=== PATIENT | male | born 1970 | race Hispanic/Latino ===

== ENCOUNTER 2016-11-24 04:33 | Inpatient (IN) | payer MEDICAID ==
--- NOTE | 2016-11-24 05:22 | ED PDOC ---
HPI: Psych/Substance Abuse Chief Complaint (Provider): pysch eval Additional Complaint(s): 46yo M in ED for eval of SI and depression-states he is homeless wanted to jump into the "river" and doesn't know how to swim tin efforts to kill himself. admits he isn't complains medication mental health meds. denies hallucinations <Flory Irwin - Last Filed: 11/24/16 05:15> <Alicia Garcia - Last Filed: 11/24/16 06:12> Time Seen by Provider: 11/24/16 05:08 Chief Complaint (Nursing): Psychiatric Evaluation Past Medical History Reviewed: Historical Data, Nursing Documentation, Vital Signs Vital Signs: Last Vital Signs Temp 98.1 F 11/24/16 05:02 Pulse 60 11/24/16 05:02 Resp 16 11/24/16 05:02 BP 147/80 11/24/16 05:02 Pulse Ox 96 11/24/16 05:02 - Medical History PMH: Bipolar Disorder, Depression, Schizophrenia Denies: Diabetes, Hepatitis, HIV, HTN, Chronic Kidney Disease, Seizures, Sexually Transmitted Disease - Family History Family History: States: Unknown Family Hx - Immunization History Hx Tetanus Toxoid Vaccination: Yes Hx Influenza Vaccination: No Hx Pneumococcal Vaccination: No <Flory Irwin - Last Filed: 11/24/16 05:15> Vital Signs: Last Vital Signs Temp 98.1 F 11/24/16 05:02 Pulse 60 11/24/16 05:02 Resp 16 11/24/16 05:02 BP 147/80 11/24/16 05:02 Pulse Ox 96 11/24/16 06:00 <Alicia Garcia - Last Filed: 11/24/16 06:12> - Home Medications Home Medications: Ambulatory Orders Medication Instructions Recorded Gabapentin [Neurontin] 400 mg PO TID #90 cap 10/01/16 QUEtiapine [Seroquel] 100 mg PO HS #30 tab 10/01/16 Sertraline [Zoloft] 100 mg PO DAILY #30 tab 10/01/16 traZODone [Desyrel] 100 mg PO HS PRN #30 tab 10/01/16 Gabapentin [Neurontin] 400 mg PO TID #90 cap 11/04/16 Mirtazapine [Remeron] 30 mg PO HS #30 tab 11/04/16 Sertraline [Zoloft] 100 mg PO DAILY #30 tab 11/04/16 traZODone [Desyrel] 50 mg PO HS PRN #30 tab 11/04/16 - Allergies Allergies/Adverse Reactions: Allergies Allergy/AdvReac Type Severity Reaction Status Date / Time FISH Allergy Severe RASH Verified 11/24/16 05:02 EGG Allergy RASH Verified 11/24/16 05:02 Penicillins Allergy RASH Verified 11/24/16 05:02 Review of Systems ROS Statement: Except As Marked, All Systems Reviewed And Found Negative Psych: Positive for: Depression, Suicidal ideation <Flory Irwin - Last Filed: 11/24/16 05:15> Physical Exam - Reviewed Nursing Documentation Reviewed: Yes Vital Signs Reviewed: Yes - Physical Exam Appears: Positive for: Non-toxic, No Acute Distress Head Exam: Positive for: ATRAUMATIC, NORMAL INSPECTION, NORMOCEPHALIC Skin: Positive for: Normal Color, Warm, DRY Eye Exam: Positive for: EOMI, Normal appearance, PERRL Cardiovascular/Chest: Positive for: Regular Rate, Rhythm Respiratory: Positive for: CNT, Normal Breath Sounds Gastrointestinal/Abdominal: Positive for: Normal Exam, Bowel Sounds, Soft. Negative for: Tenderness Neurologic/Psych: Positive for: Alert, Oriented, Mood/Affect (falt) <Flory Irwin - Last Filed: 11/24/16 05:15> - ECG O2 Sat by Pulse Oximetry: 96 - Progress ED Course And Treament: pt will alcohol levels, placed on 1:1 and crisis screening. <Flory Irwin - Last Filed: 11/24/16 05:15> Disposition - Patient ED Disposition Is Patient to be Admitted: Transfer of Care - Disposition Disposition Time: 06:00 Patient Signed Over To: Alicia Garcia Handoff Comments: crisis eval <Flory Irwin - Last Filed: 11/24/16 05:15> <Alicia Garcia - Last Filed: 11/24/16 06:12> - Clinical Impression Clinical Impression: Suicidal ideation - Disposition Condition: STABLE
--- NOTE | 2016-11-24 05:59 | ED PDOC ---
- ECG O2 Sat by Pulse Oximetry: 96 Medical Decision Making Medical Decision Making: Patient s/o from Yvonne Irwin PA-C at 0600 pending sobriety and crisis eval. Patient s/o to Dr. Victor at 0700 pending sobriety and crisis eval. Scribe Attestation: Documented by Sean Mccoy acting as a scribe for Alicia Garcia MD. Provider Scribe Attestation: All medical record entries made by the Scribe were at my direction and personally dictated by me. I have reviewed the chart and agree that the record accurately reflects my personal performance of the history, physical exam, medical decision making, and the department course for this patient. I have also personally directed, reviewed, and agree with the discharge instructions and disposition. Disposition - Clinical Impression Clinical Impression: Suicidal ideation - POA Present On Arrival: None - Disposition Disposition: Transfer of Care Disposition Time: 07:00 Condition: STABLE Patient Signed Over To: Brian Victor Handoff Comments: pending sobriety and crisis eval
--- NOTE | 2016-11-24 07:12 | ED PDOC ---
- Laboratory Results Result Diagrams: 11/24/16 08:20 11/24/16 08:28 - ECG O2 Sat by Pulse Oximetry: 96 (RA) Pulse Ox Interpretation: Normal Medical Decision Making Medical Decision Makin signed over to me by Yunier Garcia MD pending clinical sobriety, crisis evaluation 08 case discussed with motion picture set worker. EKG, labs, CXR, Ativan 1mg PO ordered. 0840 Prolonged QT noted on EKG per my interpretation. Will discuss with cardiology. [address] Glasgow in consideration of EKG finding and Zoloft in use by patient. Dr. Glasgow recommends monitoring patient and agrees with clearing him for psych admission. Recommends repeat EKG in AM Medically stable for psychiatric admission Disposition - Clinical Impression Clinical Impression: Suicidal ideation - POA Present On Arrival: None - Disposition Disposition: Admitted as In-Patient Disposition Time: 09:41 Condition: STABLE Additional Comments - Additional Comments Additional Comments: Scribe Attestation: Documented by Arik William acting as a scribe for Brian Victor MD. Provider Scribe Attestation: All medical record entries made by the Scribe were at my direction and personally dictated by me. I have reviewed the chart and agree that the record accurately reflects my personal performance of the history, physical exam, medical decision making, and the department course for this patient. I have also personally directed, reviewed, and agree with the discharge instructions and disposition.
[2016-11-24 08:26] LABS: ALB/GLOB RATIO 1.2 (1.0-2.1); ALKALINE PHOSPHATASE 123 U/L (38-126); ALT/SGPT 36 U/L (21-72); AST/SGOT 57 U/L (17-59); BILIRUBIN,TOTAL 0.8 mg/dl (0.2-1.3); BLOOD UREA NITROGEN 11 mg/dl (9-20); CALCIUM 9.2 mg/dL (8.4-10.2); CARBON DIOXIDE 21 mmol/L (22-30); CHLORIDE 106 mmol/L (98-107); GFR AFRICAN-AMERICAN > 60; GLUCOSE,RANDOM 81 mg/dL (75-110); POTASSIUM 4.3 MMOL/L (3.6-5.0); SODIUM 143 mmol/l (132-148); TOTAL PROTEIN 7.8 G/DL (6.3-8.2)
[2016-11-24 08:31] LABS: BASO % 0.3 % (0.0-2.0); EOS # 0.1 K/uL (0.0-0.7); EOS % 1.3 % (0.0-4.0); HEMATOCRIT 44.2 % (35.0-51.0); LYMPH # 1.4 K/uL (1.0-4.3); LYMPH % 18.8 % (20.0-40.0); MEAN CELL VOLUME 94.7 fl (80.0-94.0); MEAN CORPUSCULAR HEMOGLOBIN 32.4 pg (27.0-31.0); MEAN CORPUSCULAR HGB CONC 34.2 g/dL (33.0-37.0); MEAN PLATELET VOLUME 7.8 fl (7.2-11.7); MONO # 0.3 K/uL (0.0-0.8); MONO % 4.6 % (0.0-10.0); NEUT # 5.4 K/uL (1.8-7.0); NRBC % 0.1 % (0.0-0.0); WHITE BLOOD COUNT 7.2 K/uL (4.8-10.8)
--- NOTE | 2016-11-24 09:45 | RAD ---
HISTORY: psych clearance COMPARISON: Comparison made with prior chest radiograph 08/15/2012 TECHNIQUE: Chest PA and lateral FINDINGS: LUNGS: Moderately large hiatal hernia with what appears represent compressive type atelectasis left lung base. Additionally, there are slight increased/ coarsened interstitial markings with a few scattered peribronchial cuffing changes. Findings may represent sequela of reactive/ inflammatory airway disease. . PLEURA: No significant pleural effusion identified. No pneumothorax apparent. CARDIOVASCULAR: Heart size difficult to assess due to silhouetting border OSSEOUS STRUCTURES: Mild multilevel degenerative spondylosis of the thoracic spine. Additionally, a minor chronic anterior wedge deformities of multiple mid and lower thoracic segments. VISUALIZED UPPER ABDOMEN: Normal. OTHER FINDINGS: None. IMPRESSION: Moderately large hiatal hernia with what appears represent compressive type atelectasis left lung base. Additionally, there are slight increased/ coarsened interstitial markings with a few scattered peribronchial cuffing changes. Findings may represent sequela of reactive/ inflammatory airway disease. .
[2016-11-24] MEDS ORDERED: Alum-Mag Hydrox-Simethicone Susp (30 mL) PO PRN (13:04)
[2016-11-24] MEDS ORDERED: DiphenhydrAMINE 50 mg/ml Inj IM PRN (13:04)
[2016-11-24] MEDS ORDERED: Magnesium Hydroxide Susp 30 ml UD PO PRN (13:04)
[2016-11-24] MEDS ORDERED: Naproxen 500 MG TAB PO PRN (13:14)
--- NOTE | 2016-11-24 13:20 | CARD ---
APPROVED REPORT EKG Measurement Heart [id number] <Conclusion> Normal sinus rhythm Prolonged QT Abnormal ECG
--- NOTE | 2016-11-24 13:28 | PCM.PSYCH ---
Initial Psychiatric Evaluation - Initial Psychiatric Evaluation Type of Admission: Voluntary Legal Status: Capacity Chief Complaint (in patient's own words): i'm in pain Patient's Reaction to Hospitalization: cooperative. History of Present Illness and Precipitating Events: pt with history of alcohol, heroin, xanax dependence as well as depression. pt released from [facility] about 3 weeks ago. he was detoxed from alcohol/ benzos and opioids there and set to go to the [facility] for treatment. he did not go, but instead started working and again started drinking and using heroin. he states he uses about 6mg xanax, 8 drinks of rum and snorting 8-12 bags of heroin daily. he reports he did not take his psychiatric medications. he reports poor sleep and reports hearing voices telling him that he is worthless. pt reports suicidal thoughts, but feels safe in the hospital. he wants to again try to go to a rehab program and feels the [facility] helped him. he has been sober for an extended period of time after completing 3-4 months and states it was helpful to go to na/aa meetings. pt grew up in [place] , has his ged. he has family in [place] who is no longer supportive. he has no children. Current Medications: Active Medications Generic Name Dose Route Start Last Admin Trade Name Freq PRN Reason Stop Dose Admin Al Hydrox/Mg Hydrox/Simethicone 30 ml 11/24/16 13:04 Maalox Plus 30 Ml PO Q4 PRN Dyspepsia Clonidine HCl 0.1 mg 11/24/16 17:00 Catapres PO 11/27/16 17:01 Q8 IDALIA Cyclobenzaprine HCl 10 mg 11/24/16 13:10 Flexeril PO TID PRN Muscle spasm Diphenhydramine HCl 50 mg 11/24/16 13:04 Benadryl IM Q6 PRN Extrapyramidal S/S Unable PO Diphenhydramine HCl 50 mg 11/24/16 13:04 Benadryl PO Q6 PRN Extrapyramidal Symptoms Folic Acid 1 mg 11/25/16 09:00 Folic Acid PO DAILY IDALIA Gabapentin 400 mg 11/24/16 17:00 Neurontin PO TID IDALIA Haloperidol 5 mg 11/24/16 13:04 Haldol PO Q4 PRN Agitation Haloperidol Lactate 5 mg 11/24/16 13:04 Haldol IM Q4 PRN Agitation, Unable to Take PO Loperamide HCl 2 mg 11/24/16 13:08 Imodium PO Q4 PRN After Loose Bowel Movement Lorazepam 2 mg 11/24/16 13:04 Ativan IM Q4 PRN Anxiety/Agitation,Unable PO Lorazepam 2 mg 11/24/16 13:04 Ativan PO Q4 PRN Anxiety/Agitation Lorazepam 1 mg 11/24/16 17:00 Ativan PO BIDHS [facility] Magnesium Hydroxide 30 ml 11/24/16 13:04 Milk Of Magnesia PO HS PRN Constipation Multivitamins/Minerals 1 tab 11/25/16 09:00 Therapeutic-M Tab PO DAILY [facility] Naproxen 500 mg 11/24/16 13:14 Naproxen PO Q12 PRN Pain, severe (8-10) Ondansetron HCl 4 mg 11/24/16 13:09 Zofran Tab PO Q6 PRN Nausea/Vomiting Quetiapine Fumarate 50 mg 11/24/16 22:00 Seroquel PO HS [facility] Sertraline HCl 100 mg 11/25/16 09:00 Zoloft PO DAILY [facility] Thiamine HCl 100 mg 11/24/16 13:15 Vitamin B1 Tab PO DAILY [facility] Past Psychiatric History - Past Psychiatric History Previous Treatment History: Inpatient Prior Professional Help: recently at [facility] History of Abuse: denies History of ETOH/Drug Use: as per hpi History of Family Illness: pt denies Pertinent Medical Hx (Current Medical&Sleep Prob, Allergies): Allergies Allergy/AdvReac Type Severity Reaction Status Date / Time FISH Allergy Severe RASH Verified 11/24/16 05:02 EGG Allergy RASH Verified 11/24/16 05:02 Penicillins Allergy RASH Verified 11/24/16 05:02 QUEtiapine [Seroquel] 100 mg PO HS #30 tab 10/01/16 traZODone [Desyrel] 100 mg PO HS PRN #30 tab 10/01/16 Gabapentin [Neurontin] 400 mg PO TID #90 cap 11/04/16 Mirtazapine [Remeron] 30 mg PO HS #30 tab 11/04/16 Sertraline [Zoloft] 100 mg PO DAILY #30 tab 11/04/16 traZODone [Desyrel] 50 mg PO HS PRN #30 tab 11/04/16 Review of Systems - Psychiatric Psychiatric: As Per [facility] Mental Status Examination - Personal Presentation Personal Presentation: Looks stated age - Affect Affect: Constricted, Depressed - Motor Activity Motor Activity: Calm - Reliability in Providing Information Reliability in Providing Information: Good - Speech Speech: Organized - Mood Mood: Depressed, Anxious - Formal Thought Process Formal Thought Process: Hallucinations (hears voices telling him he's useless) - Hallucinations/Delusions Hallucinations: Auditory - Obsessions/Compulsions Obsessions: No Compulsions: No - Cognitive Functions Orientation: Person, Place, Situation, Time Sensorium: Alert Attention/Concentration: Attentive Abstract Thinking: [place] Estimate of Intelligence: Average Judgement: Intact, as evidence by: Insight regarding need for hospitalization Memory: Recent intact, as evidence by: Ability to recall events of the day, Recent impaired, as evidence by: Inability to recall events of the day - Risk Risk: Suicidal, Withdrawal, Diminished functioning - Strength & Assets Inventory Strength & Assets Inventory: Intelligence, Family support - Limitations Limitations: Other (lacks supports) DSM 5 DX - DSM 5 DSM 5 Diagnosis: polysubstance dependence (opioid/alcohol/sedative hypnotic) major depression recurrent severe with psychosis - Recommended/Plan of Treatment Treatment Recommendations and Plan of Treatment: admit to [facility] for safety and observation gather collateral information provide supportive therapy adjust medications- restart previous meds, prn meds for withdrawal. hospitalist consult- ankle injury disposition planning- refer back to [facility] Projected ELOS: 5-7 days Prognosis: fair - Smoking Cessation Smoking Cessation Initiated: No Reason for not providing: pt [place]
--- NOTE | 2016-11-24 14:10 | CP.PCM.CON ---
History of Present Illness - History of Present Illness History of Present Illness: 46 yo male with history of depression and multi-substance abuse admitted in psyche unit because of suicidal thoughts. Review of Systems - Review of Systems All systems: reviewed and no additional remarkable complaints except (aside from those mentioned above, 12 point system review were negative by me) Past Patient History - Past Medical History & Family History Past Medical History?: No - Past Social History Smoking Status: Heavy Smoker > 10 Cigarettes Daily Alcohol: > 2 Drinks/Day Drugs: Opiates, Prescription medications (Xanax) - CARDIAC Hx Cardiac Disorders: No Hx Hypertension: No - PULMONARY Hx Tuberculosis: No - NEUROLOGICAL HX Cerebrovascular Accident: No Hx Seizures: No - HEENT Hx HEENT Problems: No - RENAL Hx Chronic Kidney Disease: No - ENDOCRINE/METABOLIC Hx Endocrine Disorders: No - HEMATOLOGICAL/ONCOLOGICAL Hx Cancer: No Hx Human Immunodeficiency Virus (HIV): Yes (Not proved by lab work.) - INTEGUMENTARY Hx Dermatological Problems: No - MUSCULOSKELETAL/RHEUMATOLOGICAL Hx Falls: No - GASTROINTESTINAL Hx Gastrointestinal Disorders: No - GENITOURINARY/GYNECOLOGICAL Hx Sexually Transmitted Disorders: No - PSYCHIATRIC Hx Bipolar Disorder: Yes Hx Depression: Yes Hx Schizophrenia: Yes - SURGICAL HISTORY Hx Surgeries: Yes Hx Orthopedic Surgery: Yes (14 yrs ago rt ankle) - ANESTHESIA Hx Anesthesia: Yes Hx Anesthesia Reactions: No Hx Malignant Hyperthermia: No Meds Allergies/Adverse Reactions: Allergies Allergy/AdvReac Type Severity Reaction Status Date / Time FISH Allergy Severe RASH Verified 11/24/16 05:02 EGG Allergy RASH Verified 11/24/16 05:02 Penicillins Allergy RASH Verified 11/24/16 05:02 - Medications Medications: Current Medications Al Hydrox/Mg Hydrox/Simethicone (Maalox Plus 30 Ml) 30 ml PO Q4 PRN PRN Reason: Dyspepsia Clonidine HCl (Catapres) 0.1 mg PO Q8 IDALIA Stop: 11/27/16 17:01 Cyclobenzaprine HCl (Flexeril) 10 mg PO TID PRN PRN Reason: Muscle spasm Diphenhydramine HCl (Benadryl) 50 mg IM Q6 PRN PRN Reason: Extrapyramidal S/S Unable PO Diphenhydramine HCl (Benadryl) 50 mg PO Q6 PRN PRN Reason: Extrapyramidal Symptoms Folic Acid (Folic Acid) 1 mg PO DAILY IDALIA Gabapentin (Neurontin) 400 mg PO TID IDALIA Haloperidol (Haldol) 5 mg PO Q4 PRN PRN Reason: Agitation Haloperidol Lactate (Haldol) 5 mg IM Q4 PRN PRN Reason: Agitation, Unable to Take PO Loperamide HCl (Imodium) 2 mg PO Q4 PRN PRN Reason: After Loose Bowel Movement Lorazepam (Ativan) 2 mg IM Q4 PRN PRN Reason: Anxiety/Agitation,Unable PO Lorazepam (Ativan) 2 mg PO Q4 PRN PRN Reason: Anxiety/Agitation Lorazepam (Ativan) 1 mg PO BIDHS [facility] Magnesium Hydroxide (Milk Of Magnesia) 30 ml PO HS PRN PRN Reason: Constipation Multivitamins/Minerals (Therapeutic-M Tab) 1 tab PO DAILY [facility] Naproxen (Naproxen) 500 mg PO Q12 PRN PRN Reason: Pain, severe (8-10) Ondansetron HCl (Zofran Tab) 4 mg PO Q6 PRN PRN Reason: Nausea/Vomiting Quetiapine Fumarate (Seroquel) 50 mg PO HS [facility] Sertraline HCl (Zoloft) 100 mg PO DAILY [facility] Thiamine HCl (Vitamin B1 Tab) 100 mg PO DAILY IDALIA Physical Exam - Constitutional Appears: No Acute Distress, Other (sunburned/hyperemic face) - Head Exam Head Exam: ATRAUMATIC - Eye Exam Eye Exam: absent: Scleral icterus - ENT Exam ENT Exam: Mucous Membranes Moist - Neck Exam Neck exam: Negative for: Meningismus - Respiratory Exam Respiratory Exam: absent: Rhonchi, Wheezes, Respiratory Distress - Cardiovascular Exam Cardiovascular Exam: REGULAR RHYTHM, +S1, +S2 - GI/Abdominal Exam GI & Abdominal Exam: Soft. absent: Tenderness - Rectal Exam Rectal Exam: Deferred - Extremities Exam Extremities exam: Positive for: joint swelling (right ankle swollen, tender and painful on movement) - Neurological Exam Neurological exam: Alert, Oriented x3 - Psychiatric Exam Psychiatric exam: Normal Affect - Skin Skin Exam: Dry, Intact Results - Vital Signs Recent Vital Signs: Last Vital Signs Temp 98 F 11/24/16 09:10 Pulse 64 11/24/16 09:10 Resp 18 11/24/16 12:20 BP 134/64 11/24/16 09:10 Pulse Ox 96 11/24/16 09:41 - Labs Result Diagrams: 11/24/16 08:20 11/24/16 08:28 Assessment & Plan (1) Suicidal ideation Status: Acute Comment: psyche is managing (2) Swollen R ankle Status: Acute Comment: xray of right ankle. podiatry consult
--- NOTE | 2016-11-24 15:03 | CP.PCM.CON ---
History of Present Illness - History of Present Illness History of Present Illness: Podiatry consult note Past Patient History - Past Medical History & Family History Past Medical History?: No - Past Social History Smoking Status: Heavy Smoker > 10 Cigarettes Daily Alcohol: > 2 Drinks/Day Drugs: Opiates, Prescription medications (Xanax) - CARDIAC Hx Cardiac Disorders: No Hx Hypertension: No - PULMONARY Hx Tuberculosis: No - NEUROLOGICAL HX Cerebrovascular Accident: No Hx Seizures: No - HEENT Hx HEENT Problems: No - RENAL Hx Chronic Kidney Disease: No - ENDOCRINE/METABOLIC Hx Endocrine Disorders: No - HEMATOLOGICAL/ONCOLOGICAL Hx Cancer: No Hx Human Immunodeficiency Virus (HIV): Yes (Not proved by lab work.) - INTEGUMENTARY Hx Dermatological Problems: No - MUSCULOSKELETAL/RHEUMATOLOGICAL Hx Falls: No - GASTROINTESTINAL Hx Gastrointestinal Disorders: No - GENITOURINARY/GYNECOLOGICAL Hx Sexually Transmitted Disorders: No - PSYCHIATRIC Hx Bipolar Disorder: Yes Hx Depression: Yes Hx Schizophrenia: Yes - SURGICAL HISTORY Hx Surgeries: Yes Hx Orthopedic Surgery: Yes (14 yrs ago rt ankle) - ANESTHESIA Hx Anesthesia: Yes Hx Anesthesia Reactions: No Hx Malignant Hyperthermia: No Meds Allergies/Adverse Reactions: Allergies Allergy/AdvReac Type Severity Reaction Status Date / Time FISH Allergy Severe RASH Verified 11/24/16 05:02 EGG Allergy RASH Verified 11/24/16 05:02 Penicillins Allergy RASH Verified 11/24/16 05:02 - Medications Medications: Current Medications Al Hydrox/Mg Hydrox/Simethicone (Maalox Plus 30 Ml) 30 ml PO Q4 PRN PRN Reason: Dyspepsia Clonidine HCl (Catapres) 0.1 mg PO Q8 IDALIA Stop: 11/27/16 17:01 Cyclobenzaprine HCl (Flexeril) 10 mg PO TID PRN PRN Reason: Muscle spasm Last Admin: 11/24/16 14:14 Dose: 10 mg Diphenhydramine HCl (Benadryl) 50 mg IM Q6 PRN PRN Reason: Extrapyramidal S/S Unable PO Diphenhydramine HCl (Benadryl) 50 mg PO Q6 PRN PRN Reason: Extrapyramidal Symptoms Folic Acid (Folic Acid) 1 mg PO DAILY IDALIA Gabapentin (Neurontin) 400 mg PO TID IDALIA Haloperidol (Haldol) 5 mg PO Q4 PRN PRN Reason: Agitation Haloperidol Lactate (Haldol) 5 mg IM Q4 PRN PRN Reason: Agitation, Unable to Take PO Loperamide HCl (Imodium) 2 mg PO Q4 PRN PRN Reason: After Loose Bowel Movement Last Admin: 11/24/16 14:14 Dose: 2 mg Lorazepam (Ativan) 2 mg IM Q4 PRN PRN Reason: Anxiety/Agitation,Unable PO Lorazepam (Ativan) 2 mg PO Q4 PRN PRN Reason: Anxiety/Agitation Last Admin: 11/24/16 14:13 Dose: 2 mg Lorazepam (Ativan) 1 mg PO BIDHS [facility] Magnesium Hydroxide (Milk Of Magnesia) 30 ml PO HS PRN PRN Reason: Constipation Multivitamins/Minerals (Therapeutic-M Tab) 1 tab PO DAILY [facility] Naproxen (Naproxen) 500 mg PO Q12 PRN PRN Reason: Pain, severe (8-10) Last Admin: 11/24/16 14:13 Dose: 500 mg Ondansetron HCl (Zofran Tab) 4 mg PO Q6 PRN PRN Reason: Nausea/Vomiting Quetiapine Fumarate (Seroquel) 50 mg PO HS [facility] Sertraline HCl (Zoloft) 100 mg PO DAILY [facility] Thiamine HCl (Vitamin B1 Tab) 100 mg PO DAILY [facility] Last Admin: 11/24/16 14:15 Dose: 100 mg Results - Vital Signs Recent Vital Signs: Last Vital Signs Temp 98 F 11/24/16 09:10 Pulse 64 11/24/16 09:10 Resp 18 11/24/16 12:20 BP 134/64 11/24/16 09:10 Pulse Ox 96 11/24/16 09:41 - Labs Result Diagrams: 11/24/16 08:20 11/24/16 08:28
[2016-11-25 08:26] LABS: CHOLESTEROL 147 mg/dL (0-199)
[2016-11-25] MEDS: Multivitamin With Minerals Tab PO SCH (08:54)
--- NOTE | 2016-11-25 08:56 | PCM.PYCHPN ---
Psychiatric Progress Note - Psychiatric Progress Note Patient seen today, length of contact: discussed with team Patient Chief Complaint: feel ok Problems Identified/Issues Discussed: pt c/o nausea, diarrhea, muscle cramps in legs. he is still depressed. poor sleep. no c/o medication side effects. no c/o tremors or etoh withdrawal. states his ankle pain is improving. xray pending Medication Change: Yes (increase seroquel) Medical Record Reviewed: Yes Mental Status Examination - Cognitive Function Orientation: Person, Place, Situation, Time Memory: Intact Attention: WNL Concentration: WNL Association: WN Fund of Knowledge: [facility] Decription of patient's judgement and insights: fair - Mood Mood: Depressed, Anxious - Affect Affect: Constricted, Depressed - Formal Thought Process Formal Thought Process: No Impairment Psychotic Thoughts and Behaviors: denies a/v hallucinations - Suicidal Ideation Suicidal Ideation: No - Homicidal Ideation Homicidal Ideation: No Goal/Treatment Plan - Goal/Treatment Plan Need for Continued Stay: Remain at risks for inpatient hospitalization, Discharge may exacerbated symptoms Progress Toward Problem(s) and Goals/Treatment Plan: polysubstance dependence major depression recurrent severe continue current treatment increase seroquel refer to substance abuse treatment when psych symptoms stablize Estimated Date of D/C: 12/02/16 - Smoking Cessation Smoking Cessation Initiated: Yes
--- NOTE | 2016-11-25 11:11 | RAD ---
PROCEDURE: Right Ankle Radiographs. HISTORY: swollen right ankle post-injury COMPARISON: 08/20/2009 FINDINGS: BONES: No acute fracture. JOINTS: Tibiotalar articulation appears intact. Talonavicular osteoarthritis. Questionable partial ankylosis of posterior talocalcaneal articulation. Not fully evaluated. SOFT TISSUES: Normal. OTHER FINDINGS: None. IMPRESSION: No evidence of acute fracture.
[2016-11-26] MEDS: Multivitamin With Minerals Tab PO SCH (08:39)
--- NOTE | 2016-11-26 11:33 | PCM.PYCHPN ---
Psychiatric Progress Note - Psychiatric Progress Note Patient seen today, length of contact: discussed with team Patient Chief Complaint: i'm still depressed Problems Identified/Issues Discussed: pt seen in treatment team. still c/o feeling depressed. he is taking medications as prescribed. still with poor sleep. Medication Change: Yes (will increase neurontin at hs to help with sleep) Medical Record Reviewed: Yes Mental Status Examination - Cognitive Function Orientation: Person, Place, Situation, Time Memory: Intact Attention: WNL Concentration: WNL Association: WNL Fund of Knowledge: [facility] Decription of patient's judgement and insights: fair - Mood Mood: Depressed, Anxious - Affect Affect: Constricted, Depressed - Speech Speech: Appropriate - Formal Thought Process Formal Thought Process: No Impairment Psychotic Thoughts and Behaviors: denies a/v hallucinations - Suicidal Ideation Suicidal Ideation: No - Homicidal Ideation Homicidal Ideation: No Goal/Treatment Plan - Goal/Treatment Plan Need for Continued Stay: Remain at risks for inpatient hospitalization, Discharge may exacerbated symptoms Progress Toward Problem(s) and Goals/Treatment Plan: polysubstance dependence major depression recurrent severe continue current treatment increase neurontin refer to substance abuse treatment when psych symptoms stablize Estimated Date of D/C: 12/02/16
--- NOTE | 2016-11-26 12:05 | CP.PCM.CON ---
History of Present Illness - History of Present Illness History of Present Illness: 46 year old male seen at bedside in psych concerning pain s/p right ankle sprain suffered 3 days prior. Pt has been taking Naprosyn which has managed pain and swelling, the latter the patient has not noted in last 36 hours. Pt has no acute issue, Pain is currently a 3/10, well controlled. Pt denies recent f/c/cp/sob/n/v/f/c. Pt report she has a history of right foot sub-talar joint fusion. Past Patient History - Past Medical History & Family History Past Medical History?: No - Past Social History Smoking Status: Heavy Smoker > 10 Cigarettes Daily Alcohol: > 2 Drinks/Day Drugs: Opiates, Prescription medications (Xanax) - CARDIAC Hx Cardiac Disorders: No Hx Hypertension: No - PULMONARY Hx Tuberculosis: No - NEUROLOGICAL HX Cerebrovascular Accident: No Hx Seizures: No - HEENT Hx HEENT Problems: No - RENAL Hx Chronic Kidney Disease: No - ENDOCRINE/METABOLIC Hx Endocrine Disorders: No - HEMATOLOGICAL/ONCOLOGICAL Hx Cancer: No Hx Human Immunodeficiency Virus (HIV): Yes (Not proved by lab work.) - INTEGUMENTARY Hx Dermatological Problems: No - MUSCULOSKELETAL/RHEUMATOLOGICAL Hx Falls: No - GASTROINTESTINAL Hx Gastrointestinal Disorders: No - GENITOURINARY/GYNECOLOGICAL Hx Sexually Transmitted Disorders: No - PSYCHIATRIC Hx Bipolar Disorder: Yes Hx Schizophrenia: Yes Hx Substance Use: Yes (heroin,marijuana,xanax) - SURGICAL HISTORY Hx Surgeries: Yes Hx Orthopedic Surgery: Yes (14 yrs ago rt ankle) - ANESTHESIA Hx Anesthesia: Yes Hx Anesthesia Reactions: No Hx Malignant Hyperthermia: No Meds Allergies/Adverse Reactions: Allergies Allergy/AdvReac Type Severity Reaction Status Date / Time FISH Allergy Severe RASH Verified 11/24/16 05:02 EGG Allergy RASH Verified 11/24/16 05:02 Penicillins Allergy RASH Verified 11/24/16 05:02 - Medications Medications: Current Medications Al Hydrox/Mg Hydrox/Simethicone (Maalox Plus 30 Ml) 30 ml PO Q4 PRN PRN Reason: Dyspepsia Clonidine HCl (Catapres) 0.1 mg PO Q8 IDALIA Stop: 11/27/16 17:01 Last Admin: 11/26/16 08:37 Dose: 0.1 mg Cyclobenzaprine HCl (Flexeril) 10 mg PO TID PRN PRN Reason: Muscle spasm Last Admin: 11/26/16 08:38 Dose: 10 mg Diphenhydramine HCl (Benadryl) 50 mg IM Q6 PRN PRN Reason: Extrapyramidal S/S Unable PO Diphenhydramine HCl (Benadryl) 50 mg PO Q6 PRN PRN Reason: Extrapyramidal Symptoms Last Admin: 11/25/16 12:42 Dose: 50 mg Folic Acid (Folic Acid) 1 mg PO DAILY [facility] Last Admin: 11/26/16 08:38 Dose: 1 mg Gabapentin (Neurontin) 800 mg PO HS [facility] Gabapentin (Neurontin) 400 mg PO BID [facility] Haloperidol (Haldol) 5 mg PO Q4 PRN PRN Reason: Agitation Haloperidol Lactate (Haldol) 5 mg IM Q4 PRN PRN Reason: Agitation, Unable to Take PO Loperamide HCl (Imodium) 2 mg PO Q4 PRN PRN Reason: After Loose Bowel Movement Last Admin: 11/26/16 08:39 Dose: 2 mg Lorazepam (Ativan) 2 mg IM Q4 PRN PRN Reason: Anxiety/Agitation,Unable PO Lorazepam (Ativan) 2 mg PO Q4 PRN PRN Reason: Anxiety/Agitation Last Admin: 11/26/16 08:37 Dose: 2 mg Lorazepam (Ativan) 1 mg PO BID [facility] Last Admin: 11/26/16 11:16 Dose: Not Given Magnesium Hydroxide (Milk Of Magnesia) 30 ml PO HS PRN PRN Reason: Constipation Multivitamins/Minerals (Therapeutic-M Tab) 1 tab PO DAILY [facility] Last Admin: 11/26/16 08:39 Dose: 1 tab Naproxen (Naproxen) 500 mg PO Q12 PRN PRN Reason: Pain, severe (8-10) Last Admin: 11/24/16 14:13 Dose: 500 mg Ondansetron HCl (Zofran Tab) 4 mg PO Q6 PRN PRN Reason: Nausea/Vomiting Quetiapine Fumarate (Seroquel) 100 mg PO HS [facility] Last Admin: 11/25/16 21:06 Dose: 100 mg Sertraline HCl (Zoloft) 100 mg PO DAILY [facility] Last Admin: 11/26/16 08:39 Dose: 100 mg Thiamine HCl (Vitamin B1 Tab) 100 mg PO DAILY [facility] Last Admin: 11/26/16 08:39 Dose: 100 mg Physical Exam - Constitutional Appears: Non-toxic, No Acute Distress - Respiratory Exam Respiratory Exam: Clear to Auscultation Bilateral, NORMAL BREATHING PATTERN. absent: Chest Wall Tenderness, Decreased Breath Sounds - Extremities Exam Extremities exam: Negative for: calf tenderness, joint swelling, pedal edema Additional comments: Right foot focused. VASC: DP and Pt pedal pulses are fully intact, graded 2/4. No edema noted to right lower extremity. Negative for calt tenderness. NEURO: Protective sensation grossly intact to level of digits. MUSCK: Tenderness along lateral collateral ligaments. Severe 23 degree forefoot abduction noted. Limitation to ankle, joint ROM, absent crepitius. Pedal muscle strength to right leg graded 5/5 though weaker compared to contralateral limb in anterior, and posterior muscle groups. . Decreased muscle tone of right left and foot muscle. BIOMECH: Shortened stride lenght noted. Right foot absent notable heel contact moment, ground contact on this limb is into mid-stance. Base of gait unremarkable. Significant right shoulder drop noted. Abductory twist noted of right limb. 2.7 cm limb length discrepancy noted, right shorter than left, discrepency originating proximal to level of knee joints, structural in nature. No STJ ROM noted. Limitation to - Neurological Exam Neurological exam: Alert, Oriented x3 Results - Vital Signs Recent Vital Signs: Last Vital Signs Temp 97.1 F L 11/26/16 10:00 Pulse 65 11/26/16 10:00 Resp 18 11/26/16 10:00 BP 137/84 11/26/16 10:00 Pulse Ox 96 11/24/16 09:41 - Labs Result Diagrams: 11/24/16 08:20 11/24/16 08:28 Labs: Laboratory Results - last 24 hr 11/25/16 07:00 Hemoglobin A1c 4.9 Assessment & Plan - Assessment and Plan (Free Text) Assessment: 46 year old male 1) Right ankle inversion strain injury low, grade, no suspected ATFL of CF rupture 2) Right limb lenght discrepancy, level unknown. Plan: Pt evaluated and treated with attending, Dr. Renner present. - Radiographs reviewed, unremarkable for complications of inversion injury. -Sierra compression applied to accommodate swelling, Weight bearing as tolerated to heel, Post-op shoe to right foot. -continue Naprosyn as needed for pain. F/U in podiatry clinic for secondary bio-mechanical exam, pelvic and rojas x- ray to asses pelvic or spinal involvement in limb-lenght discrepancy and for assessment of appropriate heel lift addition for shoe gear. - Date & Time Date: 11/26/16 Time: 11:50
[2016-11-27] MEDS: Multivitamin With Minerals Tab PO SCH (08:54)
--- NOTE | 2016-11-27 13:09 | PCM.PYCHPN ---
Psychiatric Progress Note - Psychiatric Progress Note Patient seen today, length of contact: discussed with team Patient Chief Complaint: things are a little better Problems Identified/Issues Discussed: pt denies medication side effects. fair sleep. no c./o alcohol withdrawal. remains depressed. Medication Change: No ( ) Medical Record Reviewed: Yes Mental Status Examination - Cognitive Function Orientation: Person, Place, Situation, Time Memory: Intact Attention: WNL Concentration: WNL Association: WNL Fund of Knowledge: [facility] Decription of patient's judgement and insights: fair - Mood Mood: Depressed, Anxious - Affect Affect: Constricted, Depressed - Speech Speech: Appropriate - Formal Thought Process Formal Thought Process: No Impairment Psychotic Thoughts and Behaviors: denies a/v hallucinations - Suicidal Ideation Suicidal Ideation: No - Homicidal Ideation Homicidal Ideation: No Goal/Treatment Plan - Goal/Treatment Plan Need for Continued Stay: Remain at risks for inpatient hospitalization, Discharge may exacerbated symptoms Progress Toward Problem(s) and Goals/Treatment Plan: polysubstance dependence major depression recurrent severe continue current treatment- will start to taper ativan again tomorrow continue neurontin refer to substance abuse treatment when psych symptoms stablize Estimated Date of D/C: 12/02/16
--- NOTE | 2016-11-28 08:48 | PCM.PYCHPN ---
Psychiatric Progress Note - Psychiatric Progress Note Patient seen today, length of contact: discussed with team Patient Chief Complaint: i want to stay now Problems Identified/Issues Discussed: pt reports he was anxious yesterday and that's why he asked to leave. he wants to stay and wants to go to the [facility] pt is agreeable to an increase in his neurontin. he is starting to participate more in groups and treatment. Medication Change: Yes (increase neurontin) Medical Record Reviewed: Yes Mental Status Examination - Cognitive Function Orientation: Person, Place, Situation, Time Memory: Intact Attention: WNL Concentration: WNL Association: [facility] Fund of Knowledge: [facility] Decription of patient's judgement and insights: fair - Mood Mood: Depressed, Anxious - Affect Affect: Constricted, Depressed - Speech Speech: Appropriate - Formal Thought Process Formal Thought Process: No Impairment Psychotic Thoughts and Behaviors: denies a/v hallucinations - Suicidal Ideation Suicidal Ideation: No - Homicidal Ideation Homicidal Ideation: No Goal/Treatment Plan - Goal/Treatment Plan Need for Continued Stay: Remain at risks for inpatient hospitalization, Discharge may exacerbated symptoms Progress Toward Problem(s) and Goals/Treatment Plan: polysubstance dependence major depression recurrent severe continue current treatment- will continue to taper ativan continue neurontin- will increase the dose refer to substance abuse treatment when psych symptoms stablize Estimated Date of D/C: 12/02/16
[2016-11-28] MEDS: Multivitamin With Minerals Tab PO SCH (08:51)
[2016-11-29] MEDS: Multivitamin With Minerals Tab PO SCH (09:01)
--- NOTE | 2016-11-29 11:56 | PCM.PYCHPN ---
Psychiatric Progress Note - Psychiatric Progress Note Patient seen today, length of contact: Patient evaluated, case discussed with staff, chart reviewed Patient Chief Complaint: "I'm so-so" Problems Identified/Issues Discussed: Patient reports that he continues to feel depressed and that his mood fluctuates. He denied current ideation to harm himself, no psychosis. He engages appropriately with staff and peers, but mainly seems to sit quietly and stay to himself. He denies adverse effects to medications. No symptoms of ETOH withdrawal. Medication Change: Yes (Stop Ativan) Medical Record Reviewed: Yes Mental Status Examination - Cognitive Function Orientation: Person, Place, Situation, Time Memory: Intact Attention: WNL Concentration: WNL Association: WNL Fund of Knowledge: WNL - Mood Mood: Depressed, Anxious - Affect Affect: Constricted, Depressed - Speech Speech: Appropriate - Formal Thought Process Formal Thought Process: No Impairment Psychotic Thoughts and Behaviors: NO AH/VH/paranoia - Suicidal Ideation Suicidal Ideation: No - Homicidal Ideation Homicidal Ideation: No Goal/Treatment Plan - Goal/Treatment Plan Need for Continued Stay: Remain at risks for inpatient hospitalization, Severe depression anxiety, Discharge may exacerbated symptoms Progress Toward Problem(s) and Goals/Treatment Plan: 46 yo male w/ MDD and polysubstance dependence, continues to report depressed mood and symptoms of heroin withdrawal, he denies current ETOH w/drawal symptoms. He would benefit from continued hospitalization for treatment and stabilization. -Continue Neurontin 600 mg PO TID/ 800 mg PO HS, Seroquel 100 mg PO HS, Zoloft 100 mg PO Daily -Stop Ativan -Individual and group therapy Estimated Date of D/C: 12/02/16
[2016-11-29 17:52] VITALS: O2SAT 100
[2016-11-30] MEDS: Multivitamin With Minerals Tab PO SCH (08:14)
--- NOTE | 2016-11-30 11:20 | PCM.PYCHPN ---
Psychiatric Progress Note - Psychiatric Progress Note Patient seen today, length of contact: Patient evaluated, case discussed with staff, chart reviewed Patient Chief Complaint: "I'm good" Problems Identified/Issues Discussed: Patient reports improvement in his mood. He is goal oriented and would like to be discharged tomorrow. He denied current ideation to harm himself, no psychosis. He engages appropriately with staff and peers. He denies adverse effects to medications. No symptoms of ETOH withdrawal. Medication Change: No Medical Record Reviewed: Yes Mental Status Examination - Cognitive Function Orientation: Person, Place, Situation, Time Memory: Intact Attention: WNL Concentration: WNL Association: [facility] Fund of Knowledge: [facility] Decription of patient's judgement and insights: Fair I/J - Mood Mood: Neutral - Affect Affect: Constricted - Speech Speech: Appropriate - Formal Thought Process Formal Thought Process: No Impairment Psychotic Thoughts and Behaviors: NO AH/VH/paranoia - Suicidal Ideation Suicidal Ideation: No - Homicidal Ideation Homicidal Ideation: No Goal/Treatment Plan - Goal/Treatment Plan Need for Continued Stay: Remain at risks for inpatient hospitalization, Discharge may exacerbated symptoms Progress Toward Problem(s) and Goals/Treatment Plan: 46 yo male w/ MDD and polysubstance dependence, reports improvement in mood, and no longer reports opioid withdrawal symptoms, no symptoms of ETOH withdrawal. -Continue Neurontin 600 mg PO TID/ 800 mg PO HS, Seroquel 100 mg PO HS, Zoloft 100 mg PO Daily -Individual and group therapy Estimated Date of D/C: 12/01/16
[2016-12-01] MEDS: Multivitamin With Minerals Tab PO SCH (08:48)
[2016-12-01 09:43] VITALS: BP 153/96; PULSE 69; RESP 16; TEMP 98.1
--- NOTE | 2016-12-01 14:18 | PCM.PYCHDC ---
Mental Status Examination - Mental Status Examination Orientation: Person, Place, Situation, Time Memory: Intact Mood: Neutral Affect: Broad Speech: Appropriate Attention: WNL Concentration: WNL Association: WNL Fund of Knowledge: WNL Formal Thought Process: No Impairment Description of patient's judgement and insight: fair i/j Psychotic Thoughts and Behaviors: denies a/v hallucinations Suicidal Ideation: No Current Homicidal Ideation?: No Plan: pt denies any suicidal or homicidal thoughts/plans or intent Discharge Summary - Discharge Note Reason for Hospitalization: pt reported depression, suicidal thoughts in context of drug / alcohol use Psychiatric History (includes Medical, Family, Personal Hx): history of substance abuse, depression, mult. hospitalizations Consultations:: List each consultation separately and include: 1. Reason for request. 2. Findings. 3. Follow-up Consultations: seen by the hospitalist Summary of Hospital Course include:: 1. Description of specific treatment plan utilized for patients during their course of treatmen. 2. Summarize the time- course for resolution of acute symptoms and/or regressed behaviors. 3. Describe issues identified and worked on during hospitalization. 4. Describe medication utilized. 5. Describe medical problems identified and treated. 6. Reassessment of suicide risk Summary of Hospital Course: pt with history of alcohol, heroin, xanax dependence as well as depression. pt released from [facility] about 3 weeks ago. he was detoxed from alcohol/ benzos and opioids there and set to go to the [facility] for treatment. he did not go, but instead started working and again started drinking and using heroin. he states he uses about 6mg xanax, 8 drinks of rum and snorting 8-12 bags of heroin daily. he reports he did not take his psychiatric medications. he reports poor sleep and reports hearing voices telling him that he is worthless. pt reports suicidal thoughts, but feels safe in the hospital. he wants to again try to go to a rehab program and feels the [facility] helped him. he has been sober for an extended period of time after completing 3-4 months and states it was helpful to go to na/aa meetings. pt grew up in [place] , has his ged. he has family in [place] who is no longer supportive. he has no children. pt was admitted to [facility] and oriented to the unit. pt placed on routine safety protocols. pt started on medications to help with detox/withdrawal and started back on his home medications. he was referred to the [facility] at his request. his ankle was assessed by hospitalist and the podiatry team. he participated in treatment, took medications and was denying suicidal or homicidal thoughts at the time of discharge. he reported he would follow up with his [facility] referral on his own. - Final Diagnosis (DSM 5) Condition upon Discharge: STABLE DSM 5: polysubstance dependence major depression moderate recurrent Disposition: HOME/ ROUTINE Follow-up Treatment Plan: follow up with aftercare as directed take medications as prescribed do not use alcohol, tobacco or other illicit substances call 911 if any suicidal or homicidal thoughts attend aa/na meetings daily. f/u with podiatry regarding your ankle. Prescriptions/Medication Reconciliation: Folic Acid 1 mg PO DAILY #30 tab Gabapentin [Neurontin] 600 mg PO TID #90 tab Gabapentin [Neurontin] 800 mg PO HS #60 cap Multimineral/Multivitamin [Therapeutic-M Tab] 1 tab PO DAILY #30 tab Naproxen 500 mg PO Q12 PRN #30 tab PRN Reason: Pain, Severe (8-10) QUEtiapine [Seroquel] 100 mg PO HS #30 tab Sertraline [Zoloft] 100 mg PO DAILY #30 tab Thiamine [Vitamin B1 Tab] 100 mg PO DAILY #30 tab - Smoking Cessation Smoking Cessation Medication prescribed: No Reason for not providing: declines - Antipsychotic Medications Pt discharged on 2 or more routine antipsychotic medications: No
== END 2016-12-01 16:00 | disposition home or self-care (01) | DRG 885 ==
LOC: H.ER 04:33 → H.ERHOLD 09:42 → H.PSYCH 11:16
PROVIDERS: ADMIT Psychiatry & Neurology Psychiatry; ATTEND Psychiatry & Neurology Psychiatry
PROC: GZHZZZZ Group Psychotherapy (ICD-10-PCS; principal; 2016-11-24)
PROC: GZ58ZZZ Individual Psychotherapy, Cognitive-Behavioral (ICD-10-PCS; 2016-11-24)
DX: F33.3 Major depressive disorder, recurrent, severe with psychotic symptoms (principal); F11.20 Opioid dependence, uncomplicated; R45.851 Suicidal ideations; F19.20 Other psychoactive substance dependence, uncomplicated; F10.229 Alcohol dependence with intoxication, unspecified; S96.811A Strain of other specified muscles and tendons at ankle and foot level, right foot, initial encounter; Y90.6 Blood alcohol level of 120-199 mg/100 ml; Z59.0 Homelessness; F17.210 Nicotine dependence, cigarettes, uncomplicated; X50.0XXA Overexertion from strenuous movement or load, initial encounter; Z91.012 Allergy to eggs; Z88.0 Allergy status to penicillin; Z91.013 Allergy to seafood; Y93.9 Activity, unspecified; Y92.9 Unspecified place or not applicable

== ENCOUNTER 2016-12-07 19:20 | Emergency (ER) | payer MEDICAID ==
[2016-12-07 19:30] VITALS: BP 135/90; PULSE 108; RESP 18; TEMP 98; O2SAT 98
[2016-12-07 21:07] LABS: BASO # 0.1 K/uL (0.0-0.2); BASO % 0.7 % (0.0-2.0); EOS # 0.3 K/uL (0.0-0.7); EOS % 3.3 % (0.0-4.0); HEMATOCRIT 37.6 % (35.0-51.0); LYMPH # 2.1 K/uL (1.0-4.3); LYMPH % 24.5 % (20.0-40.0); MEAN CORPUSCULAR HGB CONC 33.7 g/dL (33.0-37.0); MEAN PLATELET VOLUME 7.2 fl (7.2-11.7); MONO # 0.4 K/uL (0.0-0.8); MONO % 4.7 % (0.0-10.0); NEUT # 5.7 K/uL (1.8-7.0); NEUT % 66.8 % (50.0-75.0); RED CELL DISTRIBUTION WIDTH 13.5 % (11.5-14.5); WHITE BLOOD COUNT 8.5 K/uL (4.8-10.8)
[2016-12-07 21:24] LABS: ALB/GLOB RATIO 1.5 (1.0-2.1); ALCOHOL SERUM 76 mg/dl (0-10); ALKALINE PHOSPHATASE 96 U/L (38-126); ALT/SGPT 30 U/L (21-72); AST/SGOT 34 U/L (17-59); BILIRUBIN,TOTAL 0.3 mg/dl (0.2-1.3); BLOOD UREA NITROGEN 13 mg/dl (9-20); CALCIUM 8.9 mg/dL (8.4-10.2); CARBON DIOXIDE 24 mmol/L (22-30); CHLORIDE 107 mmol/L (98-107); GFR AFRICAN-AMERICAN > 60; GLUCOSE,RANDOM 93 mg/dL (75-110); POTASSIUM 4.2 MMOL/L (3.6-5.0); SODIUM 142 mmol/l (132-148); TOTAL PROTEIN 6.9 G/DL (6.3-8.2)
--- NOTE | 2016-12-07 21:44 | ED PDOC ---
Lower Extremity Pain/Injury Time Seen by Provider: 12/07/16 19:36 Chief Complaint (Nursing): Lower Extremity Problem/Injury Chief Complaint (Provider): leg swelling Additional Complaint(s): pt w/ hx homelessness and polysubstance abuse states he woke up this am with B/ L leg swelling. denies associated fever, cp, sob, palp, dyspnea, orthopnea, numbness, weakness distally. states he usually has R ankle swelling due to previous sx but sx are worse and bilateral now. he also has had something similar in the past and was treated for cellulitis with clindamycin. Past Medical History Reviewed: Historical Data, Nursing Documentation, Vital Signs Vital Signs: Last Vital Signs Temp 98 F 12/07/16 19:26 Pulse 108 H 12/07/16 19:26 Resp 18 12/07/16 19:26 BP 135/90 12/07/16 19:26 Pulse Ox 98 12/07/16 19:26 - Medical History PMH: Bipolar Disorder, Depression, HIV (Not proved by lab work.), Schizophrenia Denies: Diabetes, Hepatitis, HTN, Chronic Kidney Disease, Seizures, Sexually Transmitted Disease - Family History Family History: States: Unknown Family Hx - Immunization History Hx Tetanus Toxoid Vaccination: Yes Hx Influenza Vaccination: No Hx Pneumococcal Vaccination: No - Home Medications Home Medications: Ambulatory Orders Medication Instructions Recorded Folic Acid 1 mg PO DAILY #30 tab 12/01/16 Gabapentin [Neurontin] 600 mg PO TID #90 tab 12/01/16 Gabapentin [Neurontin] 800 mg PO HS #60 cap 12/01/16 Multimineral/Multivitamin 1 tab PO DAILY #30 tab 12/01/16 [Therapeutic-M Tab] Naproxen 500 mg PO Q12 PRN #30 tab 12/01/16 QUEtiapine [Seroquel] 100 mg PO HS #30 tab 12/01/16 Sertraline [Zoloft] 100 mg PO DAILY #30 tab 12/01/16 Thiamine [Vitamin B1 Tab] 100 mg PO DAILY #30 tab 12/01/16 Clindamycin [Cleocin] 300 mg PO Q6 #28 cap 12/07/16 - Allergies Allergies/Adverse Reactions: Allergies Allergy/AdvReac Type Severity Reaction Status Date / Time FISH Allergy Severe RASH Verified 11/24/16 05:02 EGG Allergy RASH Verified 11/24/16 05:02 Penicillins Allergy RASH Verified 11/24/16 05:02 Review of Systems ROS Statement: Except As Marked, All Systems Reviewed And Found Negative Cardiovascular: Positive for: Edema Physical Exam - Reviewed Nursing Documentation Reviewed: Yes Vital Signs Reviewed: Yes - Physical Exam Appears: Positive for: Well, Non-toxic, No Acute Distress Skin: Positive for: Normal Color, Warm, DRY Neck: Positive for: Normal, Painless ROM Cardiovascular/Chest: Positive for: Regular Rate, Rhythm, Edema (1+ pitting edema B/L LE to mid calf). Negative for: Gallop, JVD, Murmur Respiratory: Positive for: CNT, Normal Breath Sounds Gastrointestinal/Abdominal: Positive for: Normal Exam, Bowel Sounds, Soft. Negative for: Tenderness Extremity: Positive for: Swelling (as above. n/v intact distally. skin intact. no warmth. dusky coloration medial ankles) Neurologic/Psych: Positive for: Alert, Oriented. Negative for: Motor/Sensory Deficits - Laboratory Results Result Diagrams: 12/07/16 21:00 12/07/16 21:00 - ECG O2 Sat by Pulse Oximetry: 98 Medical Decision Making Medical Decision Making: w/u initiated. ekg nsr at 82. no acute changes. cbc, chemistries wnl. trop, bnp pending. pt out of bed and removed his own IV saying he doesn't want to wait for results, just wants clindamycin so he can leave. pt understands risk of signing out ama. will give Rx for clindamycin. Disposition - Clinical Impression Clinical Impression: Edema - Patient ED Disposition Is Patient to be Admitted: No - Disposition Referrals: [facility] [Outside] Disposition: Against Medical Advice Disposition Time: 21:52 Condition: STABLE Prescriptions: Clindamycin [Cleocin] 300 mg PO Q6 #28 cap Instructions: Leg Edema (ED)
--- NOTE | 2016-12-08 08:49 | RAD ---
HISTORY: Edema. Portable semi erect study 20:56. COMPARISON: No prior. FINDINGS: LUNGS: No active pulmonary disease. PLEURA: No significant pleural effusion identified, no pneumothorax apparent. CARDIOVASCULAR: Normal. OSSEOUS STRUCTURES: No significant abnormalities. VISUALIZED UPPER ABDOMEN: Normal. OTHER FINDINGS: Stable large hiatal hernia. IMPRESSION: No active disease. No significant interval change compared to the prior examination(s).
--- NOTE | 2016-12-08 19:13 | CARD ---
APPROVED REPORT EKG Measurement Heart [id number] <Conclusion> Normal sinus rhythm Normal ECG
== END 2016-12-07 21:37 | disposition left against medical advice (07) ==
LOC: H.ER 19:20
DX: R60.0 Localized edema (principal); F20.9 Schizophrenia, unspecified; F31.9 Bipolar disorder, unspecified; Z88.0 Allergy status to penicillin

== ENCOUNTER 2016-12-22 16:24 | Emergency (ER) | payer MEDICAID, OTHER ==
[2016-12-22 16:28] VITALS: BP 173/98; TEMP 99
[2016-12-22 17:17] LABS: BASO % 0.6 % (0.0-2.0); EOS # 0.1 K/uL (0.0-0.7); EOS % 0.6 % (0.0-4.0); HEMATOCRIT 43.3 % (35.0-51.0); LYMPH # 2.2 K/uL (1.0-4.3); LYMPH % 27.4 % (20.0-40.0); MEAN CELL VOLUME 95.9 fl (80.0-94.0); MEAN CORPUSCULAR HEMOGLOBIN 32.4 pg (27.0-31.0); MEAN CORPUSCULAR HGB CONC 33.7 g/dL (33.0-37.0); MEAN PLATELET VOLUME 7.5 fl (7.2-11.7); MONO # 0.3 K/uL (0.0-0.8); MONO % 3.9 % (0.0-10.0); NEUT # 5.3 K/uL (1.8-7.0); NEUT % 67.5 % (50.0-75.0); RED CELL DISTRIBUTION WIDTH 13.6 % (11.5-14.5); WHITE BLOOD COUNT 7.9 K/uL (4.8-10.8)
[2016-12-22 17:33] LABS: ALB/GLOB RATIO 1.7 (1.0-2.1); ALCOHOL SERUM 239 mg/dl (0-10); ALKALINE PHOSPHATASE 83 U/L (38-126); ALT/SGPT 29 U/L (21-72); AST/SGOT 37 U/L (17-59); BILIRUBIN,TOTAL 0.5 mg/dl (0.2-1.3); BLOOD UREA NITROGEN 6 mg/dl (9-20); CALCIUM 8.8 mg/dL (8.4-10.2); CARBON DIOXIDE 20 mmol/L (22-30); CHLORIDE 106 mmol/L (98-107); GFR AFRICAN-AMERICAN > 60; GLUCOSE,RANDOM 92 mg/dL (75-110); POTASSIUM 3.9 MMOL/L (3.6-5.0); SODIUM 141 mmol/l (132-148); TOTAL PROTEIN 7.6 G/DL (6.3-8.2)
[2016-12-22 19:04] VITALS: PULSE 99; RESP 15
--- NOTE | 2016-12-22 19:11 | ED PDOC ---
HPI: Psych/Substance Abuse Time Seen by Provider: 12/22/16 16:40 Chief Complaint (Nursing): Syncope Chief Complaint (Provider): syncope Additional Complaint(s): 46yo M in ED for eval of substance abuse sent to ED via EMS responsive and alert with low Pulse Ox Past Medical History Reviewed: Historical Data, Nursing Documentation, Vital Signs Vital Signs: Last Vital Signs Temp 99.0 F 12/22/16 16:25 Pulse 128 H 12/22/16 16:40 Resp 20 12/22/16 16:40 BP 173/98 H 12/22/16 16:25 Pulse Ox 98 12/22/16 16:47 - Medical History PMH: Bipolar Disorder, Depression, HIV (Not proved by lab work.), Schizophrenia Denies: Diabetes, Hepatitis, HTN, Chronic Kidney Disease, Seizures, Sexually Transmitted Disease - Family History Family History: States: Unknown Family Hx - Immunization History Hx Tetanus Toxoid Vaccination: Yes Hx Influenza Vaccination: No Hx Pneumococcal Vaccination: No - Home Medications Home Medications: Ambulatory Orders Medication Instructions Recorded Folic Acid 1 mg PO DAILY #30 tab 12/01/16 Gabapentin [Neurontin] 600 mg PO TID #90 tab 12/01/16 Gabapentin [Neurontin] 800 mg PO HS #60 cap 12/01/16 Multimineral/Multivitamin 1 tab PO DAILY #30 tab 12/01/16 [Therapeutic-M Tab] Naproxen 500 mg PO Q12 PRN #30 tab 12/01/16 QUEtiapine [Seroquel] 100 mg PO HS #30 tab 12/01/16 Sertraline [Zoloft] 100 mg PO DAILY #30 tab 12/01/16 Thiamine [Vitamin B1 Tab] 100 mg PO DAILY #30 tab 12/01/16 Clindamycin [Cleocin] 300 mg PO Q6 #28 cap 12/07/16 - Allergies Allergies/Adverse Reactions: Allergies Allergy/AdvReac Type Severity Reaction Status Date / Time FISH Allergy Severe RASH Verified 11/24/16 05:02 EGG Allergy RASH Verified 11/24/16 05:02 Penicillins Allergy RASH Verified 11/24/16 05:02 Review of Systems ROS Statement: Except As Marked, All Systems Reviewed And Found Negative Constitutional: Negative for: Weakness Physical Exam - Reviewed Nursing Documentation Reviewed: Yes Vital Signs Reviewed: Yes - Physical Exam Appears: Positive for: No Acute Distress. Negative for: Non-toxic (inoxicatoin) Head Exam: Positive for: ATRAUMATIC, NORMAL INSPECTION, NORMOCEPHALIC Skin: Positive for: Normal Color, Warm, Dry, Diaphoresis Eye Exam: Positive for: EOMI. Negative for: Normal appearance, PERRL (dilated) ENT: Positive for: Normal ENT Inspection Neck: Positive for: Normal, Painless ROM Cardiovascular/Chest: Positive for: Regular Rate, Rhythm Respiratory: Positive for: CNT, Normal Breath Sounds Neurologic/Psych: Positive for: Alert, reimbursement analyst II-XII, Oriented - Laboratory Results Result Diagrams: 12/22/16 16:55 12/22/16 16:55 - ECG O2 Sat by Pulse Oximetry: 98 - Progress ED Course And Treament: pt will need EKG, director of cardiac cath lab and blood work due to elevated HR and low Pulse Ox however pt is not compliant very agitated and flight rsik, required 1: 1 and haldol IM due to Ativan IM back up. Medical Decision Making Medical Decision Making: Pt Alcohol level elevated criris evaluated pt and will be d/c. pt admitted she was SI, however cleared and admitted that he is looking to get admitted to [facility] floor., Pt is homeless. though Pt is has elevated HR he refuses to stay in ED. pt is clinically sober at this time for d/c Disposition - Clinical Impression Clinical Impression: Intoxication - Patient ED Disposition Is Patient to be Admitted: No Counseled Patient/Family Regarding: Need For Followup - Disposition Disposition: Routine/Home Disposition Time: 18:56 Condition: STABLE
[2016-12-22 19:12] VITALS: O2SAT 98
--- NOTE | 2016-12-23 16:46 | CARD ---
APPROVED REPORT EKG Measurement Heart [id number] <Conclusion> Sinus tachycardia Anterior infarct, age undetermined Abnormal ECG
== END 2016-12-22 19:00 | disposition home or self-care (01) ==
LOC: H.ER 16:24
DX: F10.129 Alcohol abuse with intoxication, unspecified (principal); F20.9 Schizophrenia, unspecified; F31.9 Bipolar disorder, unspecified; Z88.0 Allergy status to penicillin

== ENCOUNTER 2016-12-23 09:58 | Inpatient (IN) | payer MEDICAID, OTHER ==
[2016-12-23 10:04] VITALS: BMI 28.2
--- NOTE | 2016-12-23 10:34 | ED PDOC ---
HPI: Psych/Substance Abuse Time Seen by Provider: 12/23/16 10:30 Chief Complaint (Nursing): Psychiatric Evaluation Chief Complaint (Provider): crisis eval History Per: Patient Additional Complaint(s): 46-year-old male with history of alcohol, heroin and Xanax abuse presents to emergency department for crisis evaluation. Patient states he is feeling suicidal since yesterday. He states his plan would be to jump into the ocean. Patient admits to last using heroin this morning and also states that he drank alcohol this morning. The patient snorts heroin and denies IV use. He states he has not taken Xanax in over 24 hours. Patient offers no acute medical complaints at this time. Past Medical History Reviewed: Historical Data, Nursing Documentation, Vital Signs Vital Signs: Last Vital Signs Temp 98 F 12/23/16 10:04 Pulse 82 12/23/16 10:04 Resp 20 12/23/16 10:04 BP 151/95 H 12/23/16 10:04 Pulse Ox 98 12/23/16 10:17 - Medical History PMH: Bipolar Disorder, Depression, Schizophrenia - Surgical History Other surgeries: right leg surgery - Family History Family History: States: No Known Family Hx - Living Arrangements Living Arrangements: With Family - Social History Current smoker - smoking cessation education provided: Yes Alcohol: > 2 Drinks/Day Drugs: Opiates (snorts heroin), Other (xanax) - Home Medications Home Medications: Ambulatory Orders Medication Instructions Recorded Folic Acid 1 mg PO DAILY #30 tab 12/01/16 Gabapentin [Neurontin] 600 mg PO TID #90 tab 12/01/16 Gabapentin [Neurontin] 800 mg PO HS #60 cap 12/01/16 Multimineral/Multivitamin 1 tab PO DAILY #30 tab 12/01/16 [Therapeutic-M Tab] Naproxen 500 mg PO Q12 PRN #30 tab 12/01/16 QUEtiapine [Seroquel] 100 mg PO HS #30 tab 12/01/16 Sertraline [Zoloft] 100 mg PO DAILY #30 tab 12/01/16 Thiamine [Vitamin B1 Tab] 100 mg PO DAILY #30 tab 12/01/16 - Allergies Allergies/Adverse Reactions: Allergies Allergy/AdvReac Type Severity Reaction Status Date / Time FISH Allergy Severe RASH Verified 12/23/16 10:12 EGG Allergy RASH Verified 12/23/16 10:12 Penicillins Allergy RASH Verified 12/23/16 10:12 Review of Systems ROS Statement: Except As Marked, All Systems Reviewed And Found Negative Constitutional: Negative for: Fever Cardiovascular: Negative for: Chest Pain Gastrointestinal: Negative for: Nausea, Vomiting Psych: Positive for: Suicidal ideation, Other (etoh and heroin abuse) Physical Exam - Reviewed Vital Signs Reviewed: Yes - Physical Exam Appears: Positive for: Well, Non-toxic, No Acute Distress Skin: Negative for: Rash Eye Exam: Positive for: Normal appearance Cardiovascular/Chest: Positive for: Regular Rate, Rhythm Respiratory: Positive for: Normal Breath Sounds Neurologic/Psych: Positive for: Alert, Oriented, Mood/Affect (flat) - Laboratory Results Result Diagrams: 12/23/16 11:00 12/23/16 11:00 - ECG O2 Sat by Pulse Oximetry: 98 Pulse Ox Interpretation: Normal - Other Rad bedside chest X-Ray: Viewed By Me, Read By Radiologist X-Ray Interpretation: large hiatal hernia, no infiltrate Medical Decision Making Medical Decision Makin46 year old male with suicidal ideation Plan: Admit to ED observation Place under 1:1 bedside observation Crisis eval CBC CMP UA BAL CXR EKG ED OBSERVATION Date of observation admission: 12/23/16 Time of observation admission: 11:28 - Observation admission statement Patient is being placed in observation because:: ETOH intoxication, heroin use, suicidal ideation - Goals of Observation Goals of observation are:: Monitor patient while intoxicated, pending diagnostic testing results and crisis department disposition. - Progress Note Progress Note: 12/23/16 11:40 BAL is 271. Crisis to screen patient at 3 pm as per etoh level. He will remain under 1:1 bedside observation 12/23/16 13:30 Patient is sleeping, arousable, vital signs are stable, no airway compromise Disposition - Clinical Impression Clinical Impression: Suicidal ideation, Substance abuse - Patient ED Disposition Is Patient to be Admitted: Transfer of Care - Disposition Disposition: Transfer of Care Disposition Time: 14:05 Condition: FAIR Patient Signed Over To: Wade Song Handoff Comments: Case was signed out pending crisis disposition Results - Lab Results Lab Results: 12/23/16 12/23/16 12/23/16 11:00 11:00 11:00 WBC 6.6 RBC 4.57 Hgb 14.6 Hct 44.2 MCV 96.6 H MCH 31.9 H MCHC 33.0 RDW 13.7 Plt Count 262 MPV 7.5 Neut % (Auto) 64.8 Lymph % (Auto) 27.1 Pierce % (Auto) 5.9 Eos % (Auto) 1.3 Baso % (Auto) 0.9 Neut # 4.3 Lymph # 1.8 Pierce # 0.4 Eos # 0.1 Baso # 0.1 Sodium Potassium Chloride Carbon Dioxide Anion Gap BUN Creatinine Est GFR ( Amer) Est GFR (Non-Af Amer) Random Glucose Calcium Total Bilirubin AST ALT Alkaline Phosphatase Total Protein Albumin Globulin Albumin/Globulin Ratio Urine Color Colorless Urine Clarity Clear Urine pH 6.0 Ur Specific [place] < 1.005 Urine Protein Negative Urine Glucose (UA) Neg Urine Ketones Negative Urine Blood Negative Urine Nitrate Negative Urine Bilirubin Negative Urine Urobilinogen 0.2-1.0 Ur Leukocyte Esterase Neg Urine Microscopic WBC < 1 Ur Squamous Epith Cells < 1 Urine Opiates Screen Positive H Urine Methadone Screen Negative Ur Barbiturates Screen Negative Ur Phencyclidine Scrn Negative Ur Amphetamines Screen Negative U Benzodiazepines Scrn Negative U Oth Cocaine Metabols Negative U Cannabinoids Screen Negative Alcohol, Quantitative 12/23/16 11:00 WBC RBC Hgb Hct MCV MCH MCHC RDW Plt Count MPV Neut % (Auto) Lymph % (Auto) Pierce % (Auto) Eos % (Auto) Baso % (Auto) Neut # Lymph # Pierce # Eos # Baso # Sodium 143 Potassium 4.7 Chloride 107 Carbon Dioxide 24 Anion Gap 17 BUN 12 Creatinine 0.8 Est GFR ( Amer) > 60 Est GFR (Non-Af Amer) > 60 Random Glucose 83 Calcium 8.9 Total Bilirubin 0.4 AST 43 ALT 39 Alkaline Phosphatase 88 Total Protein 7.7 Albumin 4.8 Globulin 2.9 Albumin/Globulin Ratio 1.6 Urine Color Urine Clarity Urine pH Ur Specific [place] Urine Protein Urine Glucose (UA) Urine Ketones Urine Blood Urine Nitrate Urine Bilirubin Urine Urobilinogen Ur Leukocyte Esterase Urine Microscopic WBC Ur Squamous Epith Cells Urine Opiates Screen Urine Methadone Screen Ur Barbiturates Screen Ur Phencyclidine Scrn Ur Amphetamines Screen U Benzodiazepines Scrn U Oth Cocaine Metabols U Cannabinoids Screen Alcohol, Quantitative 271 H
[2016-12-23 11:24] LABS: BASO # 0.1 K/uL (0.0-0.2); BASO % 0.9 % (0.0-2.0); EOS # 0.1 K/uL (0.0-0.7); EOS % 1.3 % (0.0-4.0); HEMATOCRIT 44.2 % (35.0-51.0); LYMPH # 1.8 K/uL (1.0-4.3); LYMPH % 27.1 % (20.0-40.0); MEAN CELL VOLUME 96.6 fl (80.0-94.0); MEAN CORPUSCULAR HEMOGLOBIN 31.9 pg (27.0-31.0); MEAN PLATELET VOLUME 7.5 fl (7.2-11.7); MONO # 0.4 K/uL (0.0-0.8); MONO % 5.9 % (0.0-10.0); NEUT # 4.3 K/uL (1.8-7.0); NEUT % 64.8 % (50.0-75.0); NRBC % 0.1 % (0.0-0.0); RED CELL DISTRIBUTION WIDTH 13.7 % (11.5-14.5); WHITE BLOOD COUNT 6.6 K/uL (4.8-10.8)
[2016-12-23 11:28] LABS: URINE BILIRUBIN NEGATIVE (NEGATIVE); URINE BLOOD NEGATIVE (NEGATIVE); URINE COLOR COLORLESS (YELLOW); URINE GLUCOSE (UA) NEG (Normal); URINE KETONE NEGATIVE (NEGATIVE); URINE LEUKOCYTE ESTERASE NEG Leu/uL (Negative); URINE PROTEIN NEGATIVE (NEGATIVE); URINE UROBILINOGEN 0.2-1.0 mg/dL (0.2-1.0); WBC URINE < 1 /hpf (0-5)
[2016-12-23 11:36] LABS: ALB/GLOB RATIO 1.6 (1.0-2.1); ALCOHOL SERUM 271 mg/dl (0-10); ALKALINE PHOSPHATASE 88 U/L (38-126); ALT/SGPT 39 U/L (21-72); AST/SGOT 43 U/L (17-59); BILIRUBIN,TOTAL 0.4 mg/dl (0.2-1.3); BLOOD UREA NITROGEN 12 mg/dl (9-20); CALCIUM 8.9 mg/dL (8.4-10.2); CARBON DIOXIDE 24 mmol/L (22-30); CHLORIDE 107 mmol/L (98-107); GFR AFRICAN-AMERICAN > 60; GLUCOSE,RANDOM 83 mg/dL (75-110); POTASSIUM 4.7 MMOL/L (3.6-5.0); SODIUM 143 mmol/l (132-148); TOTAL PROTEIN 7.7 G/DL (6.3-8.2)
--- NOTE | 2016-12-23 13:12 | RAD ---
HISTORY: clearance COMPARISON: 12/07/2016 FINDINGS: LUNGS: No pulmonary infiltrate. Probable linear atelectasis at left lung base. PLEURA: No significant pleural effusion identified, no pneumothorax apparent. CARDIOVASCULAR: Normal heart size. Large hiatal hernia. This is grossly unchanged from the prior examination. OSSEOUS STRUCTURES: No significant abnormalities. VISUALIZED UPPER ABDOMEN: Normal. OTHER FINDINGS: None. IMPRESSION: Large hiatal hernia. Minimal linear atelectasis at left base.
--- NOTE | 2016-12-23 16:06 | ED PDOC ---
- Laboratory Results Result Diagrams: 12/23/16 11:00 12/23/16 11:00 - ECG O2 Sat by Pulse Oximetry: 98 - Progress ED Course And Treament: SEEN BY CRISIS ADMITTED TO DR. VELASQUEZ DEPRESSION/ALCOHOL ABUSE Disposition - Clinical Impression Clinical Impression: Suicidal ideation, Substance abuse - POA Present On Arrival: None - Disposition Disposition: Admitted as In-Patient Disposition Time: 16:06 Condition: FAIR
--- NOTE | 2016-12-23 17:03 | CARD ---
APPROVED REPORT EKG Measurement Heart [id number] <Conclusion> Normal sinus rhythm Normal ECG
[2016-12-23] MEDS ORDERED: DiphenhydrAMINE 50 mg/ml Inj IM PRN (17:38)
[2016-12-23] MEDS ORDERED: Magnesium Hydroxide Susp 30 ml UD PO PRN (17:38)
[2016-12-23] MEDS ORDERED: Alum-Mag Hydrox-Simethicone Susp (30 mL) PO PRN (17:38)
[2016-12-23 18:27] LABS: CHOLESTEROL 170 mg/dL (0-199)
[2016-12-24 07:23] LABS: T4 6.65 ug/dl (5.5-11.0)
[2016-12-24 07:37] LABS: THYROID STIMULATING HORMONE 0.67 mIU/ML (0.46-4.68)
--- NOTE | 2016-12-24 15:49 | PCM.PSYCH ---
Initial Psychiatric Evaluation - Initial Psychiatric Evaluation Type of Admission: Voluntary Legal Status: Capacity Chief Complaint (in patient's own words): it's the same thing over again Patient's Reaction to Hospitalization: cooperative History of Present Illness and Precipitating Events: 46 yo male, history of depression, opioid and alcohol use. reports he stopped taking care of self after he left, started working and then again went back to using heroin and alcohol. his alcohol level was elevated. he reports that he has some passive suicidal thoughts, but really wanted to come her to get help. he is anxious, tired of his current lifestyle. he stated in the ER that he wanted to jump in the river to end his life. now he is denying this. he also reported in the er he was hearing voices, but now he is denying that. he reports his mood is down and that he has had many loses in his life that are upsetting to him. Current Medications: Active Medications Generic Name Dose Route Start Last Admin Trade Name Freq PRN Reason Stop Dose Admin Acetaminophen 650 mg 12/23/16 17:38 12/24/16 13:53 Tylenol 325mg Tab PO 650 mg Q4 PRN Administration Pain, moderate (4-7) Al Hydrox/Mg Hydrox/Simethicone 30 ml 12/23/16 17:38 12/24/16 06:14 Maalox Plus 30 Ml PO 30 ml Q4 PRN Administration Dyspepsia Chlordiazepoxide 50 mg 12/24/16 09:00 12/24/16 09:15 Librium PO 50 mg Q12 IDALIA Administration Clonidine HCl 0.1 mg 12/24/16 09:00 12/24/16 09:07 Catapres PO 0.1 mg Q8 IDALIA Administration Diphenhydramine HCl 50 mg 12/23/16 17:38 Benadryl IM Q6 PRN Extrapyramidal S/S Unable PO Diphenhydramine HCl 50 mg 12/23/16 17:38 12/24/16 01:03 Benadryl PO 50 mg Q6 PRN Administration Extrapyramidal Symptoms Folic Acid 1 mg 12/25/16 09:00 Folic Acid PO DAILY IDALIA Gabapentin 800 mg 12/24/16 22:00 Neurontin PO HS IDALIA Gabapentin 600 mg 12/24/16 17:00 Neurontin PO TID IDALIA Haloperidol 5 mg 12/23/16 17:38 Haldol PO Q4 PRN Agitation Haloperidol Lactate 5 mg 12/23/16 17:38 Haldol IM Q4 PRN Agitation, Unable to Take PO Ibuprofen 600 mg 12/24/16 08:50 12/24/16 09:10 Motrin Tab PO 600 mg Q8 PRN Administration Pain, moderate (4-7) Loperamide HCl 2 mg 12/24/16 08:50 12/24/16 14:02 Imodium PO 2 mg QID PRN Administration Diarrhea Lorazepam 2 mg 12/23/16 17:38 Ativan IM Q4 PRN Anxiety/Agitation,Unable PO Lorazepam 2 mg 12/23/16 17:38 12/24/16 12:09 Ativan PO 2 mg Q4 PRN Administration Anxiety/Agitation Magnesium Hydroxide 30 ml 12/23/16 17:38 Milk Of Magnesia PO HS PRN Constipation Quetiapine Fumarate 100 mg 12/24/16 22:00 Seroquel PO HS IDALIA Sertraline HCl 100 mg 12/25/16 09:00 Zoloft PO DAILY IDALIA Thiamine HCl 100 mg 12/25/16 09:00 Vitamin B1 Tab PO DAILY IDALIA Past Psychiatric History - Past Psychiatric History Previous Treatment History: Inpatient Prior Professional Help: feels Ludi was helpful in past At [facility]: recent admission here at [facility] History of Abuse: reports trauma from recentl loses. pt has been incarcerated in past. History of ETOH/Drug Use: states he was drinking beer on day of admission and is a daily drink: bal was over 200. snorted 3 bags of heroin prior to admission. pack of cigarettes daily. History of Family Illness: reports history of cancer in family- breast, lung, throat. Pertinent Medical Hx (Current Medical&Sleep Prob, Allergies): Allergies Allergy/AdvReac Type Severity Reaction Status Date / Time FISH Allergy Severe RASH Verified 12/23/16 10:12 EGG Allergy RASH Verified 12/23/16 10:12 Penicillins Allergy RASH Verified 12/23/16 10:12 Folic Acid 1 mg PO DAILY #30 tab 12/01/16 Gabapentin [Neurontin] 600 mg PO TID #90 tab 12/01/16 Gabapentin [Neurontin] 800 mg PO HS #60 cap 12/01/16 Multimineral/Multivitamin [Therapeutic-M Tab] 1 tab PO DAILY #30 tab 12/01/16 Naproxen 500 mg PO Q12 PRN #30 tab 12/01/16 QUEtiapine [Seroquel] 100 mg PO HS #30 tab 12/01/16 Sertraline [Zoloft] 100 mg PO DAILY #30 tab 12/01/16 Thiamine [Vitamin B1 Tab] 100 mg PO DAILY #30 tab 12/01/16 reports he is concerned with a mass under his left rib cage Review of Systems - Psychiatric Psychiatric: As Per [facility] Mental Status Examination - Personal Presentation Personal Presentation: Looks stated age - Affect Affect: Constricted - Motor Activity Motor Activity: Calm - Reliability in Providing Information Reliability in Providing Information: Fair - Speech Speech: Organized - Mood Mood: Depressed, Anxious - Formal Thought Process Formal Thought Process: No Impairment Additional comments: denies he is having any auditory or visual hallucinations - Obsessions/Compulsions Obsessions: No Compulsions: No - Cognitive Functions Orientation: Person, Place, Situation, Time Sensorium: Alert Attention/Concentration: Attentive Abstract Thinking: [place] Estimate of Intelligence: Average Judgement: Intact, as evidence by: Insight regarding need for hospitalization Memory: Recent intact, as evidence by: Ability to recall events of the day, Remote intact, as evidenced by: Abilit to recall sig. life events - Risk Risk: Suicidal (denies any plan, intent currently. wants to go to rehab), Withdrawal - Strength & Assets Inventory Strength & Assets Inventory: Intelligence, Employment history, Life experience DSM 5 DX - DSM 5 DSM 5 Diagnosis: bipoolar disorder unspecified alcohol dependence opioid dependence sedative hypnotic dependence - Recommended/Plan of Treatment Treatment Recommendations and Plan of Treatment: admit to [facility] for safety and observation gather collateral information provide supportive therapy adjust medications- restart previous meds. detox meds. hospitalist consult disposition planning- refer to inpt rehab programs. Projected ELOS: 5-7 days Prognosis: fair - Smoking Cessation Smoking Cessation Initiated: Yes
--- NOTE | 2016-12-25 08:42 | PCM.PYCHPN ---
Psychiatric Progress Note - Psychiatric Progress Note Patient seen today, length of contact: discussed with team Patient Chief Complaint: i 'm ok Problems Identified/Issues Discussed: pt with some irritability, tremors, cramps. he feels he slept well. he is out and trying to socialize with peers. pt wants to get treatment for substance abuse. Medication Change: No Medical Record Reviewed: Yes Mental Status Examination - Cognitive Function Orientation: Person, Place, Situation, Time Memory: Intact Attention: WNL Concentration: WNL Association: WNL Fund of Knowledge: [facility] Decription of patient's judgement and insights: fair - Mood Mood: Anxious - Affect Affect: Constricted - Speech Speech: Appropriate - Formal Thought Process Formal Thought Process: No Impairment - Suicidal Ideation Suicidal Ideation: No - Homicidal Ideation Homicidal Ideation: No Plan: denies suicidal ro homicidal thoughts Goal/Treatment Plan - Goal/Treatment Plan Need for Continued Stay: Remain at risks for inpatient hospitalization, Severe functional impairment Progress Toward Problem(s) and Goals/Treatment Plan: polysubstance dependence bipolar disorder needs further treatment aurelia the librium continue current medications refer to in substance abuse treatment Estimated Date of D/C: 12/31/16 - Smoking Cessation Smoking Cessation Initiated: Yes
--- NOTE | 2016-12-25 17:22 | CP.PCM.CON ---
History of Present Illness - History of Present Illness History of Present Illness: Hospitalist Consult H&P (Patient was seen and examined at 3:50 PM 12/25/16 318-1 with Psychiatry Nurse) 46 year old male who was admitted to the In-Patient Psychiatry Unit because of Suicide Ideation Currently upon FULL ROS there is NO chest pain, NO palpitations, NO SOB/Cough/ Wheezing,NO dysphagia/odynophagia, NO abdominal pain, NO n/v/d/c, NO black/ bloody stools, NO burning/pain with urination, NO lightheadedness/dizziness, NO paresthesias, NO edema, NO new changes in vision/eye pain, NO new changes in hearing/ear pain PMHx: Depression, Multisubstance Abuse, SI PSHx: Right Ankle Surgery with metal hardware (16 years old) ALL: PCN, Fish, Eggs Meds: Please see list Social Hx: (+) Tobacco, (+) Alcohol, (+) Drug Abuse: opiates, xanax, heroin ( last use of both heroin and alcohol the morning of presentation) Family Hx: Mom (Breast CA) Physical Exam: HEENT: NCA, EOMI, PERRLA, NO pharyngeal erythema/exudate, NO thyromegaly, NO cervical/supraclavicular/submandibular lymphadenopathy, Oral Mucosa and Nasal Turbinates are moist Cardio: NS1 and NS2, NO M/R/G Resp: CTA B/L, NO R/R/W, Left Anterior Lower Rib Cage (last rib) Lipoma roughly 1 cm in diameter GI: BSx4, Soft, NT, ND, NO HSM, NO guarding/rebound tenderness Ext: Pulses are strong and equal, NO edema, Capillary Refill is 2 seconds Neuro: CN II through XII are grossly intact Assessment and Plan: 1). Elevated Blood Pressure Added Lisinopril 5 mg PO 1x/day Can not use Beta Kalee in this patient considering polysubstance abuse 2). Lipoma Left Anterior Lowest Rib Explained to patient that I felt that this was Lipoma as it was round, freely movable, nontender, soft He is still concerned as he stated that "that is what they told my mom and then she had breast cancer" I explaine to him that he would then follow up with his PMD, and as he does not have one, he will be provided with the [facility] information: [address] [place] [address] ([phone]) for further management of this issue. 3). Bipolar Disorder Treatment as per Psychiatry. Karthikeyan Song D.O. Past Patient History - Infectious Disease Hx of Infectious Diseases: None - Past Medical History & Family History Past Medical History?: No - Past Social History Alcohol: > 2 Drinks/Day Drugs: Opiates (snorts heroin), Other (xanax) - CARDIAC Hx Cardiac Disorders: No - PULMONARY Hx Tuberculosis: No - NEUROLOGICAL HX Cerebrovascular Accident: No Hx Seizures: No - HEENT Hx HEENT Problems: No - RENAL Hx Chronic Kidney Disease: No - ENDOCRINE/METABOLIC Hx Endocrine Disorders: No - HEMATOLOGICAL/ONCOLOGICAL Hx Cancer: No Hx Human Immunodeficiency Virus (HIV): Yes (Not proved by lab work.) - INTEGUMENTARY Hx Dermatological Problems: No - MUSCULOSKELETAL/RHEUMATOLOGICAL Hx Falls: No - GASTROINTESTINAL Hx Gastrointestinal Disorders: No - GENITOURINARY/GYNECOLOGICAL Hx Sexually Transmitted Disorders: No - PSYCHIATRIC Hx Anxiety: Yes Hx Depression: Yes Hx Substance Use: Yes - SURGICAL HISTORY Hx Surgeries: Yes Hx Orthopedic Surgery: Yes (16 yrs ago rt ankle) - ANESTHESIA Hx Anesthesia: Yes Hx Anesthesia Reactions: No Hx Malignant Hyperthermia: No Meds Allergies/Adverse Reactions: Allergies Allergy/AdvReac Type Severity Reaction Status Date / Time FISH Allergy Severe RASH Verified 12/23/16 10:12 EGG Allergy RASH Verified 12/23/16 10:12 Penicillins Allergy RASH Verified 12/23/16 10:12 - Medications Medications: Current Medications Acetaminophen (Tylenol 325mg Tab) 650 mg PO Q4 PRN PRN Reason: Pain, moderate (4-7) Last Admin: 12/24/16 13:53 Dose: 650 mg Al Hydrox/Mg Hydrox/Simethicone (Maalox Plus 30 Ml) 30 ml PO Q4 PRN PRN Reason: Dyspepsia Last Admin: 12/24/16 06:14 Dose: 30 ml Chlordiazepoxide (Librium) 50 mg PO Q12 IDALIA Last Admin: 12/25/16 09:20 Dose: 50 mg Clonidine HCl (Catapres) 0.1 mg PO Q8 IDALIA Last Admin: 12/25/16 16:49 Dose: 0.1 mg Diphenhydramine HCl (Benadryl) 50 mg IM Q6 PRN PRN Reason: Extrapyramidal S/S Unable PO Diphenhydramine HCl (Benadryl) 50 mg PO Q6 PRN PRN Reason: Extrapyramidal Symptoms Last Admin: 12/25/16 01:53 Dose: 50 mg Folic Acid (Folic Acid) 1 mg PO DAILY [facility] Last Admin: 12/25/16 09:20 Dose: 1 mg Gabapentin (Neurontin) 800 mg PO HS [facility] Last Admin: 12/24/16 21:22 Dose: 800 mg Gabapentin (Neurontin) 600 mg PO TID [facility] Last Admin: 12/25/16 16:49 Dose: 600 mg Haloperidol (Haldol) 5 mg PO Q4 PRN PRN Reason: Agitation Haloperidol Lactate (Haldol) 5 mg IM Q4 PRN PRN Reason: Agitation, Unable to Take PO Ibuprofen (Motrin Tab) 600 mg PO Q8 PRN PRN Reason: Pain, moderate (4-7) Last Admin: 12/24/16 09:10 Dose: 600 mg Loperamide HCl (Imodium) 2 mg PO QID PRN PRN Reason: Diarrhea Last Admin: 12/25/16 09:24 Dose: 2 mg Lorazepam (Ativan) 2 mg IM Q4 PRN PRN Reason: Anxiety/Agitation,Unable PO Lorazepam (Ativan) 2 mg PO Q4 PRN PRN Reason: Anxiety/Agitation Last Admin: 12/25/16 11:16 Dose: 2 mg Magnesium Hydroxide (Milk Of Magnesia) 30 ml PO HS PRN PRN Reason: Constipation Nicotine (Nicoderm Cq) 1 patch TD DAILY [facility] Last Admin: 12/25/16 09:21 Dose: 1 patch Quetiapine Fumarate (Seroquel) 100 mg PO HS [facility] Last Admin: 12/24/16 21:23 Dose: 100 mg Sertraline HCl (Zoloft) 100 mg PO DAILY [facility] Last Admin: 12/25/16 09:20 Dose: 100 mg Thiamine HCl (Vitamin B1 Tab) 100 mg PO DAILY [facility] Last Admin: 12/25/16 09:20 Dose: 100 mg Results - Vital Signs Recent Vital Signs: Last Vital Signs Temp 97.3 F L 12/25/16 16:10 Pulse 100 H 12/25/16 16:49 Resp 20 12/25/16 16:10 BP 147/77 06/08/17 16:49 Pulse Ox 96 12/23/16 16:41 - Labs Result Diagrams: 12/23/16 11:00 12/23/16 11:00
--- NOTE | 2016-12-26 12:43 | PCM.PYCHPN ---
Psychiatric Progress Note - Psychiatric Progress Note Patient seen today, length of contact: discussed with team Patient Chief Complaint: i feel ok doc Problems Identified/Issues Discussed: pt less anxious/irritable today. he denies medication side effects. continues to have struggles sleeping. Medication Change: Yes (start doxepin) Medical Record Reviewed: Yes Mental Status Examination - Cognitive Function Orientation: Person, Place, Situation, Time Memory: Intact Attention: WNL Concentration: WNL Association: WNL Fund of Knowledge: [facility] Decription of patient's judgement and insights: fair - Mood Mood: Anxious - Affect Affect: Constricted - Speech Speech: Appropriate - Formal Thought Process Formal Thought Process: No Impairment - Suicidal Ideation Suicidal Ideation: No - Homicidal Ideation Homicidal Ideation: No Goal/Treatment Plan - Goal/Treatment Plan Need for Continued Stay: Remain at risks for inpatient hospitalization, Severe functional impairment Progress Toward Problem(s) and Goals/Treatment Plan: polysubstance dependence bipolar disorder needs further treatment will lower ativan dose this weekend start doxepin for sleep continue current medications refer to in substance abuse treatment Estimated Date of D/C: 12/31/16
--- NOTE | 2016-12-27 12:14 | PCM.PYCHPN ---
Psychiatric Progress Note - Psychiatric Progress Note Patient seen today, length of contact: discussed with team Patient Chief Complaint: i still feel anxious Problems Identified/Issues Discussed: pt still looking for ativan frequently. feels anxious. feels doxepin helped him sleep. social with peers. Medication Change: Yes (increase neurontin) Medical Record Reviewed: Yes Mental Status Examination - Cognitive Function Orientation: Person, Place, Situation, Time Memory: Intact Attention: WNL Concentration: WNL Association: WNL Fund of Knowledge: [facility] Decription of patient's judgement and insights: fair - Mood Mood: Anxious - Affect Affect: Constricted - Speech Speech: Appropriate - Formal Thought Process Formal Thought Process: No Impairment - Suicidal Ideation Suicidal Ideation: No - Homicidal Ideation Homicidal Ideation: No Goal/Treatment Plan - Goal/Treatment Plan Need for Continued Stay: Remain at risks for inpatient hospitalization, Severe functional impairment Progress Toward Problem(s) and Goals/Treatment Plan: polysubstance dependence bipolar disorder needs further treatment will lower ativan dose and dc after tomorrow continue doxepin for sleep continue current medications refer to in substance abuse treatment pt can call timmy [phone] to be referred to a community reintegration program Estimated Date of D/C: 12/31/16 - Smoking Cessation Smoking Cessation Initiated: Yes
--- NOTE | 2016-12-28 12:47 | PCM.PYCHPN ---
Psychiatric Progress Note - Psychiatric Progress Note Patient seen today, length of contact: discussed with team Patient Chief Complaint: i feel ok doc Problems Identified/Issues Discussed: pt anxious at times. starting to feel better. improved sleep. future oriented. no c/o side effects. Medication Change: No ( ) Medical Record Reviewed: Yes Mental Status Examination - Cognitive Function Orientation: Person, Place, Situation, Time Memory: Intact Attention: WNL Concentration: WNL Association: WNL Fund of Knowledge: [facility] Decription of patient's judgement and insights: fair - Mood Mood: Anxious - Affect Affect: Constricted - Speech Speech: Appropriate - Formal Thought Process Formal Thought Process: No Impairment - Suicidal Ideation Suicidal Ideation: No - Homicidal Ideation Homicidal Ideation: No Goal/Treatment Plan - Goal/Treatment Plan Need for Continued Stay: Remain at risks for inpatient hospitalization, Severe functional impairment Progress Toward Problem(s) and Goals/Treatment Plan: polysubstance dependence bipolar disorder needs further treatment standing ativan is discontinued continue doxepin for sleep continue current medications refer to in substance abuse treatment pt can call timmy [phone] to be referred to a community reintegration program Estimated Date of D/C: 12/31/16
[2016-12-28 17:27] VITALS: O2SAT 100
--- NOTE | 2016-12-29 12:26 | PCM.PYCHPN ---
Psychiatric Progress Note - Psychiatric Progress Note Patient seen today, length of contact: discussed with team Patient Chief Complaint: i feel good Problems Identified/Issues Discussed: pt less anxious. states he is feeling better. reports improved sleep. future oriented. no c/o side effects. Medication Change: No ( ) Medical Record Reviewed: Yes Mental Status Examination - Cognitive Function Orientation: Person, Place, Situation, Time Memory: Intact Attention: WNL Concentration: WNL Association: WNL Fund of Knowledge: [facility] Decription of patient's judgement and insights: fair - Mood Mood: Anxious - Affect Affect: Constricted - Speech Speech: Appropriate - Formal Thought Process Formal Thought Process: No Impairment - Suicidal Ideation Suicidal Ideation: No - Homicidal Ideation Homicidal Ideation: No Goal/Treatment Plan - Goal/Treatment Plan Need for Continued Stay: Remain at risks for inpatient hospitalization, Severe functional impairment Progress Toward Problem(s) and Goals/Treatment Plan: polysubstance dependence bipolar disorder needs further treatment all oral ativan is discontinued continue doxepin for sleep continue other current medications refer to in substance abuse treatment pt can call timmy [phone] to be referred to a community reintegration program Estimated Date of D/C: 12/31/16
[2016-12-30 08:42] VITALS: RESP 18
--- NOTE | 2016-12-30 13:48 | PCM.PYCHPN ---
Psychiatric Progress Note - Psychiatric Progress Note Patient seen today, length of contact: discussed with team Patient Chief Complaint: i feel ready this time Problems Identified/Issues Discussed: pt less anxious. states he is ready to go to the program tomorrow. he is stating he is no longer having anxiety or panic. denies medication side effects. Medication Change: No ( ) Medical Record Reviewed: Yes Mental Status Examination - Cognitive Function Orientation: Person, Place, Situation, Time Memory: Intact Attention: WNL Concentration: WNL Association: WNL Fund of Knowledge: [facility] Decription of patient's judgement and insights: fair - Mood Mood: Anxious - Affect Affect: Constricted - Speech Speech: Appropriate - Formal Thought Process Formal Thought Process: No Impairment, Circumstantial Psychotic Thoughts and Behaviors: pt denies any a/v hallucinations - Suicidal Ideation Suicidal Ideation: No - Homicidal Ideation Homicidal Ideation: No Goal/Treatment Plan - Goal/Treatment Plan Need for Continued Stay: Remain at risks for inpatient hospitalization, Severe functional impairment Progress Toward Problem(s) and Goals/Treatment Plan: polysubstance dependence bipolar disorder continue current medications pt to transfer to [facility] tomorrow pt can call timmy [phone] to be referred to a community reintegration program Estimated Date of D/C: 12/31/16
[2016-12-31 08:26] VITALS: PULSE 70
[2016-12-31 08:42] VITALS: BP 139/96; TEMP 97.9
--- NOTE | 2016-12-31 09:33 | PCM.PYCHDC ---
Mental Status Examination - Mental Status Examination Orientation: Person, Place, Situation, Time Memory: Intact Mood: Neutral Affect: Broad Speech: Appropriate Attention: WNL Concentration: WNL Association: WNL Fund of Knowledge: WNL Formal Thought Process: No Impairment Description of patient's judgement and insight: fair Psychotic Thoughts and Behaviors: pt denies any a/v hallucinations Suicidal Ideation: No Current Homicidal Ideation?: No Plan: pt denies any suicidal or homicidal thoughts, plans or intent Discharge Summary - Discharge Note Reason for Hospitalization: pt reported depression, suicidal thoughts in context of ongoing drug use, non- adherence with treatment Psychiatric History (includes Medical, Family, Personal Hx): history of polysubstance dependence, depression; prior hospitalizations Consultations:: List each consultation separately and include: 1. Reason for request. 2. Findings. 3. Follow-up Consultations: seen by the hospitalist Summary of Hospital Course include:: 1. Description of specific treatment plan utilized for patients during their course of treatmen. 2. Summarize the time- course for resolution of acute symptoms and/or regressed behaviors. 3. Describe issues identified and worked on during hospitalization. 4. Describe medication utilized. 5. Describe medical problems identified and treated. 6. Reassessment of suicide risk Summary of Hospital Course: 46 yo male, history of depression, opioid and alcohol use. reports he stopped taking care of self after he left, started working and then again went back to using heroin and alcohol. his alcohol level was elevated. he reports that he has some passive suicidal thoughts, but really wanted to come her to get help. he is anxious, tired of his current lifestyle. he stated in the ER that he wanted to jump in the river to end his life. now he is denying this. he also reported in the er he was hearing voices, but now he is denying that. he reports his mood is down and that he has had many loses in his life that are upsetting to him. hospital course pt was admitted to [facility] and oriented to the unit. he was seen by the hospitalist. he was placed on routine safety protocols. pt was started on his previous medications and on detox meds. The ativan was tapered off, which the patient tolerated. the patient was expressing that his mood improved and his anxiety decreased. he continued to remain motivated to go to an inpatient substance abuse treatment program. he was adherent with the group treatments here and was adherent to medications. he was denying any suicidal or homicidal thoughts at the time of discharge. - Final Diagnosis (DSM 5) Condition upon Discharge: FAIR DSM 5: polysubstance dependence bipolar disorder Disposition: HOME/ ROUTINE Follow-up Treatment Plan: follow up with your treatment at the [facility] and aftercare as directed take medications as prescribed do not use alcohol, tobacco or other illicit substances call 911 if any suicidal or homicidal thoughts Prescriptions/Medication Reconciliation: Doxepin [Sinequan] 10 mg PO HS #30 cap Folic Acid 1 mg PO DAILY #30 tab Gabapentin [Neurontin] 800 mg PO QID #120 tab Nicotine 21 mg/24 hr [Nicoderm Cq] 1 patch TD DAILY #30 patch QUEtiapine [Seroquel] 100 mg PO HS #30 tab Sertraline [Zoloft] 100 mg PO DAILY #30 tab Thiamine [Vitamin B1 Tab] 100 mg PO DAILY #30 tab - Smoking Cessation Smoking Cessation Medication prescribed: Yes - Antipsychotic Medications Pt discharged on 2 or more routine antipsychotic medications: No
== END 2016-12-31 08:54 | disposition home or self-care (01) | DRG 430 ==
LOC: H.ER 09:58 → H.EROBSV 11:22 → OBSVTOIN 15:41 → H.ERHOLD 16:04 → H.PSYCH 17:30
PROVIDERS: ADMIT Psychiatry & Neurology Psychiatry; ATTEND Psychiatry & Neurology Psychiatry
PROC: GZHZZZZ Group Psychotherapy (ICD-10-PCS; principal; 2016-12-25)
PROC: HZ32ZZZ Individual Counseling for Substance Abuse Treatment, Cognitive-Behavioral (ICD-10-PCS; 2016-12-25)
DX: F31.9 Bipolar disorder, unspecified (principal); F11.20 Opioid dependence, uncomplicated; R45.851 Suicidal ideations; F13.20 Sedative, hypnotic or anxiolytic dependence, uncomplicated; F19.10 Other psychoactive substance abuse, uncomplicated; F20.9 Schizophrenia, unspecified; Y90.8 Blood alcohol level of 240 mg/100 ml or more; D17.1 Benign lipomatous neoplasm of skin and subcutaneous tissue of trunk; F10.20 Alcohol dependence, uncomplicated; F17.200 Nicotine dependence, unspecified, uncomplicated; F41.9 Anxiety disorder, unspecified; Z80.3 Family history of malignant neoplasm of breast; R03.0 Elevated blood-pressure reading, without diagnosis of hypertension; R25.1 Tremor, unspecified; Z91.14 Patient's other noncompliance with medication regimen; Z91.012 Allergy to eggs; Z88.0 Allergy status to penicillin; Z91.013 Allergy to seafood

== ENCOUNTER 2016-12-31 12:41 | Inpatient (IN) | payer MEDICAID, OTHER ==
[2016-12-31 12:41] VITALS: BMI 28.2
--- NOTE | 2016-12-31 13:06 | ED PDOC ---
HPI: Psych/Substance Abuse Time Seen by Provider: 12/31/16 12:52 Chief Complaint (Nursing): Psychiatric Evaluation Chief Complaint (Provider): Psychiatric Evaluation History Per: Patient History/Exam Limitations: no limitations Onset/Duration Of Symptoms: Hrs Current Symptoms Are (Timing): Still Present Additional Complaint(s): 46 y/o male presents to the emergency department with a complaint of suicidal ideation. Patient was discharged from [facility] psych department this morning and was told there would be bed arrangements for him at [facility]. When patient arrived at [facility], there were no beds available for him. He reports he now feels suicidal because of his current situation. Patient states he had beer and vodka prior to his arrival to ED this afternoon. PMD: None Past Medical History Reviewed: Historical Data, Nursing Documentation, Vital Signs Vital Signs: Last Vital Signs Temp 98.4 F 12/31/16 12:49 Pulse 111 H 12/31/16 12:49 Resp 18 12/31/16 12:49 BP 116/74 12/31/16 12:49 Pulse Ox 98 12/31/16 12:49 - Medical History PMH: Anxiety, Bipolar Disorder, Depression, Schizophrenia - Surgical History Surgical History: No Surg Hx - Family History Family History: States: No Known Family Hx - Living Arrangements Living Arrangements: Other (non-domiciled currently) - Social History Current smoker - smoking cessation education provided: Yes Alcohol: Social Drugs: Denies - Home Medications Home Medications: Ambulatory Orders Medication Instructions Recorded Doxepin [Sinequan] 10 mg PO HS #30 cap 12/30/16 Folic Acid 1 mg PO DAILY #30 tab 12/30/16 Gabapentin [Neurontin] 800 mg PO QID #120 tab 12/30/16 Nicotine 21 mg/24 hr [Nicoderm Cq] 1 patch TD DAILY #30 patch 12/30/16 QUEtiapine [Seroquel] 100 mg PO HS #30 tab 12/30/16 Sertraline [Zoloft] 100 mg PO DAILY #30 tab 12/30/16 Thiamine [Vitamin B1 Tab] 100 mg PO DAILY #30 tab 12/30/16 - Allergies Allergies/Adverse Reactions: Allergies Allergy/AdvReac Type Severity Reaction Status Date / Time FISH Allergy Severe RASH Verified 12/31/16 12:48 EGG Allergy RASH Verified 12/31/16 12:48 Penicillins Allergy RASH Verified 12/31/16 12:48 Review of Systems ROS Statement: Except As Marked, All Systems Reviewed And Found Negative Constitutional: Negative for: Fever Cardiovascular: Negative for: Chest Pain Respiratory: Negative for: Cough Gastrointestinal: Negative for: Nausea, Vomiting Psych: Positive for: Suicidal ideation, Other (etoh) Physical Exam - Reviewed Nursing Documentation Reviewed: Yes Vital Signs Reviewed: Yes - Physical Exam Appears: Positive for: Well, Non-toxic, No Acute Distress Head Exam: Positive for: ATRAUMATIC, NORMAL INSPECTION, NORMOCEPHALIC Skin: Positive for: Normal Color. Negative for: Rash Eye Exam: Positive for: Normal appearance Neck: Positive for: Normal Cardiovascular/Chest: Positive for: Regular Rate, Rhythm. Negative for: Murmur Respiratory: Positive for: Normal Breath Sounds. Negative for: Accessory Muscle Use, Respiratory Distress Gastrointestinal/Abdominal: Positive for: Normal Exam, Soft. Negative for: Tenderness Extremity: Positive for: Normal ROM. Negative for: Pedal Edema Neurologic/Psych: Positive for: Alert, Oriented - Laboratory Results Result Diagrams: 12/31/16 13:00 12/31/16 13:00 - ECG Interpretation Of ECG: Normal sinus rhythm 70 bpm, no acute findings, reviewed by PA and ED attending. O2 Sat by Pulse Oximetry: 98 (RA) Pulse Ox Interpretation: Normal - Other Rad Bedside chest X-Ray: Interpreted by Me, Viewed By Me X-Ray Interpretation: large hiatal hernia, no acute finding, no interval change Medical Decision Making Medical Decision Making: Time: 12:52 Initial Impression: 46 year old with suicidal ideation Initial Plan: --Crisis evaluation --CBC --CMP --BAL --UDS --UA --1:1 Obs for Suicide Precaution --Admit to hospital routine on ED Observation for suicidal ideation and ETOH Intoxication. Scribe Attestation: Documented by Zeynep Santos, acting as a scribe for Isabel Kowalski PA-C. Provider Scribe Attestation: All medical record entries made by the Scribe were at my direction and personally dictated by me. I have reviewed the chart and agree that the record accurately reflects my personal performance of the history, physical exam, medical decision making, and the department course for this patient. I have also personally directed, reviewed, and agree with the discharge instructions and disposition. ED OBSERVATION Date of observation admission: 12/31/16 Time of observation admission: 13:13 - Observation admission statement Patient is being placed in observation because:: ETOH intoxication, suicidal ideation, pending sobriety and crisis eval - Goals of Observation Goals of observation are:: Monitor patient under 1:1 bedside observation for suicidal prevention, monitor vital signs and airway while intoxicated, pending crisis eval - Progress Note Progress Note: Time: 13:45 --Alcohol, Quantitative: 164 12/31/16 15:17 Patient is resting comfortably, vital signs are stable, no airway compromise. Crisis disposition is still pending. Will continue to monitor patient. 12/31/16 16:06 As per crisis counselor and psychiatrist on-call, Dr. Nieto, patient does meet criteria for admission. Patient agrees to stay. Patient is medically stable for psychiatric admission. Disposition - Clinical Impression Clinical Impression: Bipolar disorder - Patient ED Disposition Is Patient to be Admitted: Yes - Disposition Disposition Time: 16:07 Condition: FAIR - Pt Status Changed To: Hospital Disposition Of: Inpatient - Admit Certification Admit to Inpatient:: After my assessment, the patient will require hospitalization for at least two midnights. This is because of the severity of symptoms shown, intensity of services needed, and/or the medical risk in this patient being treated as an outpatient. - POA Present On Arrival: None Results - Lab Results Lab Results: 12/31/16 12/31/16 13:00 13:00 WBC 10.1 D RBC 4.41 Hgb 14.4 Hct 42.2 MCV 95.6 H MCH 32.6 H MCHC 34.1 RDW 13.5 Plt Count 278 MPV 7.5 Neut % (Auto) 72.9 Lymph % (Auto) 18.2 L Emery % (Auto) 7.4 Eos % (Auto) 1.1 Baso % (Auto) 0.4 Neut # 7.4 H Lymph # 1.8 Emery # 0.7 Eos # 0.1 Baso # 0.0 Sodium 139 Potassium 4.2 Chloride 104 Carbon Dioxide 23 Anion Gap 16 BUN 13 Creatinine 1.0 Est GFR ( Amer) > 60 Est GFR (Non-Af Amer) > 60 Random Glucose 69 L Calcium 8.7 Total Bilirubin 0.2 AST 22 ALT 33 Alkaline Phosphatase 88 Total Protein 6.6 Albumin 4.1 Globulin 2.5 Albumin/Globulin Ratio 1.7 Alcohol, Quantitative 164 H
[2016-12-31 13:26] LABS: BASO % 0.4 % (0.0-2.0); EOS # 0.1 K/uL (0.0-0.7); EOS % 1.1 % (0.0-4.0); HEMATOCRIT 42.2 % (35.0-51.0); LYMPH # 1.8 K/uL (1.0-4.3); LYMPH % 18.2 % (20.0-40.0); MEAN CELL VOLUME 95.6 fl (80.0-94.0); MEAN CORPUSCULAR HEMOGLOBIN 32.6 pg (27.0-31.0); MEAN CORPUSCULAR HGB CONC 34.1 g/dL (33.0-37.0); MEAN PLATELET VOLUME 7.5 fl (7.2-11.7); MONO # 0.7 K/uL (0.0-0.8); MONO % 7.4 % (0.0-10.0); NEUT # 7.4 K/uL (1.8-7.0); NEUT % 72.9 % (50.0-75.0); RED CELL DISTRIBUTION WIDTH 13.5 % (11.5-14.5); WHITE BLOOD COUNT 10.1 K/uL (4.8-10.8)
[2016-12-31 13:33] LABS: ALB/GLOB RATIO 1.7 (1.0-2.1); ALCOHOL SERUM 164 mg/dl (0-10); ALKALINE PHOSPHATASE 88 U/L (38-126); ALT/SGPT 33 U/L (21-72); AST/SGOT 22 U/L (17-59); BILIRUBIN,TOTAL 0.2 mg/dl (0.2-1.3); BLOOD UREA NITROGEN 13 mg/dl (9-20); CALCIUM 8.7 mg/dL (8.4-10.2); CARBON DIOXIDE 23 mmol/L (22-30); CHLORIDE 104 mmol/L (98-107); GFR AFRICAN-AMERICAN > 60; GLUCOSE,RANDOM 69 mg/dL (75-110); POTASSIUM 4.2 MMOL/L (3.6-5.0); SODIUM 139 mmol/l (132-148); TOTAL PROTEIN 6.6 G/DL (6.3-8.2)
[2016-12-31 14:49] LABS: RBC URINE 2 /hpf (0-3); URINE BILIRUBIN NEGATIVE (NEGATIVE); URINE BLOOD NEGATIVE (NEGATIVE); URINE COLOR YELLOW (YELLOW); URINE GLUCOSE (UA) NEG (Normal); URINE KETONE NEGATIVE (NEGATIVE); URINE LEUKOCYTE ESTERASE NEG Leu/uL (Negative); URINE PROTEIN NEGATIVE (NEGATIVE); URINE UROBILINOGEN 0.2-1.0 mg/dL (0.2-1.0); WBC URINE < 1 /hpf (0-5)
--- NOTE | 2016-12-31 17:22 | RAD ---
HISTORY: admit COMPARISON: Chest x-ray performed 12/23/16 and 11/24/16 TECHNIQUE: Chest, one view. FINDINGS: Examination limited by habitus, hypoinflation, and patient obliquity. The patient's chin obscures evaluation of the lung apices. LUNGS: Mild left basilar atelectasis. Please note that chest x-ray has limited sensitivity for the detection of pulmonary masses. PLEURA: No significant pleural effusion identified. No definite pneumothorax . CARDIOVASCULAR: Partially obscured, grossly unremarkable. OSSEOUS STRUCTURES: No acute osseous abnormality identified. VISUALIZED UPPER ABDOMEN: Elevation of the left hemidiaphragm. Large hiatal hernia. OTHER FINDINGS: None. IMPRESSION: Large hiatal hernia. Elevation of the left hemidiaphragm. Mild left basilar atelectasis.
[2016-12-31 17:51] VITALS: O2SAT 99
[2016-12-31] MEDS ORDERED: Magnesium Hydroxide Susp 30 ml UD PO PRN (18:34)
[2016-12-31] MEDS ORDERED: DiphenhydrAMINE 50 mg/ml Inj IM PRN (18:34)
[2016-12-31] MEDS ORDERED: Alum-Mag Hydrox-Simethicone Susp (30 mL) PO PRN (18:34)
--- NOTE | 2016-12-31 19:37 | CP.PCM.CON ---
History of Present Illness - History of Present Illness History of Present Illness: 46 yo male with history of depression and alcohol and opioid abuse admitted on to psyche unit because of passive suicidal thoughts and discharged earlier this morning brought back in less than 4 hrs for admission in psyche unit because of similar issue with suicidal thoughts. Review of Systems - Review of Systems All systems: reviewed and no additional remarkable complaints except (aside from those mentioned above, 12 point system review were negative by me) Past Patient History - Infectious Disease Hx of Infectious Diseases: None - Past Medical History & Family History Past Medical History?: No - Past Social History Smoking Status: Heavy Smoker > 10 Cigarettes Daily Chewing Tobacco Use: No Cigar Use: No Alcohol: > 2 Drinks/Day Drugs: Opiates - CARDIAC Hx Hypertension: No - PULMONARY Hx Tuberculosis: No - NEUROLOGICAL Hx Seizures: No - HEENT Hx HEENT Problems: No - RENAL Hx Chronic Kidney Disease: No - ENDOCRINE/METABOLIC Hx Endocrine Disorders: No - HEMATOLOGICAL/ONCOLOGICAL Hx Human Immunodeficiency Virus (HIV): Yes (Not proved by lab work.) - INTEGUMENTARY Hx Dermatological Problems: No - MUSCULOSKELETAL/RHEUMATOLOGICAL Hx Falls: No - GASTROINTESTINAL Hx Gastrointestinal Disorders: No - GENITOURINARY/GYNECOLOGICAL Hx Sexually Transmitted Disorders: No - PSYCHIATRIC Hx Depression: Yes Hx Physical Abuse: No Hx Sexual Abuse: No Hx Substance Use: Yes (age 29, heroin, snorting and IV) - SURGICAL HISTORY Hx Surgeries: Yes Hx Orthopedic Surgery: Yes (14 yrs ago rt ankle) - ANESTHESIA Hx Anesthesia: Yes Hx Anesthesia Reactions: No Hx Malignant Hyperthermia: No Meds Allergies/Adverse Reactions: Allergies Allergy/AdvReac Type Severity Reaction Status Date / Time FISH Allergy Severe RASH Verified 12/31/16 12:48 EGG Allergy RASH Verified 12/31/16 12:48 Penicillins Allergy RASH Verified 12/31/16 12:48 - Medications Medications: Current Medications Acetaminophen (Tylenol 325mg Tab) 650 mg PO Q4 PRN PRN Reason: For pain level 1 - 8 Al Hydrox/Mg Hydrox/Simethicone (Maalox Plus 30 Ml) 30 ml PO Q4 PRN PRN Reason: Dyspepsia Diphenhydramine HCl (Benadryl) 50 mg IM Q6 PRN PRN Reason: Extrapyramidal S/S Unable PO Diphenhydramine HCl (Benadryl) 50 mg PO Q6 PRN PRN Reason: Extrapyramidal Symptoms Haloperidol (Haldol) 5 mg PO Q4 PRN PRN Reason: Agitation Haloperidol Lactate (Haldol) 5 mg IM Q4 PRN PRN Reason: Agitation, Unable to Take PO Lorazepam (Ativan) 2 mg IM Q4 PRN PRN Reason: Anxiety/Agitation,Unable PO Lorazepam (Ativan) 2 mg PO Q4 PRN PRN Reason: Anxiety/Agitation Magnesium Hydroxide (Milk Of Magnesia) 30 ml PO HS PRN PRN Reason: Constipation Physical Exam - Constitutional Appears: No Acute Distress - Head Exam Head Exam: ATRAUMATIC - Eye Exam Eye Exam: absent: Scleral icterus - ENT Exam ENT Exam: Mucous Membranes Moist - Neck Exam Neck exam: Negative for: Meningismus - Respiratory Exam Respiratory Exam: absent: Rhonchi, Wheezes, Respiratory Distress - Cardiovascular Exam Cardiovascular Exam: REGULAR RHYTHM, +S1, +S2 - GI/Abdominal Exam GI & Abdominal Exam: Soft. absent: Tenderness - Rectal Exam Rectal Exam: Deferred - Back Exam Back exam: NORMAL INSPECTION - Neurological Exam Neurological exam: Alert, Oriented x3 - Psychiatric Exam Psychiatric exam: Normal Affect - Skin Skin Exam: Dry, Intact Results - Vital Signs Recent Vital Signs: Last Vital Signs Temp 98.0 F 12/31/16 17:24 Pulse 88 12/31/16 17:24 Resp 18 12/31/16 18:27 BP 138/78 12/31/16 17:24 Pulse Ox 99 12/31/16 17:24 - Labs Result Diagrams: 12/31/16 13:00 12/31/16 13:00 Assessment & Plan (1) Suicidal ideation Status: Acute Comment: psyche is managing (2) Polysubstance abuse Status: Acute Comment: psyche is managing
--- NOTE | 2017-01-01 12:06 | PCM.PSYCH ---
Initial Psychiatric Evaluation - Initial Psychiatric Evaluation Type of Admission: Voluntary Legal Status: Capacity Chief Complaint (in patient's own words): i just can't believe what happened Patient's Reaction to Hospitalization: intoxication, passive suicidal thoughts History of Present Illness and Precipitating Events: pt discharged yesterday from the hospital yesterday- was sent to [facility] who rejected pt's admission there and turned pt away. pt was sent back on the streets and was hopeless. apparently went to an aunts house and dropped off his medications. he resumed drinking. he returned to the ER stating he felt suicidal. he reported he would kill himself as he was so distraught about not being able to remain sober. he was denying any auditory/visual hallucinations. Current Medications: Active Medications Generic Name Dose Route Start Last Admin Trade Name Freq PRN Reason Stop Dose Admin Acetaminophen 650 mg 12/31/16 18:34 Tylenol 325mg Tab PO Q4 PRN For pain level 1 - 8 Al Hydrox/Mg Hydrox/Simethicone 30 ml 12/31/16 18:34 Maalox Plus 30 Ml PO Q4 PRN Dyspepsia Diphenhydramine HCl 50 mg 12/31/16 18:34 Benadryl IM Q6 PRN Extrapyramidal S/S Unable PO Diphenhydramine HCl 50 mg 12/31/16 18:34 Benadryl PO Q6 PRN Extrapyramidal Symptoms Diphenhydramine HCl 50 mg 12/31/16 21:18 12/31/16 21:29 Benadryl PO 50 mg HS PRN Administration Sleep Doxepin HCl 10 mg 01/01/17 22:00 Sinequan PO HS IDALIA Folic Acid 1 mg 01/01/17 10:00 Folic Acid PO DAILY IDALIA Gabapentin 800 mg 01/01/17 13:00 Neurontin PO QID IDALIA Haloperidol 5 mg 12/31/16 18:34 Haldol PO Q4 PRN Agitation Haloperidol Lactate 5 mg 12/31/16 18:34 Haldol IM Q4 PRN Agitation, Unable to Take PO Lorazepam 2 mg 12/31/16 18:34 Ativan IM Q4 PRN Anxiety/Agitation,Unable PO Lorazepam 2 mg 12/31/16 18:34 01/01/17 08:30 Ativan PO 2 mg Q4 PRN Administration Anxiety/Agitation Magnesium Hydroxide 30 ml 12/31/16 18:34 Milk Of Magnesia PO HS PRN Constipation Nicotine 1 patch 01/01/17 10:00 Nicoderm Cq TD DAILY [facility] Quetiapine Fumarate 100 mg 01/01/17 22:00 Seroquel PO HS IDALIA Sertraline HCl 100 mg 01/01/17 10:00 Zoloft PO DAILY IDALIA Thiamine HCl 100 mg 01/01/17 10:00 Vitamin B1 Tab PO DAILY [facility] Past Psychiatric History - Past Psychiatric History Previous Treatment History: Inpatient Prior Professional Help: multiple hospitalizations [facility]: [facility] Date: 12/31/16 History of Abuse: denies History of ETOH/Drug Use: history of polysubstance dependence. smokes cigarettes History of Family Illness: fh of substance abuse Pertinent Medical Hx (Current Medical&Sleep Prob, Allergies): Allergies Allergy/AdvReac Type Severity Reaction Status Date / Time FISH Allergy Severe RASH Verified 12/31/16 12:48 EGG Allergy RASH Verified 12/31/16 12:48 Penicillins Allergy RASH Verified 12/31/16 12:48 Doxepin [Sinequan] 10 mg PO HS #30 cap 12/30/16 Folic Acid 1 mg PO DAILY #30 tab 12/30/16 Gabapentin [Neurontin] 800 mg PO QID #120 tab 12/30/16 Nicotine 21 mg/24 hr [Nicoderm Cq] 1 patch TD DAILY #30 patch 12/30/16 QUEtiapine [Seroquel] 100 mg PO HS #30 tab 12/30/16 Sertraline [Zoloft] 100 mg PO DAILY #30 tab 12/30/16 Thiamine [Vitamin B1 Tab] 100 mg PO DAILY #30 tab 12/30/16 Review of Systems - Psychiatric Psychiatric: As Per [facility] Mental Status Examination - Personal Presentation Personal Presentation: Looks stated age - Affect Affect: Depressed - Motor Activity Motor Activity: Calm - Reliability in Providing Information Reliability in Providing Information: Good - Speech Speech: Organized - Mood Mood: Depressed - Formal Thought Process Formal Thought Process: No Impairment - Obsessions/Compulsions Obsessions: No Compulsions: No - Cognitive Functions Orientation: Person, Place, Situation, Time Sensorium: Alert Attention/Concentration: Attentive Abstract Thinking: [place] Estimate of Intelligence: Average Judgement: Intact, as evidence by: Insight regarding need for hospitalization Memory: Recent intact, as evidence by: Ability to recall events of the day, Remote intact, as evidenced by: Abilit to recall sig. life events - Risk Risk: Suicidal (denies current plan) - Strength & Assets Inventory Strength & Assets Inventory: Intelligence DSM 5 DX - DSM 5 DSM 5 Diagnosis: polysubstance dependence major depression, moderate - Recommended/Plan of Treatment Treatment Recommendations and Plan of Treatment: admit to [facility] for safety an observation gather collateral information provide supportive therapy adjust medications- restart previous meds hospitalist consult disposition planning Projected ELOS: 3-5 days - Smoking Cessation Smoking Cessation Initiated: Yes
--- NOTE | 2017-01-01 13:24 | CARD ---
APPROVED REPORT EKG Measurement Heart [id number] <Conclusion> Normal sinus rhythm Normal ECG
--- NOTE | 2017-01-02 14:32 | PCM.PYCHPN ---
Psychiatric Progress Note - Psychiatric Progress Note Patient seen today, length of contact: in treatment team Patient Chief Complaint: i feel much better now Problems Identified/Issues Discussed: pt reports being hopeful about going to rehab next week. he states his aunt will drop off his medications to unit. he is denying any suicidal or homicidal thoughts currently Medication Change: No Medical Record Reviewed: Yes Mental Status Examination - Cognitive Function Orientation: Person, Place, Situation, Time Memory: Intact Attention: WNL Concentration: WNL Association: WNL Fund of Knowledge: [facility] Decription of patient's judgement and insights: fair - Mood Mood: Depressed - Affect Affect: Depressed - Speech Speech: Appropriate - Formal Thought Process Formal Thought Process: No Impairment Psychotic Thoughts and Behaviors: denies any a/v hallucinations - Suicidal Ideation Suicidal Ideation: No - Homicidal Ideation Homicidal Ideation: No Goal/Treatment Plan - Goal/Treatment Plan Need for Continued Stay: Remain at risks for inpatient hospitalization Progress Toward Problem(s) and Goals/Treatment Plan: alcohol dependence major depression recurrent continue current medications dc to matt next week dc all ativan Estimated Date of D/C: 01/06/17 - Smoking Cessation Smoking Cessation Initiated: Yes
--- NOTE | 2017-01-04 10:26 | PCM.PYCHPN ---
Psychiatric Progress Note - Psychiatric Progress Note Patient seen today, length of contact: chart reviewed case discussed with team Patient Chief Complaint: late note for [id number] change in mood Problems Identified/Issues Discussed: feeling sad, was using substances, pending rehab placement. sleeping and eating fair. taking medications without notable side effects, staff pt was rx adherent. Medical Problems: per chart Diagnostic Results: per medicine per psychiatry per nursing per social work Medication Change: No Medical Record Reviewed: Yes Mental Status Examination - Cognitive Function Orientation: Person, Place, Situation, Time Memory: Intact Attention: WNL Concentration: WNL Association: WNL Fund of Knowledge: [facility] Decription of patient's judgement and insights: impaired - Mood Mood: Depressed - Affect Affect: Depressed - Speech Speech: Appropriate - Formal Thought Process Formal Thought Process: No Impairment - Homicidal Ideation Homicidal Ideation: No Goal/Treatment Plan - Goal/Treatment Plan Need for Continued Stay: Remain at risks for inpatient hospitalization, Severe depression anxiety Progress Toward Problem(s) and Goals/Treatment Plan: inpt milieu vital signs and clinical observation per protocol and per status adjust meds per status discharge planning in progress Estimated Date of D/C: 01/06/17 - Smoking Cessation Smoking Cessation Initiated: No Reason for not providing: deferred
--- NOTE | 2017-01-04 17:34 | PCM.PYCHPN ---
Psychiatric Progress Note - Psychiatric Progress Note Patient seen today, length of contact: chart reviewed case discussed with team Patient Chief Complaint: change in mood Problems Identified/Issues Discussed: feeling sad, was using substances, pending rehab placement. sleeping and eating fair. taking medications without notable side effects, staff pt was rx adherent. Medical Problems: per chart Diagnostic Results: per medicine per psychiatry per nursing per social work DSM 5 Symptoms Update: alteration in mood, coping Medication Change: No Medical Record Reviewed: Yes Mental Status Examination - Cognitive Function Orientation: Person, Place, Situation, Time Memory: Intact Attention: WNL Concentration: WNL Association: WNL Fund of Knowledge: [facility] Decription of patient's judgement and insights: impaired - Mood Mood: Depressed - Affect Affect: Depressed - Speech Speech: Appropriate - Formal Thought Process Formal Thought Process: No Impairment - Suicidal Ideation Suicidal Ideation: No - Homicidal Ideation Homicidal Ideation: No Goal/Treatment Plan - Goal/Treatment Plan Need for Continued Stay: Remain at risks for inpatient hospitalization, Severe depression anxiety Progress Toward Problem(s) and Goals/Treatment Plan: inpt milieu vital signs and clinical observation per protocol and per status adjust meds per status discharge planning in progress Estimated Date of D/C: 01/06/17 - Smoking Cessation Smoking Cessation Initiated: No Reason for not providing: deferred
--- NOTE | 2017-01-05 12:32 | PCM.PYCHPN ---
Psychiatric Progress Note - Psychiatric Progress Note Patient seen today, length of contact: discussed with team Patient Chief Complaint: i feel ready Problems Identified/Issues Discussed: pt hopeful about succeeding in his program. he is participating in treatment here. no psychotic symptoms. no aggression. mood / behavior are stable. Medication Change: No Medical Record Reviewed: Yes Mental Status Examination - Cognitive Function Orientation: Person, Place, Situation, Time Memory: Intact Attention: WNL Concentration: WNL Association: [facility] Fund of Knowledge: [facility] Decription of patient's judgement and insights: fair - Mood Mood: Depressed - Affect Affect: Depressed - Speech Speech: Appropriate - Formal Thought Process Formal Thought Process: No Impairment - Suicidal Ideation Suicidal Ideation: No - Homicidal Ideation Homicidal Ideation: No Goal/Treatment Plan - Goal/Treatment Plan Need for Continued Stay: Remain at risks for inpatient hospitalization, Severe depression anxiety Progress Toward Problem(s) and Goals/Treatment Plan: alcohol dependence major depression recurrent continue current medications dc to matt tomorrow Estimated Date of D/C: 01/06/17
[2017-01-06 09:05] VITALS: BP 139/109; PULSE 77; RESP 18; TEMP 97.2
--- NOTE | 2017-01-06 13:07 | PCM.PYCHDC ---
Mental Status Examination - Mental Status Examination Orientation: Person, Place, Situation, Time Memory: Intact Mood: Anxious Affect: Broad Speech: Appropriate Attention: WNL Concentration: WNL Association: WNL Fund of Knowledge: WNL Formal Thought Process: No Impairment Description of patient's judgement and insight: fair Psychotic Thoughts and Behaviors: denies any a/v hallucinations Suicidal Ideation: No Current Homicidal Ideation?: No Plan: denies any suicidal or homicidal thoughts Discharge Summary - Discharge Note Reason for Hospitalization: intoxication, passive suicidal thoughts Psychiatric History (includes Medical, Family, Personal Hx): recently on inpt unit at [facility]. history of polysubstance dependence, deprss Consultations:: List each consultation separately and include: 1. Reason for request. 2. Findings. 3. Follow-up Consultations: seen by the hospitalist Summary of Hospital Course include:: 1. Description of specific treatment plan utilized for patients during their course of treatmen. 2. Summarize the time- course for resolution of acute symptoms and/or regressed behaviors. 3. Describe issues identified and worked on during hospitalization. 4. Describe medication utilized. 5. Describe medical problems identified and treated. 6. Reassessment of suicide risk Summary of Hospital Course: pt discharged yesterday from the hospital yesterday- was sent to [facility] who rejected pt's admission there and turned pt away. pt was sent back on the streets and was hopeless. apparently went to an aunts house and dropped off his medications. he resumed drinking. he returned to the ER stating he felt suicidal. he reported he would kill himself as he was so distraught about not being able to remain sober. he was denying any auditory/visual hallucinations. pt was admitted to [facility] and oriented to the unit. pt was seen by the hospitalist. previous medications were started. he was referred to inpt rehab and accepted matt and transfered to that facility. at the time of transfer he was denying any suicidal or homicidal thoughts/plans or intent. - Final Diagnosis (DSM 5) Condition upon Discharge: FAIR DSM 5: polysubstance dependence major depression recurrent Disposition: HOME/ ROUTINE Follow-up Treatment Plan: follow up with aftercare as directed take medications as prescribed do not use alcohol, tobacco or other illicit substances call 911 if any suicidal or homicidal thoughts - Smoking Cessation Smoking Cessation Medication prescribed: No Reason for not providing: declined - Antipsychotic Medications Pt discharged on 2 or more routine antipsychotic medications: No
== END 2017-01-06 09:29 | disposition home or self-care (01) | DRG 430 ==
LOC: H.ER 12:41 → H.EROBSV 13:08 → OBSVTOIN 16:56 → H.ERHOLD 17:05 → H.PSYCH 18:17
PROVIDERS: ADMIT Psychiatry & Neurology Psychiatry; ATTEND Psychiatry & Neurology Psychiatry
PROC: GZ51ZZZ Individual Psychotherapy, Behavioral (ICD-10-PCS; principal; 2016-12-31)
DX: F33.2 Major depressive disorder, recurrent severe without psychotic features (principal); F20.9 Schizophrenia, unspecified; R45.851 Suicidal ideations; F11.10 Opioid abuse, uncomplicated; F10.20 Alcohol dependence, uncomplicated; F32.1 Major depressive disorder, single episode, moderate; F17.200 Nicotine dependence, unspecified, uncomplicated; F41.9 Anxiety disorder, unspecified; F31.9 Bipolar disorder, unspecified; F19.10 Other psychoactive substance abuse, uncomplicated; F17.210 Nicotine dependence, cigarettes, uncomplicated; Z91.012 Allergy to eggs; Z88.0 Allergy status to penicillin; Z91.013 Allergy to seafood; Z59.0 Homelessness

== ENCOUNTER 2017-01-16 19:19 | Inpatient (IN) | payer MEDICAID, OTHER ==
[2017-01-16 20:29] LABS: BASO # 0.1 K/uL (0.0-0.2); BASO % 1.1 % (0.0-2.0); EOS # 0.2 K/uL (0.0-0.7); EOS % 2.1 % (0.0-4.0); HEMOGLOBIN 13.6 g/dL (12.0-18.0); LYMPH # 2.5 K/uL (1.0-4.3); LYMPH % 31.9 % (20.0-40.0); MEAN CELL VOLUME 94.9 fl (80.0-94.0); MEAN CORPUSCULAR HGB CONC 33.7 g/dL (33.0-37.0); MEAN PLATELET VOLUME 7.1 fl (7.2-11.7); MONO # 0.5 K/uL (0.0-0.8); MONO % 6.9 % (0.0-10.0); NEUT # 4.5 K/uL (1.8-7.0); NRBC % 0.1 % (0.0-0.0); RBC 4.26 Mil/uL (4.40-5.90); RED CELL DISTRIBUTION WIDTH 12.8 % (11.5-14.5); WHITE BLOOD COUNT 7.8 K/uL (4.8-10.8)
[2017-01-16 20:43] LABS: BLOOD UREA NITROGEN 14 mg/dl (9-20); GFR AFRICAN-AMERICAN > 60; GFR NON-AFRICAN AMERICAN > 60
[2017-01-16 20:44] LABS: SALICYLATE < 1.0 mg/dl
[2017-01-16 20:48] LABS: ACETAMINOPHEN < 10.0 ug/ml (10.0-30.0)
[2017-01-16 20:56] LABS: URINE BILIRUBIN NEGATIVE (NEGATIVE); URINE BLOOD NEGATIVE (NEGATIVE); URINE CLARITY CLEAR (Clear); URINE COLOR YELLOW (YELLOW); URINE GLUCOSE (UA) NEG (Normal); URINE LEUKOCYTE ESTERASE NEG Leu/uL (Negative); URINE NITRATE NEGATIVE (NEGATIVE); URINE PROTEIN NEGATIVE (NEGATIVE); URINE UROBILINOGEN 0.2-1.0 mg/dL (0.2-1.0)
--- NOTE | 2017-01-16 21:11 | ED PDOC ---
HPI: Psych/Substance Abuse Time Seen by Provider: 01/16/17 19:40 Chief Complaint (Nursing): Psychiatric Evaluation Chief Complaint (Provider): Psychiatric Evaluation ED Caveat: Intoxicated History/Exam Limitations: intoxication Onset/Duration Of Symptoms: Days (x2 weeks) Current Symptoms Are (Timing): Still Present Additional Complaint(s): 46 y/o male with a past medical history of depression who presents to the emergency department with a complaint of feeling suicidal and wants to jump into the river. Reports he stopped taking his medications about 2 weeks ago. Admits drinking and taking heroin today. Denies any further medical complaints. Past Medical History Reviewed: Historical Data, Nursing Documentation, Vital Signs Vital Signs: Last Vital Signs Temp 98.6 F 01/16/17 19:22 Pulse 117 H 01/16/17 19:22 Resp 18 01/16/17 19:22 BP Pulse Ox 96 01/16/17 19:22 - Medical History PMH: Anxiety, Bipolar Disorder, Depression, HIV (Not proved by lab work.), Schizophrenia Denies: Diabetes, Hepatitis, HTN, Chronic Kidney Disease, Seizures, Sexually Transmitted Disease - Family History Family History: States: Unknown Family Hx - Immunization History Hx Tetanus Toxoid Vaccination: Yes Hx Influenza Vaccination: No Hx Pneumococcal Vaccination: No - Home Medications Home Medications: Ambulatory Orders Medication Instructions Recorded Doxepin [Sinequan] 10 mg PO HS #30 cap 12/30/16 Folic Acid 1 mg PO DAILY #30 tab 12/30/16 Gabapentin [Neurontin] 800 mg PO QID #120 tab 12/30/16 Nicotine 21 mg/24 hr [Nicoderm Cq] 1 patch TD DAILY #30 patch 12/30/16 QUEtiapine [Seroquel] 100 mg PO HS #30 tab 12/30/16 Thiamine [Vitamin B1 Tab] 100 mg PO DAILY #30 tab 12/30/16 ARIPiprazole [Abilify] 10 mg PO HS #30 tab 01/12/17 Mirtazapine [Remeron] 30 mg PO HS #30 tab 01/12/17 Sertraline [Zoloft] 100 mg PO DAILY #30 tab 01/12/17 - Allergies Allergies/Adverse Reactions: Allergies Allergy/AdvReac Type Severity Reaction Status Date / Time FISH Allergy Severe RASH Verified 01/16/17 19:21 EGG Allergy RASH Verified 01/16/17 19:21 haloperidol [From Haldol] Allergy SHORTNESS Verified 01/16/17 19:22 OF BREATH Penicillins Allergy RASH Verified 01/16/17 19:21 Review of Systems Review Of Systems: ROS cannot be obtained secondary to pt's inabilty to answer questions. Physical Exam - Reviewed Nursing Documentation Reviewed: Yes Vital Signs Reviewed: Yes - Physical Exam Appears: Positive for: Non-toxic, No Acute Distress Head Exam: Positive for: ATRAUMATIC, NORMAL INSPECTION, NORMOCEPHALIC Skin: Positive for: Normal Color, Warm, Dry Neck: Positive for: Normal, Supple Cardiovascular/Chest: Positive for: Regular Rate, Rhythm. Negative for: Murmur Respiratory: Positive for: Normal Breath Sounds. Negative for: Accessory Muscle Use, Respiratory Distress Gastrointestinal/Abdominal: Positive for: Normal Exam, Soft. Negative for: Tenderness Extremity: Positive for: Normal ROM. Negative for: Pedal Edema Neurologic/Psych: Positive for: Alert, Other (Intoxicated appearing with slurred speech. Disheveled with foul odor. ) - Laboratory Results Result Diagrams: 01/16/17 20:20 01/16/17 20:20 - ECG O2 Sat by Pulse Oximetry: 96 (RA) Pulse Ox Interpretation: Normal Medical Decision Making Medical Decision Making: Time: 20:05 Initial impression: Suicidal ideation in setting of alcohol intoxication and noncompliance with medication Initial plan: --Crisis Evaluation As Ordered --Admit to hospital Routine: Observation for ETOH and Suicidal ideation under the care of Dr. Barak Yi MD Time: 20:35 Drug Screen, Urine Scribe Attestation: Documented by Zeynep Santos, acting as a scribe for Kd Cancino MD. Provider Scribe Attestation: All medical record entries made by the Scribe were at my direction and personally dictated by me. I have reviewed the chart and agree that the record accurately reflects my personal performance of the history, physical exam, medical decision making, and the department course for this patient. I have also personally directed, reviewed, and agree with the discharge instructions and disposition. Disposition - Clinical Impression Clinical Impression: Bipolar disorder - Disposition Disposition Time: 22:30 Condition: STABLE
[2017-01-16 21:23] LABS: BARBITURATES, UR NEGATIVE (NEGATIVE); BENZODIAZEPINES, UR POSITIVE (NEGATIVE); OPIATES, UR POSITIVE (NEGATIVE); PHENCYCLIDINE, UR NEGATIVE (NEGATIVE)
[2017-01-17] MEDS ORDERED: DiphenhydrAMINE 50 mg/ml Inj IM PRN (00:56)
[2017-01-17] MEDS ORDERED: Magnesium Hydroxide Susp 30 ml UD PO PRN (00:56)
[2017-01-17] MEDS ORDERED: Alum-Mag Hydrox-Simethicone Susp (30 mL) PO PRN (00:56)
[2017-01-17 06:17] VITALS: O2SAT 96
[2017-01-17 09:41] LABS: T4 7.22 ug/dl (5.5-11.0)
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
[2017-01-19] MEDS ORDERED: Patient's Own Med (Gabapentin [Neurontin] 800 MG) PO SCH (13:00)
--- NOTE | 2017-01-19 14:17 | PCM.PYCHPN ---
Psychiatric Progress Note - Psychiatric Progress Note Patient seen today, length of contact: in treatment team Patient Chief Complaint: i don't know what i want..rehab? Problems Identified/Issues Discussed: pt has not been out of hospital in over a month. did not return to [facility] after sent to er. engaged in substance use again. family has his medications. pt states he feels anxious and does not know what he wants to do Medication Change: Yes (restart meds from last admission) Medical Record Reviewed: Yes Mental Status Examination - Cognitive Function Orientation: Person, Place, Situation, Time Memory: Intact Attention: WNL Concentration: WNL Association: [facility] Fund of Knowledge: [facility] Decription of patient's judgement and insights: superficial - Mood Mood: Anxious - Affect Affect: Broad - Speech Speech: Appropriate - Formal Thought Process Formal Thought Process: No Impairment Psychotic Thoughts and Behaviors: denies a/v hallucinations - Suicidal Ideation Suicidal Ideation: No Plan: denies currently - Homicidal Ideation Homicidal Ideation: No Goal/Treatment Plan - Goal/Treatment Plan Need for Continued Stay: Remain at risks for inpatient hospitalization, Severe functional impairment Progress Toward Problem(s) and Goals/Treatment Plan: bipolar disorder polysubstance dependence restart regular meds refer to rehab medicine following encourage participation in groups Estimated Date of D/C: 01/22/17
--- NOTE | 2017-01-20 11:48 | PCM.PYCHPN ---
Psychiatric Progress Note - Psychiatric Progress Note Patient seen today, length of contact: discussed with team Patient Chief Complaint: i am ok Problems Identified/Issues Discussed: pt with no complaints today. no c/o medication side effects. visible in milieu with peers. he is irritable with staff when needs not met immediately Medication Change: No ( ) Medical Record Reviewed: Yes Mental Status Examination - Cognitive Function Orientation: Person, Place, Situation, Time Memory: Intact Attention: WNL Concentration: WNL Association: WNL Fund of Knowledge: [facility] Decription of patient's judgement and insights: superficial - Mood Mood: Anxious - Affect Affect: Broad - Speech Speech: Appropriate - Formal Thought Process Formal Thought Process: No Impairment Psychotic Thoughts and Behaviors: denies a/v hallucinations - Suicidal Ideation Suicidal Ideation: No - Homicidal Ideation Homicidal Ideation: No Goal/Treatment Plan - Goal/Treatment Plan Need for Continued Stay: Remain at risks for inpatient hospitalization, Severe functional impairment Progress Toward Problem(s) and Goals/Treatment Plan: bipolar disorder polysubstance dependence continue current medications refer to rehab medicine following encourage participation in groups Estimated Date of D/C: 01/22/17
--- NOTE | 2017-01-21 14:12 | PCM.PYCHPN ---
Psychiatric Progress Note - Psychiatric Progress Note Patient seen today, length of contact: discussed with team Patient Chief Complaint: hanging in there Problems Identified/Issues Discussed: pt c/o feeling anxious. seems ambivalent about treatment. social with peers. no aggression. Medication Change: No ( ) Medical Record Reviewed: Yes Mental Status Examination - Cognitive Function Orientation: Person, Place, Situation, Time Memory: Intact Attention: WNL Concentration: WNL Association: WNL Fund of Knowledge: WN Decription of patient's judgement and insights: superficial - Mood Mood: Anxious - Affect Affect: Broad - Speech Speech: Appropriate - Formal Thought Process Formal Thought Process: No Impairment Psychotic Thoughts and Behaviors: denies a/v hallucinations - Suicidal Ideation Suicidal Ideation: No - Homicidal Ideation Homicidal Ideation: No Goal/Treatment Plan - Goal/Treatment Plan Need for Continued Stay: Remain at risks for inpatient hospitalization, Severe functional impairment Progress Toward Problem(s) and Goals/Treatment Plan: bipolar disorder polysubstance dependence continue current medications refer to rehab medicine following encourage participation in groups Estimated Date of D/C: 01/22/17
--- NOTE | 2017-01-22 12:10 | PCM.PYCHPN ---
Psychiatric Progress Note - Psychiatric Progress Note Patient seen today, length of contact: discussed with team Patient Chief Complaint: i am ok Problems Identified/Issues Discussed: pt visible in milieu. no c/o medication side effects. anxiety improved. Medication Change: No ( ) Medical Record Reviewed: Yes Mental Status Examination - Cognitive Function Orientation: Person, Place, Situation, Time Memory: Intact Attention: WNL Concentration: WNL Association: WNL Fund of Knowledge: WN Decription of patient's judgement and insights: superficial - Mood Mood: Neutral - Affect Affect: Constricted, Blunted - Speech Speech: Appropriate - Formal Thought Process Formal Thought Process: No Impairment Psychotic Thoughts and Behaviors: denies a/v hallucinations - Suicidal Ideation Suicidal Ideation: No - Homicidal Ideation Homicidal Ideation: No Goal/Treatment Plan - Goal/Treatment Plan Need for Continued Stay: Remain at risks for inpatient hospitalization, Severe functional impairment Progress Toward Problem(s) and Goals/Treatment Plan: bipolar disorder polysubstance dependence continue current medications refer to rehab medicine following encourage participation in groups Estimated Date of D/C: 01/22/17
[2017-01-22 17:28] VITALS: BMI 30.8
--- NOTE | 2017-01-23 12:43 | PCM.PYCHPN ---
Psychiatric Progress Note - Psychiatric Progress Note Patient seen today, length of contact: discussed with team Patient Chief Complaint: i am ok Problems Identified/Issues Discussed: pt without c/o medication side effects. anticipates discharge thursday. no aggression or agitation. Medication Change: No ( ) Medical Record Reviewed: Yes Mental Status Examination - Cognitive Function Orientation: Person, Place, Situation, Time Memory: Intact Attention: WNL Concentration: WNL Association: WNL Fund of Knowledge: WN Decription of patient's judgement and insights: superficial - Mood Mood: Neutral - Affect Affect: Constricted, Blunted - Speech Speech: Appropriate - Formal Thought Process Formal Thought Process: No Impairment Psychotic Thoughts and Behaviors: denies a/v hallucinations - Suicidal Ideation Suicidal Ideation: No - Homicidal Ideation Homicidal Ideation: No Goal/Treatment Plan - Goal/Treatment Plan Need for Continued Stay: Remain at risks for inpatient hospitalization, Severe functional impairment Progress Toward Problem(s) and Goals/Treatment Plan: bipolar disorder polysubstance dependence continue current medications refer to rehab medicine following encourage participation in groups Estimated Date of D/C: 01/22/17
--- NOTE | 2017-01-24 09:40 | PCM.PYCHPN ---
Psychiatric Progress Note - Psychiatric Progress Note Patient seen today, length of contact: discussed with team Patient Chief Complaint: i am fine Problems Identified/Issues Discussed: pt visible in milieu. social with peers. states he has no medication side effect. anxiety decreased. Medication Change: No ( ) Medical Record Reviewed: Yes Mental Status Examination - Cognitive Function Orientation: Person, Place, Situation, Time Memory: Intact Attention: WNL Concentration: WNL Association: WNL Fund of Knowledge: WN Decription of patient's judgement and insights: fair - Mood Mood: Neutral - Affect Affect: Constricted, Blunted - Speech Speech: Appropriate - Formal Thought Process Formal Thought Process: No Impairment Psychotic Thoughts and Behaviors: denies a/v hallucinations - Suicidal Ideation Suicidal Ideation: No - Homicidal Ideation Homicidal Ideation: No Goal/Treatment Plan - Goal/Treatment Plan Need for Continued Stay: Remain at risks for inpatient hospitalization, Severe functional impairment Progress Toward Problem(s) and Goals/Treatment Plan: bipolar disorder polysubstance dependence continue current medications refer to rehab medicine following encourage participation in groups Estimated Date of D/C: 01/26/17
[2017-01-24 16:53] VITALS: RESP 18
--- NOTE | 2017-01-25 12:15 | PCM.PYCHPN ---
Psychiatric Progress Note - Psychiatric Progress Note Patient seen today, length of contact: discussed with team Patient Chief Complaint: i ready this time Problems Identified/Issues Discussed: pt visible in milieu. social with peers. states he has no medication side effects. anxiety decreased. anticipating discharge tomorrow Medication Change: No ( ) Medical Record Reviewed: Yes Mental Status Examination - Cognitive Function Orientation: Person, Place, Situation, Time Memory: Intact Attention: WNL Concentration: WNL Association: WN Fund of Knowledge: [facility] Decription of patient's judgement and insights: fair - Mood Mood: Neutral - Affect Affect: Constricted, Blunted - Speech Speech: Appropriate - Formal Thought Process Formal Thought Process: No Impairment Psychotic Thoughts and Behaviors: denies a/v hallucinations - Suicidal Ideation Suicidal Ideation: No - Homicidal Ideation Homicidal Ideation: No Goal/Treatment Plan - Goal/Treatment Plan Need for Continued Stay: Remain at risks for inpatient hospitalization, Severe functional impairment Progress Toward Problem(s) and Goals/Treatment Plan: bipolar disorder polysubstance dependence continue current medications refer to rehab medicine following encourage participation in groups Estimated Date of D/C: 01/26/17
--- NOTE | 2017-01-25 14:26 | CP.PCM.CON ---
History of Present Illness - History of Present Illness History of Present Illness: Medicine consult We were called by the hospitalist team to evaluate Hank for management of his medical health. Patient was seated in the nash watching TV. Nurse at his side Patient refuses to be seen by medical team because he "feels fine" and was already seen one week ago. Nurse team aware that patient refuses to be evaluated. Camiol Ramsay PGY2 Past Patient History - Infectious Disease Hx of Infectious Diseases: None - Past Medical History & Family History Past Medical History?: No - Past Social History Smoking Status: Heavy Smoker > 10 Cigarettes Daily - CARDIAC Hx Hypertension: No - PULMONARY Hx Respiratory Disorders: No - NEUROLOGICAL Hx Seizures: No - HEENT Hx HEENT Problems: No - RENAL Hx Chronic Kidney Disease: No - ENDOCRINE/METABOLIC Hx Endocrine Disorders: No - HEMATOLOGICAL/ONCOLOGICAL Hx Human Immunodeficiency Virus (HIV): Yes (Not proved by lab work.) - INTEGUMENTARY Hx Dermatological Problems: No - MUSCULOSKELETAL/RHEUMATOLOGICAL Hx Musculoskeletal Disorders: No - GASTROINTESTINAL Hx Gastrointestinal Disorders: No - GENITOURINARY/GYNECOLOGICAL Hx Sexually Transmitted Disorders: No - PSYCHIATRIC Hx Anxiety: Yes Hx Bipolar Disorder: Yes Hx Depression: Yes Hx Schizophrenia: Yes - SURGICAL HISTORY Hx Surgeries: Yes Hx Orthopedic Surgery: Yes (14 yrs ago rt ankle) - ANESTHESIA Hx Anesthesia: Yes Hx Anesthesia Reactions: No Hx Malignant Hyperthermia: No Meds Allergies/Adverse Reactions: Allergies Allergy/AdvReac Type Severity Reaction Status Date / Time FISH Allergy Severe RASH Verified 01/16/17 19:21 EGG Allergy RASH Verified 01/16/17 19:21 haloperidol [From Haldol] Allergy SHORTNESS Verified 01/16/17 19:22 OF BREATH Penicillins Allergy RASH Verified 01/16/17 19:21 - Medications Medications: Current Medications Acetaminophen (Tylenol 325mg Tab) 650 mg PO Q4 PRN PRN Reason: Pain, moderate (4-7) Al Hydrox/Mg Hydrox/Simethicone (Maalox Plus 30 Ml) 30 ml PO Q4 PRN PRN Reason: Dyspepsia Clonidine HCl (Catapres) 0.1 mg PO BID [facility] Last Admin: 01/25/17 09:09 Dose: 0.1 mg Diphenhydramine HCl (Benadryl) 50 mg IM Q6 PRN PRN Reason: Extrapyramidal S/S Unable PO Diphenhydramine HCl (Benadryl) 50 mg PO HS PRN PRN Reason: Sleep Last Admin: 01/17/17 21:11 Dose: 50 mg Folic Acid (Folic Acid) 1 mg PO DAILY [facility] Last Admin: 01/25/17 09:08 Dose: 1 mg Gabapentin (Neurontin) 800 mg PO QID [facility] Last Admin: 01/25/17 13:09 Dose: 800 mg Hydroxyzine Pamoate (Vistaril) 50 mg PO Q6H PRN PRN Reason: Anxiety Last Admin: 01/24/17 11:27 Dose: 50 mg Magnesium Hydroxide (Milk Of Magnesia) 30 ml PO HS PRN PRN Reason: Constipation Mirtazapine (Remeron) 30 mg PO HS [facility] Last Admin: 01/24/17 21:02 Dose: 30 mg Nicotine (Nicoderm Cq) 1 patch TD DAILY [facility] Last Admin: 01/25/17 09:07 Dose: 1 patch Quetiapine Fumarate (Seroquel) 100 mg PO HS [facility] Last Admin: 01/24/17 21:02 Dose: 100 mg Sertraline HCl (Zoloft) 100 mg PO DAILY [facility] Last Admin: 01/25/17 09:08 Dose: 100 mg Thiamine HCl (Vitamin B1 Tab) 100 mg PO DAILY [facility] Last Admin: 01/25/17 09:08 Dose: 100 mg Results - Vital Signs Recent Vital Signs: Last Vital Signs Temp 98.2 F 01/24/17 16:51 Pulse 75 01/25/17 09:09 Resp 18 01/24/17 16:51 BP 118/63 01/25/17 09:09 Pulse Ox 96 01/17/17 06:17 - Labs Result Diagrams: 01/16/17 20:20 01/16/17 20:20
--- NOTE | 2017-01-26 13:51 | PCM.PYCHPN ---
Psychiatric Progress Note - Psychiatric Progress Note Patient seen today, length of contact: in treatment team Patient Chief Complaint: i can leave tomorrow Problems Identified/Issues Discussed: pt visible in milieu. social with peers as well as staff and appears comfortable. states he has no medication side effects. anxiety decreased. anticipating discharge thursday Medication Change: No ( ) Medical Record Reviewed: Yes Mental Status Examination - Cognitive Function Orientation: Person, Place, Situation, Time Memory: Intact Attention: WNL Concentration: WNL Association: [facility] Fund of Knowledge: [facility] Decription of patient's judgement and insights: fair - Mood Mood: Neutral - Affect Affect: Constricted, Blunted - Speech Speech: Appropriate - Formal Thought Process Formal Thought Process: No Impairment Psychotic Thoughts and Behaviors: denies a/v hallucinations - Suicidal Ideation Suicidal Ideation: No - Homicidal Ideation Homicidal Ideation: No Goal/Treatment Plan - Goal/Treatment Plan Need for Continued Stay: Remain at risks for inpatient hospitalization, Severe functional impairment Progress Toward Problem(s) and Goals/Treatment Plan: bipolar disorder polysubstance dependence continue current medications refer to rehab medicine following encourage participation in groups discharge 01/27 Estimated Date of D/C: 01/26/17
[2017-01-27 09:14] VITALS: BP 133/96; TEMP 97.9
[2017-01-27 09:26] VITALS: PULSE 95
--- NOTE | 2017-01-27 12:29 | PCM.PYCHDC ---
Mental Status Examination - Mental Status Examination Orientation: Person, Place, Situation, Time Memory: Intact Mood: Neutral Affect: Broad Speech: Appropriate Attention: WNL Concentration: WNL Association: WNL Fund of Knowledge: WNL Formal Thought Process: No Impairment Description of patient's judgement and insight: fair Psychotic Thoughts and Behaviors: denies a/v hallucinations Suicidal Ideation: No Current Homicidal Ideation?: No Plan: denies any suicidal or homicidal thoughts/plans or intent Discharge Summary - Discharge Note Reason for Hospitalization: relapse, anxiety, suicidal thoughts Psychiatric History (includes Medical, Family, Personal Hx): multiple recent admissions, polysubstance dependence, depression Consultations:: List each consultation separately and include: 1. Reason for request. 2. Findings. 3. Follow-up Consultations: seen by hospitalist Summary of Hospital Course include:: 1. Description of specific treatment plan utilized for patients during their course of treatmen. 2. Summarize the time- course for resolution of acute symptoms and/or regressed behaviors. 3. Describe issues identified and worked on during hospitalization. 4. Describe medication utilized. 5. Describe medical problems identified and treated. 6. Reassessment of suicide risk Summary of Hospital Course: admitted to [facility] and oriented to the unit home medications were restarted and remeron was added for sleep he was agreeable to rehab referral and was participating in treatment at the time of discharge he was goal directed, and future oriented and denying suicidal or homicidal thoughts he did not have any c/o medication side effects. - Final Diagnosis (DSM 5) Condition upon Discharge: STABLE DSM 5: polysubstance dependence bipolar disorder unspecified Disposition: HOME/ ROUTINE Follow-up Treatment Plan: follow up with [facility] as directed take medications as prescribed do not use alcohol, tobacco or other illicit substances call 911 if any suicidal or homicidal thoughts. Prescriptions/Medication Reconciliation: Mirtazapine [Remeron] 30 mg PO HS #30 tab Mirtazapine [Remeron] 30 mg PO HS #30 tab - Smoking Cessation Smoking Cessation Medication prescribed: No Reason for not providing: declines - Antipsychotic Medications Pt discharged on 2 or more routine antipsychotic medications: No
== END 2017-01-27 12:06 | disposition home or self-care (01) | DRG 430 ==
LOC: H.ER 19:19 → H.EROBSV 20:07 → H.ERHOLD 22:48 → OBSVTOIN 22:48 → H.PSYCH 01-17 00:55
PROVIDERS: ADMIT Nurse Practitioner Psychiatric/Mental Health; ATTEND Nurse Practitioner Psychiatric/Mental Health
PROC: GZ3ZZZZ Medication Management (ICD-10-PCS; principal; 2017-01-19)
DX: F31.9 Bipolar disorder, unspecified (principal); R45.851 Suicidal ideations; Z91.14 Patient's other noncompliance with medication regimen; F19.20 Other psychoactive substance dependence, uncomplicated; F41.9 Anxiety disorder, unspecified

== ENCOUNTER 2017-02-06 22:53 | Inpatient (IN) | payer MEDICAID, OTHER ==
[2017-02-06 22:54] VITALS: BMI 30.8
--- NOTE | 2017-02-06 23:47 | ED PDOC ---
HPI: Psych/Substance Abuse Time Seen by Provider: 02/06/17 23:35 Chief Complaint (Nursing): Psychiatric Evaluation Chief Complaint (Provider): crisis eval History Per: Patient History/Exam Limitations: no limitations Onset/Duration Of Symptoms: Days (1 week) Current Symptoms Are (Timing): Still Present Suicide/Self Injury Attempted (Context): Other (jump in river) Additional History Per: Patient Additional Complaint(s): 47 y/o male history of depression presents for crisis eval. Patient states for the last week he has feelings of ending his life by jumping in the river and hurting anyone who tries to stop him. Patient noncompliant with psych meds. Admits to drinking and using heroin tonight. Denies hallucinations, acute medical complaints. Past Medical History Reviewed: Historical Data, Nursing Documentation, Vital Signs Vital Signs: Last Vital Signs Temp 100.7 F H 02/06/17 22:56 Pulse 125 H 02/06/17 22:56 Resp 16 02/06/17 22:56 BP 141/88 02/06/17 22:56 Pulse Ox 93 L 02/06/17 22:56 - Medical History PMH: Anxiety, Bipolar Disorder, Depression, HIV (Not proved by lab work.), Schizophrenia Denies: Diabetes, Hepatitis, HTN, Chronic Kidney Disease, Seizures, Sexually Transmitted Disease - Family History Family History: States: Unknown Family Hx - Immunization History Hx Tetanus Toxoid Vaccination: Yes Hx Influenza Vaccination: No Hx Pneumococcal Vaccination: No - Home Medications Home Medications: Ambulatory Orders Medication Instructions Recorded Folic Acid 1 mg PO DAILY #30 tab 12/30/16 Nicotine 21 mg/24 hr [Nicoderm Cq] 1 patch TD DAILY #30 patch 12/30/16 QUEtiapine [Seroquel] 100 mg PO HS #30 tab 12/30/16 Thiamine [Vitamin B1 Tab] 100 mg PO DAILY #30 tab 12/30/16 Mirtazapine [Remeron] 30 mg PO HS #30 tab 01/12/17 Sertraline [Zoloft] 100 mg PO DAILY #30 tab 01/12/17 Mirtazapine [Remeron] 30 mg PO HS #30 tab 01/27/17 Mirtazapine [Remeron] 30 mg PO HS #30 tab 01/27/17 - Allergies Allergies/Adverse Reactions: Allergies Allergy/AdvReac Type Severity Reaction Status Date / Time FISH Allergy Severe RASH Verified 01/16/17 19:21 EGG Allergy RASH Verified 01/16/17 19:21 haloperidol [From Haldol] Allergy SHORTNESS Verified 01/16/17 19:22 OF BREATH Penicillins Allergy RASH Verified 01/16/17 19:21 Review of Systems ROS Statement: Except As Marked, All Systems Reviewed And Found Negative Psych: Positive for: Depression, Suicidal ideation Physical Exam - Reviewed Nursing Documentation Reviewed: Yes Vital Signs Reviewed: Yes - Physical Exam Appears: Positive for: Well, Non-toxic, No Acute Distress Head Exam: Positive for: ATRAUMATIC, NORMAL INSPECTION, NORMOCEPHALIC Skin: Positive for: Normal Color Eye Exam: Positive for: Normal appearance ENT: Positive for: Normal ENT Inspection Cardiovascular/Chest: Positive for: Regular Rate, Rhythm Respiratory: Positive for: Normal Breath Sounds Gastrointestinal/Abdominal: Positive for: Normal Exam Back: Positive for: Normal Inspection Extremity: Positive for: Normal ROM Neurologic/Psych: Positive for: Alert, Oriented - Laboratory Results Result Diagrams: 02/06/17 00:04 02/06/17 23:59 - ECG ECG: Positive for: Viewed By Me (reviewed by ED attending) ECG Rhythm: Positive for: Sinus Tachycardia (106bpm) O2 Sat by Pulse Oximetry: 93 - Radiology X-Ray: Viewed By Me X-Ray Interpretation: No Acute Disease - Progress ED Course And Treament: labs, urine, ekg, crisis eval Patient evaluated by pantry worker; to be admitted as per Dr. Medina. Medical Decision Making Medical Decision Making: Patient medically stable for psych admission. Disposition - Clinical Impression Clinical Impression: Depression - Patient ED Disposition Is Patient to be Admitted: Yes - Disposition Disposition Time: 01:54 Condition: STABLE - Pt Status Changed To: Hospital Disposition Of: Inpatient - Admit Certification Admit to Inpatient:: After my assessment, the patient will require hospitalization for at least two midnights. This is because of the severity of symptoms shown, intensity of services needed, and/or the medical risk in this patient being treated as an outpatient.
[2017-02-07 00:08] LABS: BASO # 0.1 K/uL (0.0-0.2); BASO % 0.8 % (0.0-2.0); EOS # 0.1 K/uL (0.0-0.7); EOS % 0.8 % (0.0-4.0); HEMOGLOBIN 13.2 g/dL (12.0-18.0); LYMPH # 1.7 K/uL (1.0-4.3); LYMPH % 19.5 % (20.0-40.0); MEAN CELL VOLUME 94.8 fl (80.0-94.0); MEAN CORPUSCULAR HEMOGLOBIN 31.4 pg (27.0-31.0); MEAN CORPUSCULAR HGB CONC 33.1 g/dL (33.0-37.0); MEAN PLATELET VOLUME 7.4 fl (7.2-11.7); MONO # 0.5 K/uL (0.0-0.8); MONO % 5.5 % (0.0-10.0); NEUT # 6.5 K/uL (1.8-7.0); NEUT % 73.4 % (50.0-75.0); RBC 4.22 Mil/uL (4.40-5.90); RED CELL DISTRIBUTION WIDTH 13.3 % (11.5-14.5); WHITE BLOOD COUNT 8.9 K/uL (4.8-10.8)
[2017-02-07 00:16] LABS: ALB/GLOB RATIO 1.7 (1.0-2.1); ALBUMIN 4.2 g/dL (3.5-5.0); ALT/SGPT 50 U/L (21-72); AST/SGOT 49 U/L (17-59); BLOOD UREA NITROGEN 15 mg/dl (9-20); CALCIUM 8.8 mg/dL (8.4-10.2); GFR AFRICAN-AMERICAN > 60; GFR NON-AFRICAN AMERICAN > 60
[2017-02-07 00:29] LABS: BARBITURATES, UR NEGATIVE (NEGATIVE); BENZODIAZEPINES, UR POSITIVE (NEGATIVE); OPIATES, UR POSITIVE (NEGATIVE); PHENCYCLIDINE, UR NEGATIVE (NEGATIVE)
[2017-02-07 00:42] LABS: SQUAMOUS EPITHIAL 1 /hpf (0-5); URINE BILIRUBIN NEGATIVE (NEGATIVE); URINE BLOOD NEGATIVE (NEGATIVE); URINE CLARITY CLEAR (Clear); URINE COLOR YELLOW (YELLOW); URINE GLUCOSE (UA) NEG (Normal); URINE LEUKOCYTE ESTERASE NEG Leu/uL (Negative); URINE NITRATE NEGATIVE (NEGATIVE); URINE PROTEIN NEGATIVE (NEGATIVE); URINE UROBILINOGEN 0.2-1.0 mg/dL (0.2-1.0)
[2017-02-07 02:25] VITALS: O2SAT 95
[2017-02-07] MEDS ORDERED: Bismuth Subsalicylate 262 mg/15 ml Sus (240 ml) PO PRN (02:49)
[2017-02-07] MEDS ORDERED: Alum-Mag Hydrox-Simethicone Susp (30 mL) PO PRN (02:49)
[2017-02-07] MEDS ORDERED: Magnesium Hydroxide Susp 30 ml UD PO PRN (02:49)
[2017-02-07] MEDS ORDERED: DiphenhydrAMINE 50 mg/ml Inj IM PRN (02:53)
[2017-02-07 08:20] LABS: T4 6.73 ug/dl (5.5-11.0)
--- NOTE | 2017-02-07 08:31 | RAD ---
HISTORY: admit COMPARISON: 12/31/2016 TECHNIQUE: Chest PA and lateral FINDINGS: LUNGS: No active pulmonary disease. PLEURA: No significant pleural effusion identified. No pneumothorax apparent. CARDIOVASCULAR: Normal. OSSEOUS STRUCTURES: No significant abnormalities. VISUALIZED UPPER ABDOMEN: Normal. OTHER FINDINGS: Elevated left hemidiaphragm with bowel in the left chest cavity. No interval change. IMPRESSION: No active disease.
--- NOTE | 2017-02-07 17:16 | PCM.PSYCH ---
Initial Psychiatric Evaluation - Initial Psychiatric Evaluation Chief Complaint (in patient's own words): was feeling down, drinking etoh, using heroine sniffing, friend , was thinking of jumping [place] or thinking about hurting people without anyone in particular being identified History of Present Illness and Precipitating Events: Pt is a 47 y/o male who brought himself into ED secondary to feeling suicidal. Pt stated he has been feeling depressed for 1 week. Pt stated he recently had a birthday and is feeling "worthless". Pt reported that he cannot find a job and was kicked out of his brothers who he was living with as of yesterday. Pt stated he is suicidal with a plan to jump in the river. Pt denied attempting suicide in the past. Pt stated he takes Seroquel, Zoloft, Remeron, and Neurontin, however, has not taken any in a week due to not refilling the meds. Pt stated Dr. Nieto prescribed the meds the last time he was admitted to [facility]. Pt stated he has had many psych admissions to [facility]. Pt admitted to drinking alcohol 2x a week and drinks about "20 cans of beer and a few pints of rum" and pt stated he uses Heroin sometimes and will use 3-4 bags a day. Pt reported his most recent use was yesterday morning. Pt stated he has an hx of anxiety and depression. Pt stated he has not followed up with any outpatient tx. Pt denied a/v hallucinations. Pt denied any sexual , physical, and emotional abuse. Pt stated he has been arrested in the past for shoplifting and most recent arrest was 2 years ago. Pt stated he would sign himself into psych unit if offered admission. Pt was calm and cooperative during assessment. Pt had a flat affect with normal speech. Pt stated he will not attempt suicide while on the floor and if he was still feeling suicidal that he would communicate with the Nurses or staff on the floor. Pt has had many admissions to [facility] and [facility]. Pt was admitted to [facility] 2 times in and 3 times in 12/2016 to [facility]. Pt was just discharged on . [ reports did not follow up upon discharge stopped medication, a friend had recently , started drinking and using intranasal heroine. reports etoh/ opiates last used prior to admission. reports when on neurontin, trazodone, seroquel felt better. reports believes would be better served by long term care phlebotomist rehab upon discharge, realizes decreased availability. Current Medications: Active Medications Generic Name Dose Route Start Last Admin Trade Name Freq PRN Reason Stop Dose Admin Acetaminophen 650 mg 02/07/17 02:49 02/07/17 03:51 Tylenol 325mg Tab PO 650 mg Q4 PRN Administration Pain, moderate (4-7) Al Hydrox/Mg Hydrox/Simethicone 30 ml 02/07/17 02:49 Maalox Plus 30 Ml PO Q4 PRN Dyspepsia Bismuth Subsalicylate 524 mg 02/07/17 02:49 Pepto-Bismol PO Q4 PRN Diarrhea Diphenhydramine HCl 50 mg 02/07/17 02:53 Benadryl IM Q6 PRN Extrapyramidal S/S Unable PO Diphenhydramine HCl 50 mg 02/07/17 02:53 Benadryl PO Q6 PRN Extrapyramidal Symptoms Diphenhydramine HCl 50 mg 02/07/17 02:54 Benadryl PO HS PRN Sleep Home Med 800 mg 02/07/17 22:00 Gabapentin [Neurontin] PO QID IDALIA Lorazepam 2 mg 02/07/17 02:53 Ativan IM Q4 PRN Anxiety/Agitation,Unable PO Lorazepam 1 mg 02/07/17 14:51 02/07/17 14:54 Ativan PO 1 mg Q6 PRN Administration anxiety and aggitation Magnesium Hydroxide 30 ml 02/07/17 02:49 Milk Of Magnesia PO HS PRN Constipation Mirtazapine 30 mg 02/07/17 22:00 Remeron PO HS IDALIA Quetiapine Fumarate 100 mg 02/07/17 22:00 Seroquel PO HS IDALIA Sertraline HCl 100 mg 02/08/17 09:00 Zoloft PO DAILY IDALIA Past Psychiatric History - Past Psychiatric History Prior Psychiatric Treatment: multiple admission [facility] most recent 01/27/17o History of Abuse: denies History of ETOH/Drug Use: long term care phlebotomist etoh heroine ?benzo History of Family Illness: depression addiction not giving further details Pertinent Medical Hx (Current Medical&Sleep Prob, Allergies): Allergies Allergy/AdvReac Type Severity Reaction Status Date / Time FISH Allergy Severe RASH Verified 01/16/17 19:21 EGG Allergy RASH Verified 01/16/17 19:21 haloperidol [From Haldol] Allergy SHORTNESS Verified 01/16/17 19:22 OF BREATH Penicillins Allergy RASH Verified 01/16/17 19:21 QUEtiapine [Seroquel] 100 mg PO HS #30 tab 12/30/16 Sertraline [Zoloft] 100 mg PO DAILY #30 tab 01/12/17 Mirtazapine [Remeron] 30 mg PO HS #30 tab 01/27/17 Gabapentin [Neurontin] 800 mg PO QID 02/07/17 Review of Systems - Psychiatric Psychiatric: Abnormal Sleep Pattern, Anhedonia, Change in Appetite, Depression, Homicidal Ideation, Hopelessness Mental Status Examination - Personal Presentation Personal Presentation: Looks stated age - Affect Affect: Constricted - Motor Activity Motor Activity: Calm - Reliability in Providing Information Reliability in Providing Information: Other - Speech Speech: Organized - Mood Mood: Depressed, Anxious - Obsessions/Compulsions Obsessions: No Compulsions: No - Cognitive Functions Orientation: Person, Place, Situation, Time Sensorium: Alert Attention/Concentration: Attentive Memory: Recent impaired, as evidence by: Inability to recall events of the day - Risk Risk: Suicidal, Homicidal, Withdrawal - Strength & Assets Inventory Strength & Assets Inventory: Cooperative - Limitations Additional comments: repeat admissions, not following up, relapse substance use DSM 5 DX - DSM 5 DSM 5 Diagnosis: major depressive disorder moderate to severe bipolar disorder I mre depressed polysubstance use: etoh,heroin, benzo active substance induced mood disorder - Recommended/Plan of Treatment Treatment Recommendations and Plan of Treatment: admission per dr sesay vital signs/clinical observation per protocol and per clinical status resume medications from discharge [id number] as reported to work without side effects per pt hx will decrease lorazepam to 1mg po prn for withdrawal and or anxiety as pt appears to be seeking rx just before each due time (pt will be re started on gabapentin) hospitalist consult pt allergic to eggs dietary notified dietary consult discharge planning in progress long term care phlebotomist detox if avail or if possible referral to [facility] upon discharge Projected ELOS: 5 - 7 days Prognosis: guarded Discharge Plan and Discharge Criteria: safety - Smoking Cessation Smoking Cessation Initiated: No Reason for not providing: pt defers
--- NOTE | 2017-02-07 18:03 | CP.PCM.CON ---
<RolandwendieYoshi - Last Filed: 02/07/17 18:17> History of Present Illness - History of Present Illness History of Present Illness: HPI: 47 y/o male with a PMHx remarkable for depression, bipolar disorder, anxiety and polysubstance abuse presented to [facility] ED for evalutation after a 1 day hx of depression and suicidal ideation. Reports being noncomplaint with medications and has been using heroin and abusing ETOH. Reports "wanting to jump into a river to end it all". No homicidal ideation. No visual or auditory hallucinations. No medical complaints. Reports being HIV positive. Denies fever/ chills, headaches, changes in vision, CP/SOB/Palpitations. ROS: 12 points reviewed, found to be negative PMD: none PMHx: depression, HIV+ (as per pt, no confirmatory lab work) Meds: as per med rec ALL: Penicillin (unknown rxn), haloperidol PsurgHx: none SocialHx: lives at home by himself in [place], unemployed, 1 PPD for >1 year smoking hx, ETOH abuse daily, " as much as possible on anything he can get his hands on", heroin abuse (last usage last night) FamilyHx: noncontributory PE: Gen: AAOx3, NAD, cooperative with exam Neuro: CN II-XII grossly intact, gait normal, reflexes equal throughout, sensation intact PSYCH: flat affect, depressed mood, cooperative with exam, no current suicidal/ homicidal ideation CVS: RRR, S1S2+, no MRG, No JVD LUNGS: CTA B/L, A/P, good air entry, no WRR ABD: Soft, +BS, NT/ND, No organomegaly, no guarding/rigidity EXT: Pulses 2+ throughout, no pedal edema, cap refill <2sec, sensation intact SKIN: dry, intact, normal color, no signs of IV drug insertion sites Assessment: 47 y/o male with a PMHx of depression, anxiety, bipolar disorder, and polysubstance abuse admitted for psychiatric evalution of major depressive disorder. Plan: 1) Major Depressive Disorder: as per psych team 2) Preventive HbA1c Lipid Panel RPR HIV Medicine team will continue to follow as pt remains in house. Past Patient History - Infectious Disease Hx of Infectious Diseases: None - Past Medical History & Family History Past Medical History?: No - Past Social History Smoking Status: Heavy Smoker > 10 Cigarettes Daily - CARDIAC Hx Hypertension: No - PULMONARY Hx Tuberculosis: No - NEUROLOGICAL Hx Seizures: No - HEENT Hx HEENT Problems: No - RENAL Hx Chronic Kidney Disease: No - ENDOCRINE/METABOLIC Hx Endocrine Disorders: No - HEMATOLOGICAL/ONCOLOGICAL Hx Blood Disorders: No Hx Human Immunodeficiency Virus (HIV): Yes (Not proved by lab work.) - INTEGUMENTARY Hx Dermatological Problems: No - MUSCULOSKELETAL/RHEUMATOLOGICAL Hx Musculoskeletal Disorders: No - GASTROINTESTINAL Hx Gastrointestinal Disorders: No - GENITOURINARY/GYNECOLOGICAL Hx Sexually Transmitted Disorders: No - PSYCHIATRIC Hx Anxiety: Yes Hx Bipolar Disorder: Yes Hx Depression: Yes Hx Substance Use: Yes - SURGICAL HISTORY Hx Surgeries: Yes Hx Orthopedic Surgery: Yes (14 yrs ago rt ankle) - ANESTHESIA Hx Anesthesia: Yes Hx Anesthesia Reactions: No Hx Malignant Hyperthermia: No Meds Allergies/Adverse Reactions: Allergies Allergy/AdvReac Type Severity Reaction Status Date / Time FISH Allergy Severe RASH Verified 01/16/17 19:21 EGG Allergy RASH Verified 01/16/17 19:21 haloperidol [From Haldol] Allergy SHORTNESS Verified 01/16/17 19:22 OF BREATH Penicillins Allergy RASH Verified 01/16/17 19:21 - Medications Medications: Current Medications Acetaminophen (Tylenol 325mg Tab) 650 mg PO Q4 PRN PRN Reason: Pain, moderate (4-7) Last Admin: 02/07/17 03:51 Dose: 650 mg Al Hydrox/Mg Hydrox/Simethicone (Maalox Plus 30 Ml) 30 ml PO Q4 PRN PRN Reason: Dyspepsia Bismuth Subsalicylate (Pepto-Bismol) 524 mg PO Q4 PRN PRN Reason: Diarrhea Diphenhydramine HCl (Benadryl) 50 mg IM Q6 PRN PRN Reason: Extrapyramidal S/S Unable PO Diphenhydramine HCl (Benadryl) 50 mg PO Q6 PRN PRN Reason: Extrapyramidal Symptoms Diphenhydramine HCl (Benadryl) 50 mg PO HS PRN PRN Reason: Sleep Gabapentin (Neurontin) 800 mg PO QID IDALIA Lorazepam (Ativan) 2 mg IM Q4 PRN PRN Reason: Anxiety/Agitation,Unable PO Lorazepam (Ativan) 1 mg PO Q6 PRN PRN Reason: anxiety and aggitation Last Admin: 02/07/17 14:54 Dose: 1 mg Magnesium Hydroxide (Milk Of Magnesia) 30 ml PO HS PRN PRN Reason: Constipation Mirtazapine (Remeron) 30 mg PO HS IDALIA Quetiapine Fumarate (Seroquel) 100 mg PO HS IDALIA Sertraline HCl (Zoloft) 100 mg PO DAILY [facility] Results - Vital Signs Recent Vital Signs: Last Vital Signs Temp 98.1 F 02/07/17 05:54 Pulse 103 H 02/07/17 05:54 Resp 18 02/07/17 05:54 BP 135/86 02/07/17 05:54 Pulse Ox 95 02/07/17 02:24 - Labs Result Diagrams: 02/06/17 00:04 02/06/17 23:59 Labs: Laboratory Results - last 24 hr 02/07/17 07:47 Triglycerides 73 D Cholesterol 125 LDL Cholesterol Direct 60 HDL Cholesterol 44 Thyroxine (T4) 6.73 TSH 3rd Generation 2.20 <Mary Castanon - Last Filed: 02/08/17 08:59> Meds - Medications Medications: Current Medications Acetaminophen (Tylenol 325mg Tab) 650 mg PO Q4 PRN PRN Reason: Pain, moderate (4-7) Last Admin: 02/07/17 03:51 Dose: 650 mg Al Hydrox/Mg Hydrox/Simethicone (Maalox Plus 30 Ml) 30 ml PO Q4 PRN PRN Reason: Dyspepsia Bismuth Subsalicylate (Pepto-Bismol) 524 mg PO Q4 PRN PRN Reason: Diarrhea Diphenhydramine HCl (Benadryl) 50 mg IM Q6 PRN PRN Reason: Extrapyramidal S/S Unable PO Diphenhydramine HCl (Benadryl) 50 mg PO Q6 PRN PRN Reason: Extrapyramidal Symptoms Last Admin: 02/08/17 08:48 Dose: 50 mg Diphenhydramine HCl (Benadryl) 50 mg PO HS PRN PRN Reason: Sleep Last Admin: 02/08/17 02:16 Dose: 50 mg Gabapentin (Neurontin) 800 mg PO QID IDALIA Last Admin: 02/08/17 08:48 Dose: 800 mg Lorazepam (Ativan) 2 mg IM Q4 PRN PRN Reason: Anxiety/Agitation,Unable PO Lorazepam (Ativan) 1 mg PO Q6 PRN PRN Reason: anxiety and aggitation Last Admin: 02/08/17 08:47 Dose: 1 mg Magnesium Hydroxide (Milk Of Magnesia) 30 ml PO HS PRN PRN Reason: Constipation Mirtazapine (Remeron) 30 mg PO HS [facility] Last Admin: 02/07/17 21:04 Dose: 30 mg Quetiapine Fumarate (Seroquel) 100 mg PO HS [facility] Last Admin: 02/07/17 21:04 Dose: 100 mg Sertraline HCl (Zoloft) 100 mg PO DAILY [facility] Last Admin: 02/08/17 08:49 Dose: 100 mg Results - Vital Signs Recent Vital Signs: Last Vital Signs Temp 97.1 F L 02/08/17 05:48 Pulse 74 02/08/17 05:48 Resp 18 02/08/17 05:48 BP 116/69 02/08/17 05:48 Pulse Ox 95 02/07/17 02:24 - Labs Result Diagrams: 02/06/17 00:04 02/06/17 23:59 Assessment & Plan - Assessment and Plan (Free Text) Assessment: ATTENDING NOTE CHART REVIEWED. CASE DISCUSSED WITH RESIDENT. AGREE WITH PLAN.
--- NOTE | 2017-02-07 20:15 | CARD ---
APPROVED REPORT EKG Measurement Heart [id number] <Conclusion> Sinus tachycardia Otherwise normal ECG
--- NOTE | 2017-02-08 15:28 | PCM.PYCHPN ---
Psychiatric Progress Note - Psychiatric Progress Note Patient seen today, length of contact: chart review case discussed with team Patient Chief Complaint: feeling little less anxious, trying to collect self trying to figure out what to do with substance abuse history and loss of friend-denies desire to join selfl Problems Identified/Issues Discussed: alteration in mood alteration in cooping substance use non adherence with recommended medical treatment-past not follow up with after care treatment Medical Problems: per chart Diagnostic Results: per nursing ] per psychiatry per social work per recreational therapy DSM 5 Symptoms Update: changes in mood substance use opiate Medication Change: No Medical Record Reviewed: Yes Consults ordered or reviewed: pt being follow up by hospitalist Mental Status Examination - Cognitive Function Orientation: Person, Place, Situation, Time Attention: WNL Concentration: WNL Association: WNL Fund of Knowledge: WNL Decription of patient's judgement and insights: somewhat impaired - Mood Mood: Depressed, Anxious - Affect Affect: Constricted - Speech Speech: Soft - Formal Thought Process Formal Thought Process: No Impairment - Suicidal Ideation Suicidal Ideation: Yes Plan: without lena plan - Homicidal Ideation Homicidal Ideation: No Goal/Treatment Plan - Goal/Treatment Plan Progress Toward Problem(s) and Goals/Treatment Plan: inpt admission/milieu therapy vital signs/clinical observation per protocol and per clinical status will decrease lorazepam to 0.5mgg po prn for withdrawal and or anxiety as pt appears to be seeking rx just before each due time (pt will be re started on gabapentin) hospitalist consult pt allergic to eggs dietary notified dietary consult discharge planning in progress pred[facility] 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
--- NOTE | 2017-02-09 09:57 | PCM.PYCHPN ---
Psychiatric Progress Note - Psychiatric Progress Note Patient seen today, length of contact: Patient evaluated, chart reviewed, case discussed with team, 35 min Patient Chief Complaint: "I'm still depressed." Problems Identified/Issues Discussed: Patient known to engineering writer from previous admissions. Patient has a history of malingering to obtain hospitalizations. He reports that he currently continues to feel depressed. No SI. We discussed the importance of compliance with medications. Patient is usually not compliant following discharge and continues to actively abuse substances (ETOH, Heroin, benzos). We discussed the dangers of substance abuse. Medication Change: No Medical Record Reviewed: Yes Mental Status Examination - Cognitive Function Orientation: Person, Place, Situation, Time Memory: Intact Attention: WNL Concentration: WNL Association: WNL Fund of Knowledge: [facility] Decription of patient's judgement and insights: Fair I/J; chronic poor judgment regarding lack of compliance with medications and chronic substance abuse - Mood Mood: Depressed - Affect Affect: Constricted - Speech Speech: Appropriate - Formal Thought Process Formal Thought Process: No Impairment Psychotic Thoughts and Behaviors: NO AH/VH/paranoia - Suicidal Ideation Suicidal Ideation: No - Homicidal Ideation Homicidal Ideation: No Goal/Treatment Plan - Goal/Treatment Plan Need for Continued Stay: Remain at risks for inpatient hospitalization, Severe depression anxiety Progress Toward Problem(s) and Goals/Treatment Plan: Substance induced mood disorder; alcohol abuse, heroin abuse, benzodiazepine abuse; Patient reports that he continues to feel depressed, but patient has a known history of malingering to obtain hospitalization and prolong his stay. Will monitor for safety an additional day given his recent suicidal statements ( not presently reporting), but will likely discharge tomorrow given the engineering writer's high suspicion that the patient is currently malingering. -Continue current medications -Likely discharge tomorrow -Medicine consult appreciated Estimated Date of D/C: 02/10/17
--- NOTE | 2017-02-09 11:05 | CP.PCM.PN ---
Subjective - Date & Time of Evaluation Date of Evaluation: 02/09/17 Time of Evaluation: 07:20 - Subjective Subjective: Medicine progress note Patient seen and examined at bedside, in no acute distress. Denies chest pain, fevers/chills, weakness or dizziness. Reports he has a good appetite, has normal urine and stool output. Ambulating without difficulty. Objective - Vital Signs/Intake and Output Vital Signs (last 24 hours): Temp Pulse Resp BP Pulse Ox 97.2 F L 61 20 134/74 95 02/09/17 06:00 02/09/17 06:00 02/09/17 06:00 02/09/17 06:00 02/07/17 02:24 - Medications Medications: Current Medications Acetaminophen (Tylenol 325mg Tab) 650 mg PO Q4 PRN PRN Reason: Pain, moderate (4-7) Last Admin: 02/07/17 03:51 Dose: 650 mg Al Hydrox/Mg Hydrox/Simethicone (Maalox Plus 30 Ml) 30 ml PO Q4 PRN PRN Reason: Dyspepsia Bismuth Subsalicylate (Pepto-Bismol) 524 mg PO Q4 PRN PRN Reason: Diarrhea Diphenhydramine HCl (Benadryl) 50 mg IM Q6 PRN PRN Reason: Extrapyramidal S/S Unable PO Diphenhydramine HCl (Benadryl) 50 mg PO Q6 PRN PRN Reason: Extrapyramidal Symptoms Last Admin: 02/08/17 08:48 Dose: 50 mg Diphenhydramine HCl (Benadryl) 50 mg PO HS PRN PRN Reason: Sleep Last Admin: 02/08/17 02:16 Dose: 50 mg Gabapentin (Neurontin) 800 mg PO QID IDALIA Last Admin: 02/09/17 08:25 Dose: 800 mg Lorazepam (Ativan) 2 mg IM Q4 PRN PRN Reason: Anxiety/Agitation,Unable PO Lorazepam (Ativan) 0.5 mg PO Q6 PRN PRN Reason: Anxiety Last Admin: 02/09/17 08:27 Dose: 0.5 mg Magnesium Hydroxide (Milk Of Magnesia) 30 ml PO HS PRN PRN Reason: Constipation Mirtazapine (Remeron) 30 mg PO HS IDALIA Last Admin: 02/08/17 21:10 Dose: 30 mg Quetiapine Fumarate (Seroquel) 100 mg PO HS [facility] Last Admin: 02/08/17 21:10 Dose: 100 mg Sertraline HCl (Zoloft) 100 mg PO DAILY [facility] Last Admin: 02/09/17 08:25 Dose: 100 mg - Constitutional Appears: Non-toxic, No Acute Distress - Head Exam Head Exam: ATRAUMATIC, NORMOCEPHALIC - Eye Exam Eye Exam: EOMI - ENT Exam ENT Exam: Mucous Membranes Moist - Neck Exam Neck Exam: Full ROM. absent: Lymphadenopathy - Respiratory Exam Respiratory Exam: Clear to Ausculation Bilateral, NORMAL BREATHING PATTERN - Cardiovascular Exam Cardiovascular Exam: REGULAR RHYTHM, +S1, +S2 - GI/Abdominal Exam GI & Abdominal Exam: Soft (obese), Normal Bowel Sounds. absent: Tenderness - Extremities Exam Extremities Exam: Full ROM. absent: Calf Tenderness, Pedal Edema - Back Exam Back Exam: absent: CVA tenderness (L), CVA tenderness (R) - Neurological Exam Neurological Exam: Alert, Awake, CN II-XII Intact - Psychiatric Exam Psychiatric exam: Normal Affect, Normal Mood. absent: Homicidal Ideation, Suicidal Ideation - Skin Skin Exam: Dry, Intact, Normal Color Assessment and Plan - Assessment and Plan (Free Text) Assessment: 47 yr old M with a PMHx of depression, anxiety, bipolar disorder, and polysubstance abuse admitted for acute management major depressive disorder/ bipolar disorder. Patient is stable from medical point of view. Plan: Major Depressive Disorder/Bipolar Disorder -as per psych team Preventive -HbA1c 5.1 -Lipid Panel wnl -RPR and HIV pending
[2017-02-10 06:08] VITALS: BP 109/60; PULSE 60; RESP 19; TEMP 97.1
--- NOTE | 2017-02-10 08:25 | PCM.PYCHDC ---
Mental Status Examination - Mental Status Examination Orientation: Person, Place, Situation, Time Memory: Intact Mood: Neutral Affect: Broad Speech: Appropriate Attention: WNL Concentration: WNL Association: WNL Fund of Knowledge: WNL Formal Thought Process: No Impairment Description of patient's judgement and insight: Fair I/J; chronic poor judgment regarding lack of compliance with medications and chronic substance abuse Psychotic Thoughts and Behaviors: NO AH/VH/paranoia Suicidal Ideation: No Current Homicidal Ideation?: No Discharge Summary - Discharge Note Reason for Hospitalization: As per initial admit note " Pt is a 47 y/o male who brought himself into ED secondary to feeling suicidal. Pt stated he has been feeling depressed for 1 week. Pt stated he recently had a birthday and is feeling "worthless". Pt reported that he cannot find a job and was kicked out of his brothers who he was living with as of yesterday. Pt stated he is suicidal with a plan to jump in the river. Pt denied attempting suicide in the past. Pt stated he takes Seroquel, Zoloft, Remeron, and Neurontin, however, has not taken any in a week due to not refilling the meds. Pt stated Dr. Nieto prescribed the meds the last time he was admitted to [facility]. Pt stated he has had many psych admissions to [facility] and [facility]. Pt admitted to drinking alcohol 2x a week and drinks about "20 cans of beer and a few pints of rum" and pt stated he uses Heroin sometimes and will use 3-4 bags a day. Pt reported his most recent use was yesterday morning. Pt stated he has an hx of anxiety and depression. Pt stated he has not followed up with any outpatient tx. Pt denied a/v hallucinations. Pt denied any sexual, physical, and emotional abuse. Pt stated he has been arrested in the past for shoplifting and most recent arrest was 2 years ago. Pt stated he would sign himself into psych unit if offered admission. Pt was calm and cooperative during assessment. Pt had a flat affect with normal speech. Pt stated he will not attempt suicide while on the floor and if he was still feeling suicidal that he would communicate with the Nurses or staff on the floor. Pt has had many admissions to [facility] and [facility]. Pt was admitted to [facility] 2 times in and 3 times in 12/2016 to [facility]. Pt was just discharged on ." Laboratory Data: Abnormal Lab Results 02/09/17 09:50 RPR Nonreactive Consultations:: List each consultation separately and include: 1. Reason for request. 2. Findings. 3. Follow-up Consultations: Medicine consult Summary of Hospital Course include:: 1. Description of specific treatment plan utilized for patients during their course of treatmen. 2. Summarize the time- course for resolution of acute symptoms and/or regressed behaviors. 3. Describe issues identified and worked on during hospitalization. 4. Describe medication utilized. 5. Describe medical problems identified and treated. 6. Reassessment of suicide risk Summary of Hospital Course: Patient admitted to the psychiatry unit and restarted on medications: Gabapentin 800 mg PO QID, Remeron 30 mg PO HS, Seroquel 100 mg PO HS, Zoloft 100 mg PO Daily. Patient reports improvement in mood and no longer reports SI. Patient has a known history of malingering to obtain psychiatric hospitalizations or prolong his stay. Individual and group therapy provided. - Final Diagnosis (DSM 5) Condition upon Discharge: STABLE DSM 5: Substance Induced Mood Disorder, Alcohol/Heroin/Benzodiazepine Use Disorder Disposition: HOME/ ROUTINE Follow-up Treatment Plan: Substance induced mood disorder; alcohol abuse, heroin abuse, benzodiazepine abuse; patient is psychiatrically stable for discharge. -Continue current medications -Medicine consult appreciated Prescriptions/Medication Reconciliation: Gabapentin [Neurontin] 800 mg PO QID #56 Mirtazapine [Remeron] 30 mg PO HS #14 tab QUEtiapine [Seroquel] 100 mg PO HS #14 tab Sertraline [Zoloft] 100 mg PO DAILY #14 tab - Smoking Cessation Smoking Cessation Medication prescribed: No Reason for not providing: Not indicated - Antipsychotic Medications Pt discharged on 2 or more routine antipsychotic medications: No
== END 2017-02-10 09:30 | disposition home or self-care (01) | DRG 430 ==
LOC: H.ER 22:53 → H.ERHOLD 02-07 01:45 → H.STEP 02-07 02:45
PROVIDERS: ADMIT Psychiatry & Neurology Psychiatry; ATTEND Psychiatry & Neurology Psychiatry
PROC: GZHZZZZ Group Psychotherapy (ICD-10-PCS; principal; 2017-02-07)
PROC: GZ58ZZZ Individual Psychotherapy, Cognitive-Behavioral (ICD-10-PCS; 2017-02-07)
DX: F32.1 Major depressive disorder, single episode, moderate (principal); F11.14 Opioid abuse with opioid-induced mood disorder; R45.851 Suicidal ideations; F13.10 Sedative, hypnotic or anxiolytic abuse, uncomplicated; Z91.14 Patient's other noncompliance with medication regimen; F10.10 Alcohol abuse, uncomplicated; F41.9 Anxiety disorder, unspecified; Z21 Asymptomatic human immunodeficiency virus [HIV] infection status; F17.210 Nicotine dependence, cigarettes, uncomplicated; Z76.5 Malingerer [conscious simulation]; Z91.012 Allergy to eggs; Z88.0 Allergy status to penicillin; Z91.013 Allergy to seafood

== ENCOUNTER 2018-09-23 23:28 | Inpatient (IN) | payer MEDICAID, OTHER ==
[2018-09-23 23:28] VITALS: BMI 30.8
--- NOTE | 2018-09-24 02:14 | ED PDOC ---
HPI: Psych/Substance Abuse Time Seen by Provider: 09/24/18 00:23 Chief Complaint (Nursing): Psychiatric Evaluation Chief Complaint (Provider): psych eval History Per: Patient History/Exam Limitations: no limitations Onset/Duration Of Symptoms: Days Current Symptoms Are (Timing): Still Present Additional Complaint(s): 48 y/o male presents for psych eval. Patient states he [facility] ago and was "clean" and "doing well", and then he lost his apartment and had to put his dog down. PAtient states he then started using heroin and alcohol again due to feeling depressed. Patient states he has suicidal thoughts, with plan to jump in the river [employer], so he came to the ED for help. Denies homicidal ideations, hallucinations, acute physical complaints. Past Medical History Reviewed: Historical Data, Nursing Documentation, Vital Signs Vital Signs: Last Vital Signs Temp 98.2 F 09/23/18 23:47 Pulse 109 H 09/23/18 23:47 Resp 20 09/23/18 23:47 BP 138/90 09/23/18 23:47 Pulse Ox 98 09/23/18 23:47 - Medical History PMH: Anxiety, Bipolar Disorder, Depression, Schizophrenia Denies: Diabetes, Hepatitis, HIV, HTN, Seizures, Sexually Transmitted Disease - Family History Family History: States: Unknown Family Hx - Immunization History Hx Tetanus Toxoid Vaccination: Yes Hx Influenza Vaccination: No Hx Pneumococcal Vaccination: No - Home Medications Home Medications: Ambulatory Orders Medication Instructions Recorded Gabapentin [Neurontin] 200 mg PO TID cap 09/27/18 - Allergies Allergies/Adverse Reactions: Allergies Allergy/AdvReac Type Severity Reaction Status Date / Time FISH Allergy Severe RASH Verified 09/23/18 23:47 EGG Allergy RASH Verified 09/23/18 23:47 haloperidol [From Haldol] Allergy SHORTNESS Verified 09/23/18 23:47 OF BREATH Penicillins Allergy RASH Verified 09/23/18 23:47 Review of Systems ROS Statement: Except As Marked, All Systems Reviewed And Found Negative Psych: Positive for: Depression, Suicidal ideation Physical Exam - Reviewed Nursing Documentation Reviewed: Yes Vital Signs Reviewed: Yes - Physical Exam Appears: Positive for: Well, Non-toxic, No Acute Distress Head Exam: Positive for: ATRAUMATIC, NORMAL INSPECTION, NORMOCEPHALIC Skin: Positive for: Normal Color Eye Exam: Positive for: Normal appearance ENT: Positive for: Normal ENT Inspection Cardiovascular/Chest: Positive for: Regular Rate, Rhythm Respiratory: Positive for: Normal Breath Sounds Gastrointestinal/Abdominal: Positive for: Normal Exam Back: Positive for: Normal Inspection Extremity: Positive for: Normal ROM Neurological/Psych: Positive for: Awake, Alert, Oriented - Laboratory Results Result Diagrams: 09/24/18 03:00 09/24/18 03:00 - ECG ECG: Positive for: Viewed By Me (reviewed by ED attending) ECG Rhythm: Positive for: Sinus Rhythm O2 Sat by Pulse Oximetry: 98 - Radiology X-Ray: Viewed By Me X-Ray Interpretation: No Acute Disease - Progress ED Course And Treament: -crisis eval -cbc -cmp -alcohol -urine drug screen -urinalysis Patient evaluated by bridge worker; to be admitted as per Dr. Sands Medical Decision Making Medical Decision Making: Patient medically stable for psych admission Disposition - Clinical Impression Clinical Impression: Depression - Patient ED Disposition Is Patient to be Admitted: Yes - Disposition Disposition Time: 06:00 Condition: STABLE
[2018-09-24 03:21] LABS: BASO % 0.4 % (0.0-2.0); EOS # 0.1 K/uL (0.0-0.7); EOS % 1.5 % (0.0-4.0); HEMOGLOBIN 13.9 g/dL (12.0-18.0); LYMPH # 2.1 K/uL (1.0-4.3); MEAN CELL VOLUME 91.2 fl (80.0-94.0); MEAN CORPUSCULAR HEMOGLOBIN 31.5 pg (27.0-31.0); MEAN CORPUSCULAR HGB CONC 34.5 g/dL (33.0-37.0); MEAN PLATELET VOLUME 7.5 fl (7.2-11.7); MONO # 0.6 K/uL (0.0-0.8); MONO % 6.4 % (0.0-10.0); NEUT # 5.7 K/uL (1.8-7.0); NEUT % 66.7 % (50.0-75.0); RBC 4.4 Mil/uL (4.40-5.90); RED CELL DISTRIBUTION WIDTH 13.2 % (11.5-14.5); WHITE BLOOD COUNT 8.6 K/uL (4.8-10.8)
[2018-09-24 03:25] LABS: SQUAMOUS EPITHIAL 1 /hpf (0-5); URINE BILIRUBIN NEGATIVE (NEGATIVE); URINE BLOOD NEGATIVE (NEGATIVE); URINE CLARITY CLEAR (Clear); URINE COLOR YELLOW (YELLOW); URINE GLUCOSE (UA) NEG (NEGATIVE); URINE LEUKOCYTE ESTERASE NEG Leu/uL (Negative); URINE PROTEIN NEGATIVE (NEGATIVE); URINE UROBILINOGEN 0.2-1.0 mg/dL (0.2-1.0)
[2018-09-24 03:38] LABS: ALB/GLOB RATIO 1.4 (1.0-2.1); ALBUMIN 3.8 g/dL (3.5-5.0); ALT/SGPT 33 U/L (21-72); AST/SGOT 26 U/L (17-59); BLOOD UREA NITROGEN 16 mg/dl (9-20); CALCIUM 9.1 mg/dL (8.4-10.2); GFR NON-AFRICAN AMERICAN > 60
[2018-09-24 04:00] LABS: BARBITURATES, UR NEGATIVE (NEGATIVE); BENZODIAZEPINES, UR POSITIVE (NEGATIVE); OPIATES, UR POSITIVE (NEGATIVE); PHENCYCLIDINE, UR NEGATIVE (NEGATIVE)
--- NOTE | 2018-09-24 07:08 | ED PDOC ---
- Laboratory Results Result Diagrams: 09/24/18 03:00 09/24/18 03:00 Lab Results: Total Bilirubin 0.3 mg/dl (0.2-1.3) 09/24/18 03:00 AST 26 U/L (17-59) 09/24/18 03:00 ALT 33 U/L (21-72) 09/24/18 03:00 Alkaline Phosphatase 90 U/L (38-126) 09/24/18 03:00 Total Protein 6.7 G/DL (6.3-8.2) 09/24/18 03:00 Albumin 3.8 g/dL (3.5-5.0) 09/24/18 03:00 Globulin 2.8 gm/dL (2.2-3.9) 09/24/18 03:00 Albumin/Globulin Ratio 1.4 (1.0-2.1) 09/24/18 03:00 Urine Color Yellow (YELLOW) 09/24/18 02:59 Urine Clarity Clear (Clear) 09/24/18 02:59 Urine pH 5.0 (5.0-8.0) 09/24/18 02:59 Ur Specific Scott 1.019 (1.003-1.030) 09/24/18 02:59 Urine Protein Negative mg/dL (NEGATIVE) 09/24/18 02:59 Urine Glucose (UA) Neg mg/dL (NEGATIVE) 09/24/18 02:59 Urine Ketones Negative mg/dL (NEGATIVE) 09/24/18 02:59 Urine Blood Negative (NEGATIVE) 09/24/18 02:59 Urine Nitrate Negative (NEGATIVE) 09/24/18 02:59 Urine Bilirubin Negative (NEGATIVE) 09/24/18 02:59 Urine Urobilinogen 0.2-1.0 mg/dL (0.2-1.0) 09/24/18 02:59 Ur Leukocyte Esterase Neg Roberto/uL (Negative) 09/24/18 02:59 Urine RBC (Auto) < 1 /hpf (0-3) 09/24/18 02:59 Urine Microscopic WBC 1 /hpf (0-5) 09/24/18 02:59 Ur Squamous Epith Cells 1 /hpf (0-5) 09/24/18 02:59 - ECG O2 Sat by Pulse Oximetry: 97 Medical Decision Making Medical Decision Making: Time: 0700 --Patient is endorsed to provider by Dr. Garcia, pending official CXR results. Scribe Attestation: Documented by Kerri Penaloza, acting as a scribe for Marni Ayala MD. Provider Scribe Attestation: All medical record entries made by the Scribe were at my direction and person ally dictated by me. I have reviewed the chart and agree that the record accurately reflects my personal performance of the history, physical exam, medical decision making, and the department course for this patient. I have also personally directed, reviewed, and agree with the discharge instructions and disposition. Disposition - Clinical Impression Clinical Impression: Depression - Disposition Condition: STABLE
--- NOTE | 2018-09-24 08:05 | RAD ---
Date of service: 09/24/2018 HISTORY: admit COMPARISON: Chest radiographs 02/07/2017. FINDINGS: LUNGS: Massive hiatal or Bochdalek hernia obscures left base. No acute infiltrates identified bilaterally. PLEURA: No significant pleural effusion identified, no pneumothorax apparent. CARDIOVASCULAR: Calcific atherosclerotic changes are seen related to the thoracic aorta. Cardiac silhouette is obscured by large hernia. No pulmonary vascular congestion. OSSEOUS STRUCTURES: No significant abnormalities. VISUALIZED UPPER ABDOMEN: Normal. OTHER FINDINGS: None. IMPRESSION: No interval acute cardiopulmonary disease appreciated.
[2018-09-24] MEDS ORDERED: Magnesium Hydroxide Susp 30 ml UD PO PRN (10:01)
[2018-09-24] MEDS ORDERED: Alum-Mag Hydrox-Simethicone Susp (30 mL) PO PRN (10:01)
[2018-09-24] MEDS ORDERED: DiphenhydrAMINE 50 mg/ml Inj IM PRN (10:01)
--- NOTE | 2018-09-24 11:39 | PCM.PSYCH ---
Initial Psychiatric Evaluation - Initial Psychiatric Evaluation Type of Admission: Voluntary Chief Complaint (in patient's own words): I am tired and I have no energy History of Present Illness and Precipitating Events: pt is 48 ys old male with previous diagnosis of depression, opiate and alcohol dependence, presented to ER having suicidal ideation with plan to jump off the bridge pt reported has been increasingly depressed in the past few weeks since his discharge from [facility], in the context of being homeless loosing his apartment , having to put his dog to sleep, having financial difficulties and unable to support himself pt relapsed on heroin using about three bags daily, on day of evaluation he also used unspecified amount of alcohol on the unit patient is uncooperative with poor eye contact, reported feeling hopeless, low energy, poor motivation passive suicidal ideation without active plan on the unit, denied command hallucinations, denied homicidal ideation Current Medications: Active Medications Generic Name Dose Route Start Last Admin Trade Name Freq PRN Reason Stop Dose Admin Acetaminophen 650 mg 09/24/18 10:01 Tylenol 325mg Tab PO Q4 PRN Pain, moderate (4-7) Al Hydrox/Mg Hydrox/Simethicone 30 ml 09/24/18 10:01 Maalox Plus 30 Ml PO Q4 PRN Dyspepsia Clonidine HCl 0.1 mg 09/24/18 13:00 Catapres PO TID IDALIA Cyclobenzaprine HCl 5 mg 09/24/18 09:59 Flexeril PO Q8 PRN Muscle spasm Diphenhydramine HCl 50 mg 09/24/18 10:01 Benadryl IM Q6 PRN Extrapyramidal S/S Unable PO Diphenhydramine HCl 50 mg 09/24/18 10:01 Benadryl PO Q6 PRN Extrapyramidal Symptoms Haloperidol 5 mg 09/24/18 10:01 Haldol PO Q4 PRN Agitation Haloperidol Lactate 5 mg 09/24/18 10:01 Haldol IM Q4 PRN Agitation, Unable to Take PO Loperamide HCl 2 mg 09/24/18 09:59 Imodium PO Q6 PRN Diarrhea Lorazepam 2 mg 09/24/18 10:01 Ativan IM Q4 PRN Anxiety/Agitation,Unable PO Lorazepam 2 mg 09/24/18 10:01 Ativan PO Q4 PRN Anxiety/Agitation Magnesium Hydroxide 30 ml 03/08/19 10:01 Milk Of Magnesia PO HS PRN Constipation Past Psychiatric History - Past Psychiatric History Explanation of prior treatment: multiple hospitalizations, hx of non compliance History of ETOH/Drug Use: alcohol and opiate use Pertinent Medical Hx (Current Medical&Sleep Prob, Allergies): Allergies Allergy/AdvReac Type Severity Reaction Status Date / Time FISH Allergy Severe RASH Verified 09/23/18 23:47 EGG Allergy RASH Verified 09/23/18 23:47 haloperidol [From Haldol] Allergy SHORTNESS Verified 09/23/18 23:47 OF BREATH Penicillins Allergy RASH Verified 09/23/18 23:47 Gabapentin [Neurontin] 300 mg PO TID #90 cap 12/28/17 QUEtiapine [Seroquel] 100 mg PO HS #30 tab 12/28/17 traZODone [Desyrel] 100 mg PO HS PRN #30 tab 12/28/17 Mental Status Examination - Personal Presentation Personal Presentation: Looks older than stated age - Affect Affect: Constricted, Depressed - Motor Activity Motor Activity: Psychomotor Retardation - Reliability in Providing Information Reliability in Providing Information: Poor, due to altered mood - Speech Speech: Relevant - Mood Mood: Depressed, Anxious - Formal Thought Process Formal Thought Process: Circumstantial - Obsessions/Compulsions Obsessions: No Compulsions: No - Cognitive Functions Orientation: Person, Place Sensorium: Alert Abstract Thinking: [place] Judgement: Imparied, as evidence by: Poor judgement, Imparied, as evidence by: Lack of insight into illness - Risk Risk: Suicidal, Withdrawal, Diminished functioning - Strength & Assets Inventory Strength & Assets Inventory: Life experience - Limitations Additional comments: poor compliance DSM 5 DX - DSM 5 DSM 5 Diagnosis: substance induced mood disorder with depressive features opiate use disorder alcohol use disorder depressive disorder - Recommended/Plan of Treatment Treatment Recommendations and Plan of Treatment: start clonidine protocol/ monitor pt for symptoms and signs of opiate withdrawal neurontin 200mg tid for anxiety and alcohol withdrawal seroquel 100mg qhs for depression/ increase gradually motivational group and supportive therapy internal medicine consult
--- NOTE | 2018-09-24 18:44 | CARD ---
APPROVED REPORT Date of service: 09/24/2018 EKG Measurement Heart [id number] <Conclusion> Normal sinus rhythm Nonspecific ST abnormality Abnormal ECG
--- NOTE | 2018-09-24 18:45 | PCM.BM ---
<Alissa aCin - Last Filed: 09/24/18 18:41> Treatment Plan Problems - Problems identified on initial assessmt Feelings of Worthlesness Date Initiated: 09/24/18 Time Initiated: 18:41 Assessment reference: NA Status: Active Altered Sleep Patterns Date Initiated: 09/24/18 Time Initiated: 18:45 Assessment reference: NA Status: Active Social Isolation Date Initiated: 09/24/18 Time Initiated: 18:46 Assessment reference: NA Status: Active Denial Date Initiated: 09/24/18 Time Initiated: 18:46 Assessment reference: NA Status: Active Treatment assets and liabiliti Patient Assests: adapts well, cooperative, motivated, ADL independent, physically healthy, negotiates basic needs, cognitively intact, good interpersonal skills Patient Liabilities: financial problems, substance abuse - Milieu Protocol Maintain good personal hygiene: daily Encourage regular showers, daily Remind patient to perform daily oral care, daily Assist patient to perform ADL's, every shift Encourage regular showers, every shift Remind patient to perform daily oral care, every shift Assist patient to perform ADL's Maintain personal safety: daily Educate patient to report safety concerns to staff, daily Monitor environment for contraband/sharps Medication safety: Monitor for expected outcome, potential side effects: daily, every shift, Assess barriers to learning: daily, every shift, Assess readiness for medication education: daily, every shift Milieu Narrative: start clonidine protocol/ monitor pt for symptoms and signs of opiate withdrawal neurontin 200mg tid for anxiety and alcohol withdrawal seroquel 100mg qhs for depression/ increase gradually motivational group and supportive therapy internal medicine consult Discharge/Continuing Care - Treatment Team Participation Patient/Family/SO Statement: start clonidine protocol/ monitor pt for symptoms and signs of opiate withdrawal neurontin 200mg tid for anxiety and alcohol withdrawal seroquel 100mg qhs for depression/ increase gradually motivational group and supportive therapy internal medicine consult <Yudy Hickman - Last Filed: 09/27/18 12:17> Treatment assets and liabiliti Patient Assests: adapts well, cooperative, motivated, resourceful, self-reliant, ADL independent, physically healthy, good support system, negotiates basic needs, cognitively intact, good interpersonal skills Patient Liabilities: financial problems, substance abuse, legal issue Family Contact Family involvement: Famliy/SO not involved Family contact: Patient declines to allow family contact at present - Goals for Treatment Patient goals for treatment: Patient strongly encouraged to continue stabilization on 3NP through medication management and group/supportive therapy. Benefits of attending groups regularly to promote self-awareness, sobriety, and improve insight, compliance, coping skills and self-esteem were discussed. Patient encouraged to remain adherent with community linkages to reduce risk of future hospitalizations and ensure safety in the community. Pt. identified primary tx goal as being discharged in order to keep placement with [facility] and continue with IOP. Discharge/Continuing Care - Education Needs Education Needs: Patient Medication, Patient Diagnosis/Disease Process, Patient Coping Skills, Patient Community resources, Patient Aftercare Safety Plan - Discharge Discharge Criteria: Tolerates medication w/o severe side effects, Free of Suicidal thoughts, Free of agitation, Normal sleep pattern, Ability to care for self, No longer exhibiting s/s of withdrawal Discharge to:: Other ([facility]- Re-Entry Program) - Treatment Team Participation Patient/Family/SO Statement: 09/27/18 12:18 Pt. was invited to tx team this morning and attended with fair participation. Pt. reported currently being in a re-entry program ([facility]) which was coordinated upon his release from [facility]f. Pt. told staff he was going to stay at a friends home for the weekend prior to reporting to [facility]. Pt. explained signing a 48 hour notice secondary to having to return to program to avoid losing his place. Pt. reported currently attended an IOP with Sher[facility]. Pt. reported IOP has been beneficial since discharge from alf. Option of pt. beginning a methadone program discussed. Pt. unsure if [facility] allows its residents to be on methadone maintenance but expressed interest and intention of discussing option with [facility] staff. Psychoeducation regarding risks of relapse and overdose provided. Pt. receptive to feedback and expressed motivation for tx and maintaining sobriety, stating I was doing well. I just came across the wrong people. AMA discharge explained. Pt. agreeable. Pt. discharge focused but cooperative and easily engaged. Pt denied sxs of depression/anxiety. Pt. denied SI/HI and was able to contract for safety. Pt. visible on 3NP and observed socializing appropriately with select peers. [place] emphasized importance of discussing possibility of being connected to a psychiatrist upon return to program. Pt. agreeable. Discussed with Family/SO: No Was Patient/Family/SO present at Treatment Team Meeting: Yes <Dorothea Parmar - Last Filed: 09/28/18 09:04> - Diagnosis (1) Opiate dependence Status: Acute Interventions: 09/28/18 09:04 motivational therapy
--- NOTE | 2018-09-25 08:46 | PCM.PYCHPN ---
Psychiatric Progress Note - Psychiatric Progress Note Patient seen today, length of contact: Pt evaluated, case discussed w/ team, chart reviewed Patient Chief Complaint: Depression Problems Identified/Issues Discussed: Patient continues to report feeling depressed and hopeless, w/ suicidal ideation to jump off a bridge; poor sleep and poor appetite. We discussed continued titration of Seroquel. No adverse effects to medications currently reported. Medication Change: Yes (Increase Seroquel) Medical Record Reviewed: Yes Consults ordered or reviewed: Medicine consult pending Mental Status Examination - Cognitive Function Orientation: Person, Place, Situation, Time Memory: Intact Attention: WNL Concentration: WNL Association: WN Fund of Knowledge: [facility] Decription of patient's judgement and insights: Poor I/J - Mood Mood: Depressed, Anxious - Affect Affect: Constricted, Depressed - Speech Speech: Appropriate - Formal Thought Process Formal Thought Process: No Impairment Psychotic Thoughts and Behaviors: NO AH/VH/paranoia/delusions - Suicidal Ideation Suicidal Ideation: Yes Plan: Plan to jump off bridge - Homicidal Ideation Homicidal Ideation: No Goal/Treatment Plan - Goal/Treatment Plan Need for Continued Stay: Remain at risks for inpatient hospitalization, Severe depression anxiety Progress Toward Problem(s) and Goals/Treatment Plan: Substance induced mood disorder with depressive features, Opiate use disorder, Alcohol use disorder -Increase Seroquel -Medicine consult pending -Individual and group therapy -Psychoeducation -Disposition planning
[2018-09-25 17:42] VITALS: RESP 18
--- NOTE | 2018-09-26 09:15 | PCM.PYCHPN ---
Psychiatric Progress Note - Psychiatric Progress Note Patient seen today, length of contact: Pt evaluated, case discussed w/ team, chart reviewed Patient Chief Complaint: Depression Problems Identified/Issues Discussed: Patient reports that his mood is improving. He reports improved sleep/appetite. He denies acute ideation to harm himself or others. He signed a 48 hr letter requesting to be discharged. NO AH/VH/paranoia. Medication Change: No Medical Record Reviewed: Yes Consults ordered or reviewed: Medicine consult pending Mental Status Examination - Cognitive Function Orientation: Person, Place, Situation, Time Memory: Intact Attention: WNL Concentration: WNL Association: [facility] Fund of Knowledge: [facility] Decription of patient's judgement and insights: Poor I/J - Mood Mood: Depressed, Anxious - Affect Affect: Constricted, Depressed - Speech Speech: Appropriate - Formal Thought Process Formal Thought Process: No Impairment Psychotic Thoughts and Behaviors: NO AH/VH/paranoia/delusions - Suicidal Ideation Suicidal Ideation: No - Homicidal Ideation Homicidal Ideation: No Goal/Treatment Plan - Goal/Treatment Plan Need for Continued Stay: Remain at risks for inpatient hospitalization, Severe depression anxiety Progress Toward Problem(s) and Goals/Treatment Plan: Substance induced mood disorder with depressive features, Opiate use disorder, Alcohol use disorder; patient reports his mood is improving and is requesting to be discharged. He denies acute SI. -Continue current medications -Patient submitted a 48 hr letter requesting to be discharged. Will observe clinically for safety overnight. -Medicine consult pending -Individual and group therapy -Psychoeducation -Disposition planning
--- NOTE | 2018-09-26 18:21 | CP.PCM.CON ---
History of Present Illness - History of Present Illness History of Present Illness: 48 year old male with PMHx depression, alcohol use disorder and opioid use disorder admitted to [facility] psychiatry unit for management of depression and suicidal ideation. Per protocol, medicine was consulted for patient's medical management.. Patient reports intermittent heartburn and epigastric pain but denies any epigastric pain now. Denies headache, dizziness, cough, dyspnea, chest pain, nausea, vomiting,dysuria, fever or chills. ROS: All 12 systems reviewed and negative except as mentioned in HPI. PMD: none PMHx: Depression, hiatal hernia, alcohol use disorder and opioid use disorder, PsurgHx: none SocialHx: undomicile, smokes cigarettes 1 PPD for 3 yrs, alcohol use (last drink 3 beers about 3 days ago) and heroine use (last use 5 bags 3 days ago), denies IV drugs uses. FamilyHx: non-contributory Allergies: Penicillin (rash), haloperidol, fish and eggs Meds: as per med rec ( Review of Systems - Review of Systems Review of Systems: All 12 systems reviewed and negative except as mentioned in HPI Past Patient History - Infectious Disease Hx of Infectious Diseases: None - Past Medical History & Family History Past Medical History?: No - Past Social History Smoking Status: Heavy Smoker > 10 Cigarettes Daily - CARDIAC Hx Cardiac Disorders: No - PULMONARY Hx Respiratory Disorders: No - NEUROLOGICAL Hx Neurological Disorder: No - HEENT Hx HEENT Problems: No - RENAL Hx Chronic Kidney Disease: No - ENDOCRINE/METABOLIC Hx Endocrine Disorders: No - HEMATOLOGICAL/ONCOLOGICAL Hx Blood Disorders: No - INTEGUMENTARY Hx Dermatological Problems: No - MUSCULOSKELETAL/RHEUMATOLOGICAL Hx Musculoskeletal Disorders: No - GASTROINTESTINAL Hx Gastrointestinal Disorders: No - GENITOURINARY/GYNECOLOGICAL Hx Genitourinary Disorders: No - PSYCHIATRIC Hx Substance Use: Yes - SURGICAL HISTORY Hx Surgeries: Yes Hx Orthopedic Surgery: Yes (14 yrs ago rt ankle) - ANESTHESIA Hx Anesthesia: Yes Hx Anesthesia Reactions: No Hx Malignant Hyperthermia: No Has any member of the family had a problem w/ anesthesia?: No Meds Allergies/Adverse Reactions: Allergies Allergy/AdvReac Type Severity Reaction Status Date / Time FISH Allergy Severe RASH Verified 09/23/18 23:47 EGG Allergy RASH Verified 09/23/18 23:47 haloperidol [From Haldol] Allergy SHORTNESS Verified 09/23/18 23:47 OF BREATH Penicillins Allergy RASH Verified 09/23/18 23:47 - Medications Medications: Current Medications Acetaminophen (Tylenol 325mg Tab) 650 mg PO Q4 PRN PRN Reason: Pain, moderate (4-7) Al Hydrox/Mg Hydrox/Simethicone (Maalox Plus 30 Ml) 30 ml PO Q4 PRN PRN Reason: Dyspepsia Clonidine HCl (Catapres) 0.1 mg PO TID COUNT INCLUDES THE [facility] Last Admin: 09/26/18 17:14 Dose: 0.1 mg Clonidine HCl (Catapres) 0.1 mg PO Q12 PRN PRN Reason: Opiate reversal Cyclobenzaprine HCl (Flexeril) 5 mg PO Q8 PRN PRN Reason: Muscle spasm Last Admin: 09/26/18 13:08 Dose: 5 mg Diphenhydramine HCl (Benadryl) 50 mg IM Q6 PRN PRN Reason: Extrapyramidal S/S Unable PO Diphenhydramine HCl (Benadryl) 50 mg PO Q6 PRN PRN Reason: Extrapyramidal Symptoms Gabapentin (Neurontin) 200 mg PO TID COUNT INCLUDES THE [facility] Last Admin: 09/26/18 17:14 Dose: 200 mg Haloperidol (Haldol) 5 mg PO Q4 PRN PRN Reason: Agitation Haloperidol Lactate (Haldol) 5 mg IM Q4 PRN PRN Reason: Agitation, Unable to Take PO Loperamide HCl (Imodium) 2 mg PO Q6 PRN PRN Reason: Diarrhea Lorazepam (Ativan) 2 mg IM Q4 PRN PRN Reason: Anxiety/Agitation,Unable PO Lorazepam (Ativan) 2 mg PO Q4 PRN PRN Reason: Anxiety/Agitation Last Admin: 09/26/18 17:14 Dose: 2 mg Magnesium Hydroxide (Milk Of Magnesia) 30 ml PO HS PRN PRN Reason: Constipation Quetiapine Fumarate (Seroquel) 200 mg PO HS COUNT INCLUDES THE [facility] Last Admin: 09/25/18 21:11 Dose: 200 mg Physical Exam - Constitutional Appears: No Acute Distress, Older Than Stated Age - Head Exam Head Exam: NORMAL INSPECTION - Eye Exam Eye Exam: Normal appearance - ENT Exam ENT Exam: Mucous Membranes Moist - Neck Exam Neck exam: Positive for: Normal Inspection - Respiratory Exam Respiratory Exam: Clear to Auscultation Bilateral, NORMAL BREATHING PATTERN. absent: Rales, Rhonchi, Wheezes - Cardiovascular Exam Cardiovascular Exam: REGULAR RHYTHM, +S1, +S2 - GI/Abdominal Exam GI & Abdominal Exam: Normal Bowel Sounds, Soft. absent: Tenderness - Extremities Exam Extremities exam: Positive for: normal inspection. Negative for: calf tenderness - Neurological Exam Neurological exam: Alert, Normal Gait, Oriented x3 - Skin Skin Exam: Normal Color Additional comments: No signs of IV drugs use Results - Vital Signs Recent Vital Signs: Last Vital Signs Temp 97.4 F L 09/26/18 09:00 Pulse 97 H 09/26/18 17:14 Resp 18 09/26/18 09:00 BP 137/87 09/26/18 17:14 Pulse Ox 99 09/24/18 08:00 - Labs Result Diagrams: 09/24/18 03:00 09/24/18 03:00 Assessment & Plan - Assessment and Plan (Free Text) Assessment: 48 year old male with PMHx if depression, alcohol use disorder and opioid use disorder admitted to [facility] psychiatry unit for management of depression and suicidal ideation. 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 Sanchez Sue, pgy-2
[2018-09-27] MEDS ORDERED: Pantoprazole 20 mg EC Tab PO SCH (09:00)
[2018-09-27 09:01] VITALS: BP 142/98; PULSE 72
[2018-09-27 11:30] VITALS: TEMP 97.2
--- NOTE | 2018-09-27 11:31 | PCM.PYCHDC ---
Mental Status Examination - Mental Status Examination Orientation: Person, Place, Situation Memory: Intact Mood: Neutral Affect: Constricted Speech: Appropriate Attention: WNL Concentration: WNL Association: WNL Fund of Knowledge: WNL Formal Thought Process: No Impairment Description of patient's judgement and insight: partial insight poor judgment Psychotic Thoughts and Behaviors: pt denied any current psychotic symptoms , non elicited Suicidal Ideation: No Current Homicidal Ideation?: No Discharge Summary - Discharge Note Reason for Hospitalization: pt is 48 ys old male with previous diagnosis of depression, opiate and alcohol dependence, presented to ER having suicidal ideation with plan to jump off the bridge pt reported has been increasingly depressed in the past few weeks since his discharge from shelter, in the context of being homeless loosing his apartment , having to put his dog to sleep, having financial difficulties and unable to support himself pt relapsed on heroin using about three bags daily, on day of evaluation he also used unspecified amount of alcohol on the unit patient is uncooperative with poor eye contact, reported feeling hopeless, low energy, poor motivation passive suicidal ideation without active plan on the unit, denied command hallucinations, denied homicidal ideation Consultations:: List each consultation separately and include: 1. Reason for request. 2. Findings. 3. Follow-up Summary of Hospital Course include:: 1. Description of specific treatment plan utilized for patients during their course of treatmen. 2. Summarize the time- course for resolution of acute symptoms and/or regressed behaviors. 3. Describe issues identified and worked on during hospitalization. 4. Describe medication utilized. 5. Describe medical problems identified and treated. 6. Reassessment of suicide risk Summary of Hospital Course: pt on admission was started on clonidine protocol and monitored for symptoms and signs of opiate withdrawals pt was also started on neurontin pt on second day of admission signed 48 hour notice requestiong to be discharged pt was educated about the risk of relapse with possible overdose , pt understood the risk versus benefits of continuing with treatment, requested to be discharged against medical advise pt did not meet criteria for involuntary admission, denied any current suicidal or homicidal ideation denied perceptual disturbances pt was discharged against medical advise - Final Diagnosis (DSM 5) Condition upon Discharge: STABLE DSM 5: substance induced mood disorder opiate abuse alcohol abuse depression Disposition: AGAINST MEDICAL ADVICE Follow-up Treatment Plan: start clonidine protocol/ monitor pt for symptoms and signs of opiate withdrawal neurontin 200mg tid for anxiety and alcohol withdrawal seroquel 100mg qhs for depression/ increase gradually motivational group and supportive therapy internal medicine consult - Antipsychotic Medications Pt discharged on 2 or more routine antipsychotic medications: No
[2018-09-28 04:39] VITALS: O2SAT 98
== END 2018-09-27 13:18 | disposition left against medical advice (07) | DRG 746 ==
LOC: H.ER 23:28 → H.ERHOLD 09-24 05:55 → H.PSYCH 09-24 09:48
PROVIDERS: ADMIT Psychiatry & Neurology Psychiatry; ATTEND Psychiatry & Neurology Psychiatry
PROC: GZHZZZZ Group Psychotherapy (ICD-10-PCS; principal; 2018-09-24)
PROC: HZ57ZZZ Individual Psychotherapy for Substance Abuse Treatment, Motivational Enhancement (ICD-10-PCS; 2018-09-24)
PROC: GZ56ZZZ Individual Psychotherapy, Supportive (ICD-10-PCS; 2018-09-24)
PROC: HZ56ZZZ Individual Psychotherapy for Substance Abuse Treatment, Psychoeducation (ICD-10-PCS; 2018-09-24)
DX: F11.14 Opioid abuse with opioid-induced mood disorder (principal); R45.851 Suicidal ideations; Z59.0 Homelessness; F17.210 Nicotine dependence, cigarettes, uncomplicated; Z91.012 Allergy to eggs; Z88.0 Allergy status to penicillin; Z91.013 Allergy to seafood; K44.9 Diaphragmatic hernia without obstruction or gangrene; F10.10 Alcohol abuse, uncomplicated; Y90.0 Blood alcohol level of less than 20 mg/100 ml; F32.9 Major depressive disorder, single episode, unspecified; F41.9 Anxiety disorder, unspecified

== ENCOUNTER 2018-12-17 01:07 | Emergency (ER) | payer MEDICAID, OTHER ==
[2018-12-17 01:07] VITALS: BMI 30.8
[2018-12-17 01:22] VITALS: BP 148/83; PULSE 82; RESP 16; TEMP 98.4; O2SAT 97
--- NOTE | 2018-12-17 02:13 | ED PDOC ---
HPI: Psych/Substance Abuse Time Seen by Provider: 12/17/18 01:47 Chief Complaint (Nursing): Psychiatric Evaluation Chief Complaint (Provider): psych eval History Per: Patient History/Exam Limitations: no limitations Onset/Duration Of Symptoms: Days, Persistent Current Symptoms Are (Timing): Still Present Suicide/Self Injury Attempted (Context): None Modifying Factor(s): Alcohol, Other (heroin ) Severity: None Associated Symptoms: Anxiety, Depression, Suicidal Thoughts Additional History Per: Patient Additional Complaint(s): 48 year old male with history of substance abuse, bipolar, schizophrenia presents to the ED with c/o of depression and suicidal/homicidal ideations. Patient states he lost his home and has been homeless for a few months. He states he has been feeling severally depressed for 2 weeks with ideations to jump in the river. Additionally he reports feeling homicidal with and feels like hurting "a few people" with no plan. Patient states he last snorted heroin and drank alcohol at 9pm this evening. Patient was evaluated by crisis and discharged from [facility] at 00:16 this evening. Patient denies physical complaints. Past Medical History Reviewed: Historical Data, Nursing Documentation, Vital Signs Vital Signs: Last Vital Signs Temp 98.4 F 12/17/18 01:18 Pulse 82 12/17/18 01:18 Resp 16 12/17/18 01:18 BP 148/83 12/17/18 01:18 Pulse Ox 97 12/17/18 01:18 Primary Care Provider: FAMILY PROVIDER,NO - Medical History PMH: Anxiety, Bipolar Disorder, Depression, Schizophrenia Denies: Diabetes, Hepatitis, HIV, HTN, Chronic Kidney Disease, Seizures, Sexually Transmitted Disease - Surgical History Surgical History: No Surg Hx - Family History Family History: States: Unknown Family Hx - Social History Alcohol: > 2 Drinks/Day Drugs: Other (heroin ) - Immunization History Hx Tetanus Toxoid Vaccination: Yes Hx Influenza Vaccination: No Hx Pneumococcal Vaccination: No - Home Medications Home Medications: Ambulatory Orders Medication Instructions Recorded QUEtiapine [Seroquel] 100 mg PO HS #30 tab 11/05/18 Naloxone HCl [Narcan] 4 mg NS ONCE PRN #1 spray 12/17/18 - Allergies Allergies/Adverse Reactions: Allergies Allergy/AdvReac Type Severity Reaction Status Date / Time FISH Allergy Severe RASH Verified 10/29/18 23:19 EGG Allergy RASH Verified 10/29/18 23:19 haloperidol [From Haldol] Allergy SHORTNESS Verified 10/29/18 23:19 OF BREATH Penicillins Allergy RASH Verified 10/29/18 23:19 Review of Systems ROS Statement: Except As Marked, All Systems Reviewed And Found Negative Constitutional: Negative for: Fever, Chills, Sweats, Weakness ENT: Negative for: Ear Pain, Nose Pain, Mouth Pain, Throat Pain Cardiovascular: Negative for: Chest Pain, Palpitations Respiratory: Negative for: Shortness of Breath, SOB with Exertion, Wheezing Gastrointestinal: Negative for: Nausea, Vomiting, Abdominal Pain, Diarrhea Psych: Positive for: Depression, Suicidal ideation Physical Exam - Reviewed Nursing Documentation Reviewed: Yes Vital Signs Reviewed: Yes - Physical Exam Appears: Positive for: Well, Non-toxic, No Acute Distress Head Exam: Positive for: ATRAUMATIC, NORMAL INSPECTION, NORMOCEPHALIC Skin: Positive for: Normal Color, Warm, DRY Eye Exam: Positive for: EOMI, Normal appearance, PERRL ENT: Positive for: Normal ENT Inspection Neck: Positive for: Normal, Painless ROM, Supple Cardiovascular/Chest: Positive for: Regular Rate, Rhythm, Chest Non Tender Respiratory: Positive for: CNT, Normal Breath Sounds Gastrointestinal/Abdominal: Positive for: Normal Exam, Bowel Sounds (normoactive ), Soft. Negative for: Tenderness Back: Positive for: Normal Inspection Extremity: Positive for: Normal ROM Neurological/Psych: Positive for: Awake, Alert, Normal Tone, Oriented, Mood /Affect (sad, calm and cooperative, poor hygiene ) - ECG O2 Sat by Pulse Oximetry: 97 Medical Decision Making Medical Decision Making: --1:1 observation --Crisis Eval 03:45 Patient cleared for dsicharged by dr. [place], Dx. opiate use disorder. Patient was gven follow-up to [facility] Patient upset that he being discharged. left ED without discharge paperwork. Disposition - Clinical Impression Clinical Impression: Opiate use - Patient ED Disposition Is Patient to be Admitted: No Counseled Patient/Family Regarding: Diagnosis - Disposition Disposition: Routine/Home Disposition Time: 03:45 Condition: STABLE Instructions: Drug Abuse and Drug Addiction (DC) Forms: [facility] (H[place]er) - POA Present On Arrival: None
== END 2018-12-17 03:26 | disposition home or self-care (01) ==
LOC: H.ER 01:07
DX: F11.90 Opioid use, unspecified, uncomplicated (principal); Z86.59 Personal history of other mental and behavioral disorders; Z88.0 Allergy status to penicillin; Z88.8 Allergy status to other drugs, medicaments and biological substances